=== PATIENT | male | born 1965 | race African-American/Black ===

== ENCOUNTER 2020-03-03 09:01 | Outpatient (REF) | payer OTHER, SELFPAY ==
[2020-03-03 10:47] LABS: Alanine Aminotransferase 25 U/L (0-40); Alkaline Phosphatase 97 U/L (39-117); Anion Gap 12 (12-20); Aspartate Amino Transferase 24 U/L (5-37); Bilirubin Total 0.5 mg/dL (0.0-1.0); Blood Urea Nitrogen 17 mg/dL (9-16); Calcium 8.8 mg/dL (8.4-10.2); Carbon Dioxide 31 mmol/L (22-29); Chloride 101 mmol/L (96-108); Cholesterol 167 mg/dL; Estimated Glomerular Filt Rate > 60; Glucose Fasting 95 mg/dL (60-99); HDL Cholesterol 30 mg/dL; LDL Cholesterol Calculated 117 mg/dl; Potassium 4.4 mmol/l (3.3-5.1); Sodium 140 mmol/L (135-145); Total Protein 7.4 g/dL (6.5-8.0); Triglycerides 100 mg/dL
[2020-03-03 11:00] LABS: Estimated Average Glucose 120 mg/dL; Hemoglobin A1c % 5.8 %
[2020-03-09 19:11] LABS: Stone Source KIDNEY
== END 2020-03-03 09:02 | disposition home or self-care (01) ==
LOC: HO.LAB 09:01
PROVIDERS: PCP Internal Medicine; Visit Provider Internal Medicine
DX: N20.0 Calculus of kidney (principal); E78.00 Pure hypercholesterolemia, unspecified
CPT/HCPCS: 80053; 80061; 82365; 83036; 88300

== ENCOUNTER 2020-05-15 13:00 | Outpatient (REF) | payer OTHER, SELFPAY | END 2020-05-15 13:01 | disposition home or self-care (01) | LOC: HO.LAB 13:00 | PROVIDERS: PCP Internal Medicine; Visit Provider Internal Medicine | DX: Z20.822 Contact with and (suspected) exposure to COVID-19 (principal) | CPT/HCPCS: 36415; C9803; U0003 ==

== ENCOUNTER 2020-06-12 08:55 | Outpatient (REF) | payer OTHER, SELFPAY ==
--- NOTE | ~2020-06-12 | XR_ITS ---
EXAMINATION: XR KNEE, RIGHT XR KNEE, LEFT CLINICAL INFORMATION: Pain. COMPARISON: None TECHNIQUE: AP and lateral views of the right and left knee. FINDINGS: Right knee: No acute fracture or dislocation. No joint space narrowing or marginal osteophytes. No osseous erosion. No abnormal soft tissue calcification. No significant joint effusion. Left knee: No acute fracture or dislocation. No joint space narrowing or marginal osteophytes. No osseous erosion. No abnormal soft tissue calcification. No significant joint effusion. XR/XR knee LT 2V IMPRESSION: Right knee: Unremarkable examination. Left knee: Unremarkable examination.
--- NOTE | ~2020-06-12 | XR_ITS ---
EXAMINATION: XR KNEE, RIGHT XR KNEE, LEFT CLINICAL INFORMATION: Pain. COMPARISON: None TECHNIQUE: AP and lateral views of the right and left knee. FINDINGS: Right knee: No acute fracture or dislocation. No joint space narrowing or marginal osteophytes. No osseous erosion. No abnormal soft tissue calcification. No significant joint effusion. Left knee: No acute fracture or dislocation. No joint space narrowing or marginal osteophytes. No osseous erosion. No abnormal soft tissue calcification. No significant joint effusion. XR/XR knee RT 2V IMPRESSION: Right knee: Unremarkable examination. Left knee: Unremarkable examination.
[2020-06-12 10:34] LABS: Alanine Aminotransferase 25 U/L (0-40); Albumin Level 3.9 g/dL (3.5-5.0); Alkaline Phosphatase 105 U/L (39-117); Anion Gap 12 (12-20); Aspartate Amino Transferase 20 U/L (5-37); Bilirubin Total 0.5 mg/dL (0.0-1.0); Blood Urea Nitrogen 21 mg/dL (9-16); Calcium 9.1 mg/dL (8.4-10.2); Carbon Dioxide 31 mmol/L (22-29); Chloride 101 mmol/L (96-108); Cholesterol 133 mg/dL; Estimated Glomerular Filt Rate > 60; Glucose Random 137 mg/dL (60-115); HDL Cholesterol 32 mg/dL; LDL Cholesterol Calculated 84 mg/dl; Potassium 4.8 mmol/L (3.3-5.1); Sodium 139 mmol/L (135-145); Total Protein 7.3 g/dL (6.5-8.0); Triglycerides 85 mg/dL
[2020-06-12 10:49] LABS: PSA,Total (Free>4and<10) 1.57 ng/mL (0.00-4.00)
== END 2020-06-12 08:56 | disposition home or self-care (01) ==
LOC: HO.LAB 08:55
PROVIDERS: Absent Provider Urology; PCP Internal Medicine; Visit Provider Internal Medicine
DX: E78.00 Pure hypercholesterolemia, unspecified (principal); M25.561 Pain in right knee; M25.562 Pain in left knee; R97.20 Elevated prostate specific antigen [PSA]; Z12.5 Encounter for screening for malignant neoplasm of prostate
CPT/HCPCS: 36415; 73560; 80053; 80061; 84153

== ENCOUNTER → 2020-06-18 09:17 | Outpatient (BNVA) | payer OTHER, SELFPAY | PROVIDERS: Visit Provider Urology ==

== ENCOUNTER → 2020-07-23 12:22 | Outpatient (BNVA) | payer OTHER, SELFPAY | PROVIDERS: PCP Internal Medicine; Visit Provider Surgery | DX: Z01.818 Encounter for other preprocedural examination (principal); E66.01 Morbid (severe) obesity due to excess calories; R06.02 Shortness of breath; Z68.42 Body mass index [BMI] 45.0-49.9, adult | CPT/HCPCS: 99202 ==

== ENCOUNTER → 2020-08-14 08:11 | Outpatient (BNVA) | payer OTHER, SELFPAY | PROVIDERS: PCP Internal Medicine; Visit Provider Surgery ==

== ENCOUNTER → 2020-11-02 12:48 | Outpatient (BNVA) | payer OTHER, SELFPAY | PROVIDERS: PCP Internal Medicine; Referring Provider Internal Medicine; Visit Provider Internal Medicine Cardiovascular Disease | DX: I49.3 Ventricular premature depolarization (principal); I25.10 Atherosclerotic heart disease of native coronary artery without angina pectoris; I10 Essential (primary) hypertension | CPT/HCPCS: 93005; 99212 ==

== ENCOUNTER 2020-11-02 13:41 | Emergency (ER) | payer OTHER, SELFPAY ==
--- NOTE | ~2020-11-02 | XR_ITS ---
EXAMINATION: XR FOOT, LEFT CLINICAL INFORMATION: Left fifth toe injury COMPARISON: None TECHNIQUE: AP, lateral, and oblique views of the left foot. FINDINGS: There is a nondisplaced fracture through the proximal phalanx of the fifth toe. No other fracture is seen. Joint spaces are normal. There is a small osteophyte at the Achilles tendon insertion to the calcaneus. Soft tissues are otherwise unremarkable. XR/XR foot LT min 3V IMPRESSION: Nondisplaced fracture of the proximal phalanx of the fifth toe.
[2020-11-02 13:46] VITALS: BP 156/86; PULSE 82; RESP 17; TEMP 36.7; O2SAT 96; BMI 50.2
--- NOTE | 2020-11-02 14:47 | ED_ITS ---
HPI - Extremity Injury (Lower) General Chief Complaint: Extremity Injury, Lower Stated Complaint: broken toe?? Time Seen by Provider: 11/02/20 14:01 Source: patient Mode of arrival: ambulatory Limitations: no limitations History of Present Illness HPI Narrative: 55-year-old male presenting to the emergency department with left pinky toe pain. Patient states last evening he was walking to the bathroom around 02:00 when he is tripped over a suitcase striking his left pinky toe since he has had pain is concerned it is broken. Denies any medications prior to arrival. Denies head injury or other areas of discomfort/ trauma. Related Data Home Medications Medication Instructions Recorded Confirmed aspirin 81 mg tablet,delayed 81 mg PO DAILY 03/18/20 11/02/20 release finasteride 5 mg tablet 5 mg PO DAILY 06/18/20 11/02/20 Previous Rx's Medication Instructions Recorded atorvastatin 80 mg tablet 80 mg PO BEDTIME #90 tab 03/18/20 valsartan 320 mg tablet 320 mg PO DAILY #90 tab 03/18/20 sildenafil 100 mg tablet 100 mg PO .PRN PRN 30 Days #30 tab 06/18/20 amlodipine 5 mg tablet 5 mg PO DAILY #90 tab 10/07/20 tamsulosin 0.4 mg capsule 0.4 mg PO DAILY 90 Days #90 cap 10/08/20 Allergies Allergy/AdvReac Type Severity Reaction Status Date / Time No Known Allergies Allergy Verified 11/02/20 13:46 [No Known Allergies*] Review of Systems Review of Systems: Constitutional : No Weight loss, No Fever, No Chills, No Night Sweats, No Fatigue, No Malaise ENT/Mouth : No Hearing loss, No Ear Pain, No Nasal Congestion, No Sinus Pain, No Hoarseness, No sore throat, No Rhinorrhea, No Swallowing Difficulty Eyes: No Eye Pain, No Swelling, No Redness, No Foreign Body, No Discharge, No Vision Changes Cardiovascular : No Chest Pain, No SOB, No Dyspnea on Exertion, No Orthopnea, No Edema, No Palpitations Respiratory : No Cough, No Sputum, No Wheezing, No Smoke Exposure, No Dyspnea Gastrointestinal : No Nausea, No Vomiting, No Diarrhea, No Constipation, No abdominal Pain, No Hematochezia, No Melena Genitourinary : no irregular bleeding, No Dysuria, No Urinary Frequency, No Hematuria, No Urinary Incontinence, No Urgency, No Flank Pain, No Urinary Flow Changes, No Hesitancy Musculoskeletal : + joint pain, No Myalgias, + Joint Swelling Skin : No Skin Lesions, No rash Neuro : No Weakness, No Numbness, No Paresthesias, No Loss of Consciousness, No Dizziness, No Headache Psych : No Anxiety/Panic, No Depression, No SI/HI/AH/VH, No Social Issues, Heme/Lymph: No Bruising, No Bleeding,No Lymphadenopathy Endocrine : No Polyuria, No Polydipsia, No Temperature Intolerance [facility] Past Medical History Attestation statement: The following information was validated with the patient. Source: old records reviewed and obtained from family Medical History (Updated 11/02/20 @ 14:48 by TIANA Casas) BPH (benign prostatic hyperplasia) Coronary artery disease Hypercholesterolemia Hypertension Insomnia Morbid obesity Nephrolithiasis Obstructive sleep apnea PVCs (premature ventricular contractions) Surgical History History of carpal tunnel surgery of left wrist History of colonoscopy History of prostate biopsy Family History Family History Father S/P CABG x 1 Prostate cancer Diabetes Hypertension Mother Diabetes Hypertension Sister Hypertension Social History Social History Alcohol intake: never Patient Tobacco Use Status: Never used Tobacco Advance Directives: No Advance Directives Information Provided: No Physical Exam Vital Signs: Vital Signs: Last Vital Signs Temp 98.1 F 11/02/20 13:46 Pulse 82 11/02/20 13:46 Resp 17 11/02/20 13:46 BP 156/86 H 11/02/20 13:46 Pulse Ox 96 11/02/20 13:46 Body Mass Index 50.2 vital signs have been reviewed as normal and appeared to be correct. Blood pressure normal. Heart rate normal. Respiration rate normal. Temperature normal. Oxygen saturation normal. Appearance: Alert. Oriented X3. No acute distress. Head: Normal external exam. Normocephalic. Atraumatic. No Noel signs noted. No raccoon eyes noted Eyes: Conjunctiva and sclera normal. ENT: EAC normal. Moist mucous membranes. No drooling noted. No muffled voice noted. Neck: Normal inspection. Neck supple. FROM. No meningeal signs. CVS: Pulses normal throughout. Respiratory: No respiratory distress. Painless inspiration. No accessory muscle usage noted Abdomen: No visible injury noted. Back: Full range of motion noted. Skin: Skin warm and dry. Normal skin color. Normal skin turgor. Extremities: No lower extremity edema. Extremities exhibit normal range of motion. Patient with mild edema to the left 5th metatarsal joint pain to palpation over the proximal expect. Good distal pulses good capillary refill full range of motion without isolated tenderness to other areas of the left foot. Neuro: Oriented X 3. No motor deficit. No sensory deficit. Course Course Course Narrative: X-ray is negative will discharge home at this time with close outpatient follow-up and strict return precautions. MDM - Extremity Injury (Lower) MDM Narrative Medical decision making narrative: Patient's vital signs are stable and he is afebrile patient presenting to the ED with left 5th metatarsal injury concerning for fracture will obtain plain films looking for evidence of fracture dislocation. Will continue to monitor reassess pending the above foot is otherwise neurovascularly intact. No other acute signs of injury or trauma and no wounds or lacerations noted. Discharge Plan Discharge Clinical Impression: Fracture of toe Qualifiers: Encounter type: initial encounter Toe: lesser toe Fracture type: closed Phalanx: proximal Fracture alignment: nondisplaced Laterality: left Qualified Code(s): S92.515A - Nondisplaced fracture of proximal phalanx of left lesser toe(s), initial encounter for closed fracture Patient Disposition: Home, Self-Care Instructions: Toe Fracture (ED) Additional Instructions: You were seen in the emergency department today for left toe injury and x-ray was performed with evidence of a nondisplaced proximal 5th digit fracture that will heal on its own with supportive care. Arnav tape was placed on the wound which will help with healing please use a closed toed shoe to also aid in healing. Change arnav-tape once daily. Follow-up with your doctor if pain persists. Prescriptions: No Action amlodipine 5 mg tablet 5 mg PO DAILY Qty: 90 RF: 2 tamsulosin 0.4 mg capsule 0.4 mg PO DAILY 90 Days Qty: 90 RF: 2 aspirin [Adult Aspirin Regimen] 81 mg tablet,delayed release (DR/EC) 81 mg PO DAILY RF: 0 atorvastatin 80 mg tablet 80 mg PO BEDTIME Qty: 90 RF: 1 valsartan 320 mg tablet 320 mg PO DAILY Qty: 90 RF: 2 finasteride 5 mg tablet 5 mg PO DAILY RF: 0 sildenafil 100 mg tablet 100 mg PO .PRN PRN (Reason: sexual activity) 30 Days Qty: 30 RF: 1 Interventions: ED Discharge Assessment Last Done: 11/02/20 15:10 Discharge Date/Time: 11/02/20 15:12 Print Language: Malay
== END 2020-11-02 15:12 | disposition home or self-care (01) ==
PROVIDERS: Emergency Provider Emergency Medicine; PCP Internal Medicine
DX: S92.515A Nondisplaced fracture of proximal phalanx of left lesser toe(s), initial encounter for closed fracture (principal); I10 Essential (primary) hypertension; Z79.899 Other long term (current) drug therapy; W18.41XA Slipping, tripping and stumbling without falling due to stepping on object, initial encounter; Y93.9 Activity, unspecified; Y92.9 Unspecified place or not applicable; Y99.9 Unspecified external cause status
CPT/HCPCS: 73630; 99283

== ENCOUNTER 2020-11-20 08:26 | Outpatient (REF) | payer OTHER, SELFPAY ==
[2020-11-20 09:19] LABS: MANUAL DIFF FLAG NO
[2020-11-20 09:25] LABS: Basophils Absolute Auto 0.1 X10*3/uL (0.0-0.2); Basophils Percent Auto 0.5 % (0-2); Eosinophils Absolute Auto 0.1 X10*3/uL (0.0-0.4); Hematocrit 48.6 % (42-52); Hemoglobin 15.5 g/dl (14.0-18.0); Imm Gran Abs Auto 0.03 X10*3/uL (0.00-0.03); Imm Gran Pct Auto 0.3 % (0.0-0.4); Lymphocytes Percent Auto 17.7 % (20-40); Mean Corpuscular HGB Conc 31.9 g/dl (31.0-36.0); Mean Corpuscular Hemoglobin 28.7 pg (27.0-33.0); Mean Corpuscular Volume 89.8 fL (80-98); Mean Platelet Volume 9.5 fL (9.4-12.4); Monocytes Percent Auto 8.4 % (2-11); Neutrophils Absolute Auto 8.3 X10*3/uL (2.0-8.3); Neutrophils Percent Auto 72.1 % (45-73); Platelet Count 277 X10*3/uL (160-400); Red Blood Count 5.41 X10*6/uL (4.60-5.80); Red Cell Distribution Width 14.6 % (11.0-16.0); White Blood Count 11.4 X10*3/uL (4.8-10.8)
[2020-11-20 09:30] LABS: Estimated Average Glucose 137 mg/dL; Hemoglobin A1c % 6.4 %
[2020-11-20 09:44] LABS: Carbon Dioxide 32 mmol/L (22-29); Chloride 102 mmol/L (96-108); Potassium 4.5 mmol/L (3.3-5.1); Sodium 140 mmol/L (135-145)
[2020-11-20 09:45] LABS: Alanine Aminotransferase 34 U/L (0-40); Alkaline Phosphatase 107 U/L (39-117); Anion Gap 11 (12-20); Aspartate Amino Transferase 30 U/L (5-37); Bilirubin Total 0.6 mg/dL (0.0-1.0); Blood Urea Nitrogen 18 mg/dL (9-16); C Reactive Protein 1.97 mg/dL (< or = 0.50); Calcium 9.6 mg/dL (8.4-10.2); Cholesterol 134 mg/dL; Estimated Glomerular Filt Rate > 60; Glucose Fasting 127 mg/dL (60-99); HDL Cholesterol 30 mg/dL; Iron 46 mcg/dL (45-160); LDL Cholesterol Calculated 90 mg/dl; Percent Iron Saturation 20 % (15-50); Total Iron Binding Capacity 233 mcg/dL (228-428); Total Protein 7.4 g/dL (6.5-8.0); Triglycerides 74 mg/dL; Unsaturated Iron Binding 187 ug/dL
[2020-11-20 10:05] LABS: Thyroid Stimulating Hormone 3.02 uIU/mL (0.32-4.0); Vitamin D 25-OH Total 9.6 ng/mL (>30)
[2020-11-20 10:25] LABS: Vitamin B12 292 pg/mL (200-900)
[2020-11-20 11:05] LABS: Prostate Specific Antigen 1.39 ng/mL (<0.05-4.0)
[2020-11-23 15:47] LABS: Calcium (PTHI) 9.4 mg/dL (8.6-10.3); PTHI 58 pg/mL (14-64)
[2020-11-24 17:26] LABS: Zinc 64 mcg/dL (60-130)
[2020-11-25 15:37] LABS: Vitamin A 29 mcg/dL (38-98)
[2020-11-26 15:01] LABS: Vitamin B1 9 nmol/L (8-30)
== END 2020-11-20 08:27 | disposition home or self-care (01) ==
LOC: HO.LAB 08:26
PROVIDERS: Surgery; PCP Internal Medicine; Visit Provider Urology
DX: Z01.818 Encounter for other preprocedural examination (principal); Z12.5 Encounter for screening for malignant neoplasm of prostate; K91.2 Postsurgical malabsorption, not elsewhere classified; Z90.3 Acquired absence of stomach [part of]; N13.8 Other obstructive and reflux uropathy; N40.1 Benign prostatic hyperplasia with lower urinary tract symptoms; R97.20 Elevated prostate specific antigen [PSA]
CPT/HCPCS: 36415; 80053; 80061; 82306; 82607; 83036; 83540; 83970; 84153; 84425; 84443; 84590; 84630; 85025; 86140

== ENCOUNTER → 2020-12-01 10:24 | Outpatient (BNVA) | payer OTHER, SELFPAY | PROVIDERS: PCP Internal Medicine; Visit Provider Urology | DX: N40.1 Benign prostatic hyperplasia with lower urinary tract symptoms (principal); N13.8 Other obstructive and reflux uropathy; N52.9 Male erectile dysfunction, unspecified; R97.20 Elevated prostate specific antigen [PSA] | CPT/HCPCS: 51798; 99212 ==

== ENCOUNTER 2021-05-25 07:43 | Outpatient (REF) | payer OTHER, SELFPAY ==
[2021-05-25 09:14] LABS: PSA,Total (Free>4and<10) 1.32 ng/mL (0.00-4.00)
== END 2021-05-25 07:44 | disposition home or self-care (01) ==
LOC: HO.LAB 07:43
PROVIDERS: PCP Internal Medicine; Visit Provider Urology
DX: Z12.5 Encounter for screening for malignant neoplasm of prostate (principal); N40.1 Benign prostatic hyperplasia with lower urinary tract symptoms; N13.8 Other obstructive and reflux uropathy
CPT/HCPCS: 36415; 84153

== ENCOUNTER → 2021-06-03 11:42 | Outpatient (BNVA) | payer OTHER, SELFPAY | PROVIDERS: PCP Internal Medicine; Visit Provider Urology ==

== ENCOUNTER 2021-07-20 08:53 | Outpatient (REF) | payer OTHER, SELFPAY ==
[2021-07-20 09:11] LABS: MANUAL DIFF FLAG NO
[2021-07-20 09:31] LABS: Basophils Absolute Auto 0.1 X10*3/uL (0.0-0.2); Basophils Percent Auto 0.6 % (0-2); Eosinophils Absolute Auto 0.1 X10*3/uL (0.0-0.4); Eosinophils Percent Auto 0.8 % (0-4); Hematocrit 48.9 % (42.0-52.0); Hemoglobin 15.5 g/dl (14.0-18.0); Imm Gran Abs Auto 0.04 X10*3/uL (0.00-0.03); Imm Gran Pct Auto 0.3 % (0.0-0.4); Lymphocytes Absolute Auto 2.2 X10*3/uL (1.2-4.9); Mean Corpuscular HGB Conc 31.7 g/dl (31.0-36.0); Mean Corpuscular Hemoglobin 28.3 pg (27.0-33.0); Mean Corpuscular Volume 89.2 fL (80.0-98.0); Mean Platelet Volume 9.5 fL (9.4-12.4); Monocytes Absolute Auto 0.8 X10*3/uL (0.1-1.2); Monocytes Percent Auto 7.1 % (2-11); Neutrophils Absolute Auto 8.5 x10*3/uL (2.0-8.3); Neutrophils Percent Auto 72.2 % (45-73); Platelet Count 293 X10*3/uL (160-400); Red Blood Count 5.48 X10*6/uL (4.60-5.80); White Blood Count 11.8 X10*3/uL (4.8-10.8)
[2021-07-20 09:49] LABS: Estimated Average Glucose 131 mg/dL; Hemoglobin A1c % 6.2 %
[2021-07-20 10:14] LABS: Free T4 (Free Thyroxine) 1.01 ng/dL (0.71-1.85); Prostate Specific Antigen Scr 0.98 ng/mL (<0.05-4.0)
[2021-07-20 10:29] LABS: Folate 5.4 ng/mL (> or = 4.0); Vitamin B12 245 pg/mL (200-900)
== END 2021-07-20 08:54 | disposition home or self-care (01) ==
LOC: HO.LAB 08:53
PROVIDERS: PCP Internal Medicine; Visit Provider Internal Medicine
DX: Z01.818 Encounter for other preprocedural examination (principal); I25.10 Atherosclerotic heart disease of native coronary artery without angina pectoris; E78.00 Pure hypercholesterolemia, unspecified; E55.9 Vitamin D deficiency, unspecified; Z12.5 Encounter for screening for malignant neoplasm of prostate
CPT/HCPCS: 36415; 82607; 82746; 83036; 84153; 84439; 85025

== ENCOUNTER 2021-08-23 10:01 | Outpatient (REF) | payer OTHER, SELFPAY ==
--- NOTE | ~2021-08-23 | XR_ITS ---
EXAMINATION: XR KNEE, LEFT CLINICAL INFORMATION: Knee pain. COMPARISON: X-ray 06/12/2020 TECHNIQUE: Four views of the left knee. FINDINGS: No fracture or dislocation. Normal alignment. Joint spaces are maintained. No significant effusion seen. No abnormal soft tissue calcification. XR/XR knee LT 4V IMPRESSION: No acute osseous abnormality.
== END 2021-08-23 10:02 | disposition home or self-care (01) ==
LOC: HO.XRAY 10:01
PROVIDERS: PCP Internal Medicine; Visit Provider Internal Medicine
DX: M25.562 Pain in left knee (principal)
CPT/HCPCS: 73564

== ENCOUNTER 2021-09-21 10:45 | Outpatient (REF) | payer OTHER, SELFPAY ==
--- NOTE | 2021-09-21 17:28 | PFT_ITS ---
Forced vital capacity 55%, FEV1 59%. FEV1/FVC ratio is 85. RFF12-80 is 72% and MVV 53%. Post bronchodilator therapy, there is no change. Total lung capacity 58%. Residual volume 65%. Diffusion capacity 84%. CONCLUSION: Restrictive lung disease, moderately severe. No obstructive airway disorder. MD ANTONETTE Lima/MATI / [id number]
== END 2021-09-21 10:46 | disposition home or self-care (01) ==
LOC: HO.RESP 10:45
PROVIDERS: PCP Internal Medicine; Visit Provider Internal Medicine
DX: R06.02 Shortness of breath (principal)
CPT/HCPCS: 94060; 94727; 94729

== ENCOUNTER 2021-09-23 13:51 | Outpatient (REF) | payer OTHER, SELFPAY ==
--- NOTE | ~2021-09-23 | US_ITS ---
EXAMINATION: US RETROPERITONEAL LIMITED (RENAL ONLY) CLINICAL INFORMATION: Calculus of kidney. COMPARISON: CT abdomen pelvis 11/07/2019. US abdomen 10/30/2018.US renal 09/10/2018. TECHNIQUE: Real-time imaging of the kidneys. FINDINGS: RIGHT KIDNEY: 12.3 x 6.1 x 4.6 cm (SAG x AP x TRV). The kidney is normal in size, contour, and echogenicity. Renal cortical thickness is normal. No calculi or focal parenchymal lesions. No hydronephrosis. LEFT KIDNEY: 13.5 x 6.2 x 5.8 cm (SAG x AP x TRV). The kidney is normal in size, contour, and echogenicity. Renal cortical thickness is normal. No calculi or focal parenchymal lesions. No hydronephrosis. There is a small hyperechoic observation in the lower pole, likely representing a nonobstructive calculus or small vascular calcification. US/US renal BI IMPRESSION: Small approximately 0.3 cm hyperechoic focus in the lower pole of the left kidney, representing either a nonobstructive calculus or vascular calcification. No hydronephrosis.
== END 2021-09-23 13:52 | disposition home or self-care (01) ==
LOC: HO.US 13:51
DX: N20.0 Calculus of kidney (principal)
CPT/HCPCS: 76775

== ENCOUNTER 2021-10-29 10:28 | Outpatient (REF) | payer OTHER, SELFPAY ==
[2021-10-29 10:38] LABS: MANUAL DIFF FLAG NO
[2021-10-29 11:18] LABS: Basophils Absolute Auto 0.1 X10*3/uL (0.0-0.2); Basophils Percent Auto 0.6 % (0-2); Eosinophils Absolute Auto 0.1 X10*3/uL (0.0-0.4); Eosinophils Percent Auto 1.1 % (0-4); Hematocrit 46.9 % (42.0-52.0); Hemoglobin 15.1 g/dl (14.0-18.0); Imm Gran Abs Auto 0.03 X10*3/uL (0.00-0.03); Imm Gran Pct Auto 0.3 % (0.0-0.4); Lymphocytes Absolute Auto 2.3 X10*3/uL (1.2-4.9); Lymphocytes Percent Auto 21.5 % (20-40); Mean Corpuscular HGB Conc 32.2 g/dl (31.0-36.0); Mean Corpuscular Hemoglobin 28.3 pg (27.0-33.0); Mean Corpuscular Volume 87.8 fL (80.0-98.0); Mean Platelet Volume 9.7 fL (9.4-12.4); Neutrophils Absolute Auto 7.3 x10*3/uL (2.0-8.3); Neutrophils Percent Auto 67.5 % (45-73); Platelet Count 295 X10*3/uL (160-400); Red Blood Count 5.34 X10*6/uL (4.60-5.80); Red Cell Distribution Width 15.2 % (11.0-16.0); White Blood Count 10.8 X10*3/uL (4.8-10.8)
[2021-10-29 11:58] LABS: Alanine Aminotransferase 23 U/L (0-40); Albumin Level 3.8 g/dL (3.5-5.0); Alkaline Phosphatase 114 U/L (39-117); Anion Gap 13 (12-20); Aspartate Amino Transferase 25 U/L (5-37); Bilirubin Total 0.2 mg/dL (0.0-1.0); Blood Urea Nitrogen 17 mg/dL (9-16); Calcium 8.8 mg/dL (8.4-10.2); Carbon Dioxide 26 mmol/L (22-29); Chloride 103 mmol/L (96-108); Cholesterol 127 mg/dL; Estimated Glomerular Filt Rate > 60; Glucose Random 140 mg/dL (60-115); HDL Cholesterol 28 mg/dL; LDL Cholesterol Calculated 82 mg/dl; Potassium 4.1 mmol/L (3.3-5.1); Sodium 138 mmol/L (135-145); Total Protein 7.3 g/dL (6.5-8.0); Triglycerides 87 mg/dL
[2021-10-29 12:11] LABS: Free T4 (Free Thyroxine) 1.03 ng/dL (0.71-1.85); Prostate Specific Antigen Scr 1.02 ng/mL (<0.05-4.0); Thyroid Stimulating Hormone 2.28 uIU/mL (0.32-4.0)
[2021-10-29 12:18] LABS: Creatinine Urine 342.62 mg/dL; Microalbum/Creatinine Ratio Ur 89.8 ug/mg cr
[2021-10-29 12:22] LABS: Folate 8.3 ng/mL (> or = 4.0); Vitamin B12 305 pg/mL (200-900)
== END 2021-10-29 10:29 | disposition home or self-care (01) ==
LOC: HO.LAB 10:28
PROVIDERS: PCP Internal Medicine; Visit Provider Internal Medicine
DX: Z12.5 Encounter for screening for malignant neoplasm of prostate (principal); E11.65 Type 2 diabetes mellitus with hyperglycemia; E78.00 Pure hypercholesterolemia, unspecified; I25.10 Atherosclerotic heart disease of native coronary artery without angina pectoris; N13.8 Other obstructive and reflux uropathy; N40.1 Benign prostatic hyperplasia with lower urinary tract symptoms
CPT/HCPCS: 36415; 80053; 80061; 82043; 82607; 82746; 84153; 84439; 84443; 85025

== ENCOUNTER 2021-12-24 11:05 | Outpatient (REF) | payer OTHER, SELFPAY ==
[2021-12-24 12:53] LABS: Prostate Specific Antigen 0.99 ng/mL (<0.05-4.0)
== END 2021-12-24 11:06 | disposition home or self-care (01) ==
LOC: HO.LAB 11:05
PROVIDERS: PCP Internal Medicine; Visit Provider Urology
DX: Z12.5 Encounter for screening for malignant neoplasm of prostate (principal); N40.1 Benign prostatic hyperplasia with lower urinary tract symptoms; N13.8 Other obstructive and reflux uropathy
CPT/HCPCS: 36415; 84153

== ENCOUNTER 2022-04-11 10:19 | Outpatient (REF) | payer OTHER, SELFPAY ==
[2022-04-11 11:12] LABS: Estimated Average Glucose 143 mg/dL; Hemoglobin A1c % 6.6 %
[2022-04-11 11:49] LABS: Alanine Aminotransferase 20 U/L (0-40); Albumin Level 3.9 g/dL (3.5-5.0); Alkaline Phosphatase 96 U/L (39-117); Anion Gap 12 (12-20); Aspartate Amino Transferase 18 U/L (5-37); Bilirubin Direct 0.2 mg/dL (0.0-0.5); Bilirubin Total 0.5 mg/dL (0.0-1.0); Blood Urea Nitrogen 16 mg/dL (9-16); Calcium 9.4 mg/dL (8.4-10.2); Carbon Dioxide 28 mmol/L (22-29); Chloride 102 mmol/L (96-108); Cholesterol 158 mg/dL; Estimated Glomerular Filt Rate > 60; Glucose Random 121 mg/dL (60-115); HDL Cholesterol 29 mg/dL; LDL Cholesterol Calculated 111 mg/dl; Potassium 4.2 mmol/L (3.3-5.1); Sodium 138 mmol/L (135-145); Thyroid Stimulating Hormone 3.03 uIU/mL (0.32-4.0); Total Protein 7.2 g/dL (6.5-8.0); Triglycerides 93 mg/dL
== END 2022-04-11 10:20 | disposition home or self-care (01) ==
LOC: HO.LAB 10:19
PROVIDERS: PCP Internal Medicine; Visit Provider Internal Medicine
DX: E78.00 Pure hypercholesterolemia, unspecified (principal); I25.10 Atherosclerotic heart disease of native coronary artery without angina pectoris; R79.89 Other specified abnormal findings of blood chemistry
CPT/HCPCS: 36415; 80053; 80061; 82248; 83036; 84443

== ENCOUNTER 2022-05-15 17:10 | Emergency (ER) | payer OTHER, SELFPAY ==
--- NOTE | 2022-05-15 17:38 | ED_ITS ---
HPI - URI/Sore Throat General Chief Complaint: General Medical Stated Complaint: sore throat, white dots Time Seen by Provider: 05/15/22 18:21 Source: patient Mode of arrival: ambulatory Limitations: no limitations History of Present Illness HPI Narrative: Patient is a 56 year old male presents to the emergency department for evaluation of sore throat. onset 2 days ago. associated cough, nasal congestion. Reports his sister has been ill with similar symptoms. Related Data Home Medications Medication Instructions Recorded Confirmed aspirin 81 mg tablet,delayed 81 mg PO DAILY 03/18/20 04/14/22 release (Adult Aspirin Regimen) Previous Rx's Medication Instructions Recorded sildenafil 100 mg tablet 100 mg PO .PRN PRN sexual activity 06/18/20 30 days #30 tabs CPAP #1 ea 01/15/21 valsartan 320 mg tablet 320 mg PO DAILY #90 tabs 10/18/21 finasteride 5 mg tablet 5 mg PO DAILY 90 days #90 tabs 01/03/22 amlodipine 5 mg tablet 5 mg PO DAILY #90 tabs 03/30/22 tamsulosin 0.4 mg capsule 0.4 mg PO DAILY 90 days #90 caps 03/30/22 meloxicam 7.5 mg tablet 7.5 mg PO DAILY #20 tabs 04/14/22 rosuvastatin 40 mg tablet 40 mg PO DAILY 90 days #90 tabs 04/14/22 nirmatrelvir 300 mg (150 mg See Rx Instructions PO .COMPLEX 05/03/22 x2)-ritonavir 100 mg tablet,dose #30 ea pack(EUA) (Paxlovid) Allergies Allergy/AdvReac Type Severity Reaction Status Date / Time metformin AdvReac Intermediate Diarrhea Verified 05/15/22 17:43 Review of Systems Review of Systems: Constitutional: No fever. No chills. No weakness. No fatigue. ENT/ Mouth: No Ear Pain, positive Nasal Congestion, positive sore throat, No Rhinorrhea, No Swallowing Difficulty Skin: No rash or itching. Cardiovascular: No chest pain. No palpitations. Respiratory: No shortness of breath. Positive cough. No sputum production. Gastrointestinal: No nausea. No vomiting. No diarrhea. No abdominal pain. Genitourinary: No burning micturition. No urinary frequency. Neurologic: No headache. No dizziness. No syncope. No numbness or tingling in the extremities. Musculoskeletal: No muscle pain. No back pain. No joint pain or stiffness. Yes all other systems are reviewed and are negative [facility] Past Medical History Attestation statement: The following information was validated with the patient. Source: old records reviewed Medical History BPH (benign prostatic hyperplasia) Coronary artery disease Erectile dysfunction Hypercholesterolemia Hypertension Impaired glucose tolerance Insomnia Morbid obesity Nephrolithiasis Obstructive sleep apnea PVCs (premature ventricular contractions) Surgical History History of carpal tunnel surgery of left wrist History of colonoscopy History of prostate biopsy Family History Family History Father S/P CABG x 1 Prostate cancer Diabetes Hypertension Mother Diabetes Hypertension Sister Hypertension Social History Social History Housing: House Alcohol intake: never Patient Tobacco Use Status: Never used Tobacco e-Cigarette/Vaping Use: Never Used Second Hand Smoke Exposure: No Advance Directives: No Advance Directives Information Provided: No service: No Current occupational status: employed Cognitive needs: No Hearing needs: No Vision needs: No Physical Exam Vital Signs: Vital Signs: Last Vital Signs Temp 97.0 F 05/15/22 17:39 Pulse 71 05/15/22 17:39 Resp 17 05/15/22 17:39 BP 155/99 H 05/15/22 17:39 Pulse Ox 96 05/15/22 17:39 O2 Del Method 05/15/22 17:39 BMI result Body Mass Index 49.5 Appearance: Alert.?Oriented to person, place and time. No acute distress.?Normal affect. Eyes: Pupils equal, round and reactive to light.? ENT: TM normal bilaterally. Pharynx mildly erythematous without exudates, no tonsillar hypertrophy, uvula midline, no trismus, no drooling.?? Neck: Normal inspection.? Neck supple.??No cervical adenopathy CVS: Heart sounds normal. Normal heart rate and rhythm.? Pulses normal.?? Respiratory: No respiratory distress.? Lung sounds clear to auscultation bilat erally?? Abdomen: Soft and non-tender. Normoactive bowel sounds. Skin: Skin warm and dry.? Normal skin color.? ? Extremities: No lower extremity edema.? Neuro: Moves all extremities spontaneously. Sensation intact bilaterally. No motor deficits. Ambulates with normal steady gait. Medical Decision Making Medical Decision Making [facility] Narrative: Patient is a 56-year-old male presents emergency department for evaluation of upper respiratory symptoms was sore throat and congestion. Overall patient well appearing, afebrile without tachycardia tachypnea or hypoxia, physical examination pertinent for pharyngitis, no evidence of peritonsillar abscess. He is able to tolerate oral solids and liquids without complication. COVID- 19/influenza/strep testing were all negative. Suspect viral etiology of pharyngitis at this time. Reviewed worrisome signs and symptoms of warrant re- evaluation in the emergency department. Advised outpatient follow-up with primary care provider as needed. All questions answered. Stable for discharge. Differential Diagnosis Differential Diagnoses: The differential diagnosis associated with the presentation includes (Viral upper respiratory infection, RO pharyngitis, bacterial pharyngitis, GERD, peritonsillar abscess) Lab Data MDM Lab Attestation statement: I reviewed the patient's lab results. Labs: Lab Results 05/15/22 05/15/22 05/15/22 Range/Units 17:50 17:50 17:50 COVID-19 (CRISTIAN) Negative (Negative) COVID-19 Clin Com See Note Influenza Type A (BASHIR) Negative (Negative) Influenza Type B (BASHIR) Negative (Negative) Influenza A & B Note See Note S. pyogenes GrpA BASHIR Negative (Negative) Prescription Management I considered prescription management with: Antibiotic (Suspect viral etiology at this time) Discharge Plan Discharge Clinical Impression: Pharyngitis Patient Disposition: Home, Self-Care Instructions: Pharyngitis (ED) Additional Instructions: As discussed, testing for COVID, flu, and strep were all negative today. At this time symptoms are most likely due to a viral infection. Be sure to stay well hydrated, use throat lozenges/Chloraseptic throat spray You can take ibuprofen 200 mg, 3 tablets (600mg) every 6-8 hours as needed for pain, in addition to Tylenol 500 mg, 2 tablets (1,000mg) every 4-6 hours as needed for pain, but not to exceed 3 doses daily (3,000mg).? Follow-up with your primary care provider as needed for persistent symptoms. Return back to emergency department any new or worsening symptoms or concerns. Prescriptions: No Action (DME) CPAP See Rx Instructions .Route .MEDSUPPLY Qty: 1 0RF Rx Instructions: As directed valsartan 320 mg tablet 320 mg PO DAILY Qty: 90 2RF finasteride 5 mg tablet 5 mg PO DAILY 90 Days Qty: 90 1RF amlodipine 5 mg tablet 5 mg PO DAILY Qty: 90 2RF tamsulosin 0.4 mg capsule 0.4 mg PO DAILY 90 Days Qty: 90 1RF Paxlovid (EUA) 300 mg (150 mg x 2)-100 mg tablets,dose pack See Rx Instructions PO .COMPLEX Qty: 30 0RF Rx Instructions: take TWO 150 mg tablets of nirmatrelvir with ONE 100 mg tablet of ritonavir twice daily for 5 days PO aspirin [Adult Aspirin Regimen] 81 mg tablet,delayed release (DR/EC) 81 mg PO DAILY rosuvastatin 40 mg tablet 40 mg PO DAILY 90 Days Qty: 90 1RF meloxicam 7.5 mg tablet 7.5 mg PO DAILY Qty: 20 1RF sildenafil 100 mg tablet 100 mg PO .PRN PRN (Reason: sexual activity) 30 Days Qty: 30 1RF Rx Instructions: administer 60 minutes before intended activity Referrals: Po,Mara Doyle MD [Primary Care Provider] -
[2022-05-15 17:39] VITALS: BP 155/99; PULSE 71; RESP 17; TEMP 36.1; O2SAT 96; BMI 49.5
[2022-05-15 18:04] LABS: IDNOW Serial# 6674DD1D; Strep A Nucleic Acid Negative (Negative)
[2022-05-15 18:17] LABS: COVID-19 Test Negative (Negative); IDNOW Serial# 16C4AD1C
[2022-05-15 18:18] LABS: IDNOW Serial# BCCEAD1C; Influenza A Negative (Negative); Influenza B2 Negative (Negative)
== END 2022-05-15 18:29 | disposition home or self-care (01) ==
PROVIDERS: Nurse Practitioner Family; Emergency Provider Internal Medicine; PCP Internal Medicine
DX: J02.9 Acute pharyngitis, unspecified (principal); R05.9 Cough, unspecified; Z20.822 Contact with and (suspected) exposure to COVID-19; Z20.828 Contact with and (suspected) exposure to other viral communicable diseases; Z79.899 Other long term (current) drug therapy
CPT/HCPCS: 87502; 87635; 87651; 99282

== ENCOUNTER 2022-07-11 09:52 | Outpatient (REF) | payer OTHER, SELFPAY ==
[2022-07-11 10:45] LABS: Estimated Average Glucose 151 mg/dL; Hemoglobin A1c % 6.9 %
[2022-07-11 11:42] LABS: Creatinine Urine 202.96 mg/dL
[2022-07-11 12:00] LABS: Alanine Aminotransferase 23 U/L (0-40); Albumin Level 3.6 g/dL (3.5-5.0); Alkaline Phosphatase 90 U/L (39-117); Anion Gap 14 (12-20); Aspartate Amino Transferase 24 U/L (5-37); Bilirubin Total 0.4 mg/dL (0.0-1.0); Blood Urea Nitrogen 17 mg/dL (9-16); Calcium 8.9 mg/dL (8.4-10.2); Carbon Dioxide 28 mmol/L (22-29); Chloride 102 mmol/L (96-108); Cholesterol 185 mg/dL; Estimated Glomerular Filt Rate > 60; Glucose Random 150 mg/dL (60-115); HDL Cholesterol 31 mg/dL; LDL Cholesterol Calculated 137 mg/dl; Potassium 4.3 mmol/L (3.3-5.1); Sodium 140 mmol/L (135-145); Total Protein 6.9 g/dL (6.5-8.0); Triglycerides 89 mg/dL
[2022-07-11 12:03] LABS: Vitamin D 25-OH Total 7.8 ng/mL (>30)
== END 2022-07-11 09:53 | disposition home or self-care (01) ==
LOC: HO.LAB 09:52
PROVIDERS: Surgery; PCP Internal Medicine; Visit Provider Internal Medicine
DX: Z01.818 Encounter for other preprocedural examination (principal); E11.65 Type 2 diabetes mellitus with hyperglycemia; E55.9 Vitamin D deficiency, unspecified; E78.00 Pure hypercholesterolemia, unspecified
CPT/HCPCS: 36415; 80053; 80061; 82306; 83036

== ENCOUNTER 2022-08-24 08:05 | Emergency (ER) | payer OTHER, SELFPAY ==
[2022-08-24 08:11] VITALS: BP 167/85; PULSE 67; RESP 18; TEMP 36.8; O2SAT 98; BMI 50.9
[2022-08-24 09:20] LABS: IDNOW Serial# 08D9AD1C; Strep A Nucleic Acid Negative (Negative)
[2022-08-24 09:25] LABS: COVID-19 Test Negative (Negative); IDNOW Serial# BCCEAD1C
--- NOTE | 2022-08-24 09:51 | ED.GENADULT ---
HPI - General Adult General Chief complaint: General Medical Stated complaint: stuffed nose, Time Seen by Provider: 08/24/22 08:56 Source: patient Mode of arrival: ambulatory History of Present Illness HPI narrative: 56-year-old male who presents with complaints of nasal congestion for the past few weeks and does wear a CPAP machine with the nasal cannula at night for baseline RAGHAV. He otherwise endorses cough, sore throat. But denies any fever or chills. Related Data Home Medications Medication Instructions Recorded Confirmed aspirin 81 mg tablet,delayed 81 mg PO DAILY 03/18/20 07/15/22 release (Adult Aspirin Regimen) Previous Rx's Medication Instructions Recorded CPAP #1 ea 01/15/21 amlodipine 5 mg tablet 5 mg PO DAILY #90 tabs 03/30/22 tamsulosin 0.4 mg capsule 0.4 mg PO DAILY 90 days #90 caps 03/30/22 rosuvastatin 40 mg tablet 40 mg PO DAILY 90 days #90 tabs 04/14/22 fluticasone propionate 50 1 spray intranasal Q12H #16 grams 05/26/22 mcg/actuation nasal spray,suspension (Flonase Allergy Relief) valsartan 320 mg tablet 320 mg PO DAILY #90 tabs 06/28/22 finasteride 5 mg tablet 5 mg PO DAILY 90 days #90 tabs 07/05/22 empagliflozin 10 mg tablet 10 mg PO DAILY #30 tabs 07/15/22 (Jardiance) ezetimibe 10 mg tablet (Zetia) 10 mg PO DAILY #30 tabs 07/15/22 Allergies Allergy/AdvReac Type Severity Reaction Status Date / Time metformin AdvReac Intermediate Diarrhea Verified 07/15/22 11:11 Review of Systems Review of Systems: Pertinent positives and negatives as stated in HPI [facility] Past Medical History Source: nursing notes reviewed Medical History BPH (benign prostatic hyperplasia) Coronary artery disease Erectile dysfunction Hypercholesterolemia Hypertension Impaired glucose tolerance Insomnia Morbid obesity Nephrolithiasis Obstructive sleep apnea PVCs (premature ventricular contractions) Surgical History History of carpal tunnel surgery of left wrist History of colonoscopy History of prostate biopsy Family History Family History Father S/P CABG x 1 Prostate cancer Diabetes Hypertension Mother Diabetes Hypertension Sister Hypertension Social History Social History Housing: House Alcohol intake: never Patient Tobacco Use Status: Never used Tobacco e-Cigarette/Vaping Use: Never Used Second Hand Smoke Exposure: No Advance Directives: No service: No Current occupational status: employed Cognitive needs: No Hearing needs: No Vision needs: No Physical Exam ED Vital Signs: Vital Signs - 24 hr 08/24/22 08:11 Temperature 98.2 F Pulse Rate 67 Respiratory Rate 18 Blood Pressure 167/85 H Pulse Oximetry 98 Oxygen Delivery Method Room Air BMI result Body Mass Index 50.9 VITAL SIGNS: Reviewed. GENERAL: Well developed, well nourished, in no acute distress. HEAD: Normocephalic/atraumatic EYES: PERRLA, EOMI EARS: Ext canals without abnormality, TMs non-bulging and non-erythematous NOSE: Nares patent bilateral, but obviously enlarged/erythematous/boggy turbinates OROPHARYNX: no oral lesions noted, posterior pharynx clear and non-erythematous without noted tonsillar enlargement/erythema/exudates NECK: Supple, no adenopathy LUNGS: Normal breath sounds. No adventitious sounds or accessory muscle use. SpO2<98> CARDIOVASCULAR: Regular rate and rhythm without noted murmurs, no JVD or lower extremity edema. ABDOMEN: Soft, non-tender, non-distended with bowel sounds. MUSCULOSKELETAL: No tenderness, deformities, or effusions noted on gross inspection. EXTREMITIES: No cyanosis, clubbing or edema. SKIN: Inspection of the skin reveals no rashes NEUROLOGIC: Alert and oriented x 4. Medical Decision Making Medical Decision Making MDM Narrative: 56-year-old male with history and clinical presentation suspicious or nasal congestion and irritation secondary to CPAP and will likely improve with the use of xgti-krm-jukmmop saline spray as well as some Flonase. Patient was recommended to follow-up with the primary care provider possibly had the humidification adjusted on his CPAP machine. All viral testing is negative. Differential Diagnosis Please see the discussion above Lab Data Please see the discussion above Labs: Lab Results 08/24/22 08/24/22 Range/Units 09:04 09:04 COVID-19 (CRISTIAN) Negative (Negative) COVID-19 Clin Com See Note S. pyogenes GrpA BASHIR Negative (Negative) External Record Review External record reviewed: Prior outpatient labs Discharge Plan Discharge Clinical Impression: Nasal congestion, RAGHAV on CPAP Patient Disposition: Home, Self-Care Instructions: Cold Symptoms (ED), How to Use Nasal [place] (ED) Additional Instructions: 1. Resume all home medications as prescribed. 2. Recommend xkwy-dge-jzrbitm saline spray to provide additional moisture to the nasal mucosa. Also recommend that you try pqmu-[id number] fluticasone (Flonase) for additional symptom relief. 3. Recommend discussing with your primary care provider. Return to the ER for any worsening symptoms. Prescriptions: No Action (DME) CPAP See Rx Instructions .Route .MEDSUPPLY Qty: 1 0RF Rx Instructions: As directed amlodipine 5 mg tablet 5 mg PO DAILY Qty: 90 2RF tamsulosin 0.4 mg capsule 0.4 mg PO DAILY 90 Days Qty: 90 1RF valsartan 320 mg tablet 320 mg PO DAILY Qty: 90 2RF finasteride 5 mg tablet 5 mg PO DAILY 90 Days Qty: 90 1RF aspirin [Adult Aspirin Regimen] 81 mg tablet,delayed release (DR/EC) 81 mg PO DAILY rosuvastatin 40 mg tablet 40 mg PO DAILY 90 Days Qty: 90 1RF ezetimibe [Zetia] 10 mg tablet 10 mg PO DAILY Qty: 30 5RF Jardiance 10 mg tablet 10 mg PO DAILY Qty: 30 3RF fluticasone propionate [Flonase Allergy Relief] 50 mcg/actuation spray,suspension 1 spray intranasal Q12H Qty: 16 0RF Rx Instructions: administer into each nostril Referrals: Mara Hurtado MD [Primary Care Provider] - Interventions: ED Discharge Assessment Last Done: 08/24/22 10:10 Discharge Date/Time: 08/24/22 10:10
== END 2022-08-24 10:10 | disposition home or self-care (01) ==
PROVIDERS: Emergency Provider Student in an Organized Health Care Education/Training Program; PCP Internal Medicine
DX: R09.81 Nasal congestion (principal); G47.33 Obstructive sleep apnea (adult) (pediatric); E78.00 Pure hypercholesterolemia, unspecified; I10 Essential (primary) hypertension; Z20.822 Contact with and (suspected) exposure to COVID-19; Z20.828 Contact with and (suspected) exposure to other viral communicable diseases; Z99.89 Dependence on other enabling machines and devices; Z79.02 Long term (current) use of antithrombotics/antiplatelets; Z79.82 Long term (current) use of aspirin; Z79.899 Other long term (current) drug therapy
CPT/HCPCS: 87635; 87651; 99282; 99283

== ENCOUNTER 2022-11-02 10:35 | Outpatient (REF) | payer OTHER, SELFPAY ==
--- NOTE | ~2022-11-02 | US_ITS ---
EXAMINATION: US RETROPERITONEAL LIMITED (RENAL ONLY) CLINICAL INFORMATION: Calculus of kidney. COMPARISON: Ultrasound retroperitoneal limited (renal only) 09/23/2021. TECHNIQUE: Real-time imaging of the kidneys. FINDINGS: RIGHT KIDNEY: 12.8 x 6.2 x 5.5 cm (SAG x AP x TRV). The kidney is normal in size, contour, and echogenicity. Renal cortical thickness is normal. No renal calculi or hydronephrosis. Benign-appearing renal cyst measuring 2.5 cm. No follow up imaging is recommended. LEFT KIDNEY: 13.0 x 5.9 x 5.4 cm (SAG x AP x TRV). The kidney is normal in size, contour, and echogenicity. Renal cortical thickness is normal. No hydronephrosis. Benign-appearing renal cyst measuring 1.3 cm. No follow up imaging is recommended. 8 mm nonobstructing mid to lower pole renal stone previously 5 mm. US/US renal BI IMPRESSION: 8 mm nonobstructing left mid to lower pole renal stone increased in size from prior
[2022-11-02 12:26] LABS: Estimated Average Glucose 123 mg/dL; Hemoglobin A1c % 5.9 %
[2022-11-02 13:03] LABS: Alanine Aminotransferase 48 U/L (0-40); Albumin Level 3.7 g/dL (3.5-5.0); Alkaline Phosphatase 85 U/L (39-117); Anion Gap 13 (12-20); Aspartate Amino Transferase 36 U/L (5-37); Bilirubin Total 0.6 mg/dL (0.0-1.0); Blood Urea Nitrogen 14 mg/dL (9-16); Calcium 9.2 mg/dL (8.4-10.2); Carbon Dioxide 27 mmol/L (22-29); Chloride 104 mmol/L (96-108); Cholesterol 110 mg/dL; Estimated Glomerular Filt Rate > 60; Glucose Random 109 mg/dL (60-115); HDL Cholesterol 33 mg/dL; LDL Cholesterol Calculated 61 mg/dl; Potassium 4.1 mmol/L (3.3-5.1); Sodium 140 mmol/L (135-145); Total Protein 7.4 g/dL (6.5-8.0); Triglycerides 80 mg/dL
== END 2022-11-02 10:36 | disposition home or self-care (01) ==
LOC: HO.US 10:35
PROVIDERS: Absent Provider Internal Medicine; PCP Internal Medicine; Visit Provider Urology
DX: N20.0 Calculus of kidney (principal); E11.65 Type 2 diabetes mellitus with hyperglycemia; E78.00 Pure hypercholesterolemia, unspecified
CPT/HCPCS: 36415; 76775; 80053; 80061; 83036

== ENCOUNTER 2022-11-03 11:16 | Outpatient (AMB) | payer OTHER, SELFPAY ==
[2022-11-03 11:25] VITALS: BP 112/70; PULSE 68; O2SAT 95; BMI 50.1
--- NOTE | 2022-11-03 11:25 | MHC.PC.OV ---
Vital Signs 11/03/22 11:25 Height 5 ft 11 in Weight 359 lb BMI 50.1 BP 112/70 Blood Pressure Location Lt brachial Position Sitting Pulse 68 Pulse Source Pulse Oximeter Temp Source Skin Pulse Oximetry (%) 95 Oxygen Delivery Method Room Air Intake Visit Reasons: DM, Cholesterol Allergies metformin Adverse Reaction (Intermediate, Verified 11/03/22 11:35) Diarrhea Medication List - Last Reconciled 11/03/22 by CHANDAN Costa amlodipine 5 mg PO DAILY aspirin (Adult Aspirin Regimen) 81 mg PO DAILY [CPAP As directed] empagliflozin (Jardiance) 10 mg PO DAILY ezetimibe (Zetia) 10 mg PO DAILY finasteride 5 mg PO DAILY 90 days fluticasone propionate 50 mcg/actuation (Flonase Allergy Relief) 1 spray intranasal Q12H rosuvastatin 40 mg PO DAILY 90 days tamsulosin 0.4 mg PO DAILY 90 days valsartan 320 mg PO DAILY Tobacco use date assessed: 11/03/22 HPI DM, Cholesterol HPI Details Patient is a 57-year-old male who presents today for a routine follow-up. Patient of Dr. Hurtado. Medical history significant for hypertension, hypercholesterolemia, RAGHAV-on CPAP, obesity, CAD, BPH, diabetes type 2 anxiety shortness of breath - PFTs 08/2021 which showed severe restrictive lung disease-patient reports that he was borrowing his family member albuterol inhaler which is helping him - reports intermittent shortness of breath with activity -denies smoking-denies COPD or asthma; LFT elevation-has order for abdominal ultrasound and blood work. Recent blood work results reviewed with the patient. He is also followed by Urology and Cardiology. No chest pain today. [facility] Medical History BPH (benign prostatic hyperplasia) Coronary artery disease Erectile dysfunction Hypercholesterolemia Hypertension Impaired glucose tolerance Insomnia Morbid obesity Nephrolithiasis Obstructive sleep apnea PVCs (premature ventricular contractions) Surgical History History of carpal tunnel surgery of left wrist History of colonoscopy History of prostate biopsy Family History Father S/P CABG x 1 Prostate cancer Diabetes Hypertension Mother Diabetes Hypertension Sister Hypertension Social History (Reviewed 11/03/22 @ 11:37 by EDWIN Costa Housing: House Alcohol intake: never Patient Tobacco Use Status: Never used Tobacco e-Cigarette/Vaping Use: Never Used Second Hand Smoke Exposure: No service: No Current occupational status: employed Cognitive needs: No Hearing needs: No Vision needs: No Questionnaire Thrive Questionnaire Date Thrive assessed: 07/15/22 AUDIT C Alcohol Use Questionnaire (AUDIT-C) 1. How often do you have a drink containing alcohol?: Never 2. How many drinks containing alcohol do you have on a typical day when you are drinking?: 1 or 2 (0) 3. How often do you have six or more drinks on one occasion?: Never Total Score: 0 Score Reviewed/Action Taken: No JM-7 AMB Questionnaire JM-7 Date JM - 7 assessed: 07/15/22 Source: Developed by Drs. Brian Lund, Lyssa Gill, Reji Nunez and colleagues, with an educational kathryn from [employer]. Review of Systems Const Denies body aches, Denies chills, Denies fever(s) and Denies headache(s) Eyes Denies change in vision ENT Denies dizziness, Denies otalgia, Denies headache(s), Denies nasal discharge, Denies sinus pain and Denies sore throat Card Denies chest pain, Denies edema, Denies lightheadedness, Denies dyspnea and Reports dyspnea on exertion Resp Denies cough, Denies dyspnea, Reports dyspnea on exertion and Denies wheezing GI Denies abdominal pain Denies dysuria Musc Denies myalgias Skin/Breast Denies rash Neuro Denies dizziness and Denies headache(s) Aller/Immun Denies wheezing Physical exam (Primary Care) Vital Signs: Last Vital Signs Pulse 68 11/03/22 11:25 BP 112/70 11/03/22 11:25 Pulse Ox 95 11/03/22 11:25 Oxygen Delivery Method Room Air 11/03/22 11:25 BMI result Body Mass Index 50.1 Tobacco/Smoking Status: Tobacco use Status Tobacco use date assessed 11/03/22 11/03/22 11:29 Patient Tobacco Use Status Never used Tobacco 11/03/22 11:29 e-Cigarette/Vaping Use Never Used 11/03/22 11:29 Thrive Assessment: Date of Thrive Assessment Date Thrive assessed 07/15/22 11/03/22 11:29 Const General: cooperative and no acute distress Orientation/consciousness: patient oriented x3 HENMT Head: Yes normocephalic and Yes atraumatic Mouth: oropharynx normal and moist mucous membranes Throat: Yes posterior oropharynx normal Eyes General: appearance normal, both eyes and all related structures Neck Neck: Yes normal visual inspection, Yes full ROM and Yes no lymphadenopathy Resp Effort & Inspection: normal respiratory effort and able to speak in complete sentences Auscultation: clear to auscultation bilaterally, no crackles, no rales, no rhonchi and no wheezes Cardio Rate: regular rate Rhythm: regular rhythm Heart sounds: S1 normal heart sound present, S2 normal heart sound present and no murmurs GI Auscultation: normal bowel sounds Skin General skin exam: no rashes or lesions noted Neuro General: patient oriented x3 Gait exam (Neuro): Normal gait present Extrem General: Yes full ROM and No edema Assessment and Plan Assessment & Plan (1) SOB (shortness of breath): Comment: PFT August 2021 no obstructivebut severe restrictive lung disease Code(s): R06.02 - Shortness of breath Plan: Will provide patient with albuterol inhaler p.r.n. Encouraged weight loss (2) Type 2 diabetes mellitus with hyperglycemia: Comment: Target Code(s): E11.65 - Type 2 diabetes mellitus with hyperglycemia Plan: A1c 5.9 10/2022 Continue Jardiance Low-carbohydrate diet and weight loss Patient will call his eye doctor for diabetic eye exam (3) Morbid obesity: Code(s): E66.01 - Morbid (severe) obesity due to excess calories Plan: Encouraged healthy food choices and exercise as tolerated Patient would like to hold off on weight management referral at this time (4) Hypercholesterolemia: Code(s): E78.00 - Pure hypercholesterolemia, unspecified Plan: LDL 61 10/2022 Continue Zetia and rosuvastatin Low-cholesterol diet and weight loss (5) Hypertension: Code(s): I10 - Essential (primary) hypertension Qualifiers: Hypertension type: essential hypertension Qualified Code(s): I10 - Essential (primary) hypertension Plan: Goal BP equal or less than 140/90 Continue amlodipine and valsartan Low-sodium diet and weight loss Plan Keep appointment with PCP as scheduled or follow-up sooner as needed Orders: Orders Microalbumin, Random (w Creat) Today E11.65 - Type 2 diabetes mellitus with hyperglycemia Medications: New albuterol sulfate 90 mcg/actuation (Ventolin HFA) 2 puffs inhalation Q4-6H PRN 8.5 grams 0RF shortness of breath or wheezing R06.02 - Shortness of breath Refilled empagliflozin (Jardiance) 10 mg PO DAILY 30 tabs 3RF E11.65 - Type 2 diabetes mellitus with hyperglycemia rosuvastatin 40 mg PO DAILY 90 days 90 tabs 1RF E78.00 - Pure hypercholesterolemia, unspecified Coding Level of Care Code Est Pt Level 4 (37380) Diagnoses SOB (shortness of breath) R06.02 Type 2 diabetes mellitus with hyperglycemia E11.65 Morbid obesity E66.01 Hypercholesterolemia E78.00 Hypertension I10 Hypertension type: essential hypertension
== END 2022-11-03 11:49 | disposition home or self-care (01) ==
PROVIDERS: PCP Internal Medicine; Visit Provider Nurse Practitioner Family
DX: E11.65 Type 2 diabetes mellitus with hyperglycemia (principal); E66.01 Morbid (severe) obesity due to excess calories; Z68.43 Body mass index [BMI] 50.0-59.9, adult; I10 Essential (primary) hypertension; R06.02 Shortness of breath; E78.00 Pure hypercholesterolemia, unspecified
CPT/HCPCS: 99214

== ENCOUNTER 2022-11-18 08:08 | Outpatient (REF) | payer OTHER, SELFPAY ==
--- NOTE | ~2022-11-18 | US_ITS ---
EXAMINATION: US ABDOMEN COMPLETE CLINICAL INFORMATION: Abnormal blood chemistry. COMPARISON: Renal ultrasound 11/02/2022. TECHNIQUE: Real-time imaging of the abdominal viscera. Limited visualization due to bowel gas and body habitus. FINDINGS: PANCREAS: Limited visualization of pancreatic tail and head. Imaged portion of pancreatic body is unremarkable. ABDOMINAL AORTA: Limited visualization. Imaged portion of abdominal aorta is nonaneurysmal. INFERIOR VENA CAVA: Visualized portions are normal. LIVER: Diffuse increase in echogenicity of the liver is characteristic of primary hepatocellular disease, possibly due to hepatic steatosis and further limits visualization. GALLBLADDER: No gallstones. Borderline gallbladder wall thickening of 0.33 cm. COMMON BILE DUCT: Normal in caliber measuring 0.4 cm in diameter. RIGHT KIDNEY: No hydronephrosis. Scattered tiny echogenic foci, possibly representing nonobstructive calculi versus artifact. 1.7 x 1.8 x 1.8 cm right mid to lower pole cyst redemonstrated with benign features. There is no indication for followup imaging. Limited visualization. The kidney measures 12.2 cm in maximum dimension. LEFT KIDNEY: No hydronephrosis. 0.8 cm midpole and 0.3 cm lower pole calculi. Limited visualization. 1.3 x 1.0 x 1.2 cm exophytic left upper pole cyst. The kidney measures 13.1 cm in maximum dimension. SPLEEN: 2.1 x 1.9 x 2.0 cm soft tissue mass adjacent to the spleen is characteristic of a splenule. CT scan of 11/07/2019 demonstrated splenule. The spleen measures 11.2 cm in maximum dimension. FREE FLUID: None. US/US abdomen complete IMPRESSION: 1. Diffuse increase in echogenicity of the liver is characteristic of primary hepatocellular disease, possibly due to hepatic steatosis and further limits visualization. 2. Possible tiny scattered right renal calculi versus artifact. No hydronephrosis. 3. Left renal 0.8 cm midpole and 0.3 cm lower pole calculi. No hydronephrosis.
[2022-11-18 09:01] LABS: Immature Retic Fraction 14.2 % (2.3-13.4); Retic HGB Equivalent 32.7 pg (30.0-35.0); Reticulocyte Percent 1.6 % (0.5-1.8); Reticulocytes Absolute 0.087 X10*6/uL (0.026-0.095)
[2022-11-18 09:44] LABS: Alanine Aminotransferase 30 U/L (0-40); Albumin Level 3.8 g/dL (3.5-5.0); Alkaline Phosphatase 76 U/L (39-117); Aspartate Amino Transferase 26 U/L (5-37); Bilirubin Direct 0.2 mg/dL (0.0-0.5); Bilirubin Total 0.4 mg/dL (0.0-1.0); Ferritin 86 ng/mL (20-250); Iron 43 mcg/dL (45-160); Percent Iron Saturation 20 % (15-50); Total Iron Binding Capacity 215 mcg/dL (228-428); Total Protein 7.4 g/dL (6.5-8.0); Unsaturated Iron Binding 172 ug/dL
[2022-11-18 09:52] LABS: HBS Num1 0.16 mIU/mL (0-7.99); HBc Num1 0.14 S/CO (0.00-0.79); HBsAGNum1 0.34 S/CO (0.00-0.99); Hepatitis B Core Antibody Nonreactive (Nonreactive); Hepatitis B Surface Antigen Negative (Negative); ~HepC Num1 0.13 S/CO (0.00-0.79); ~Hepatitis B Surface Antibody NONREACTIVE (Nonreactive); ~Hepatitis C Antibody Nonreactive (Nonreactive)
[2022-11-18 10:26] LABS: Microalbum/Creatinine Ratio Ur 85.8 ug/mg cr
[2022-11-20 17:19] LABS: Prot Elec - Albumin 3.1 g/dL (3.8-4.8); Prot Elec - Alpha1 0.4 g/dL (0.2-0.3); Prot Elec - Alpha2 1.1 g/dL (0.5-0.9); Prot Elec - Beta 1 0.4 g/dL (0.4-0.6); Prot Elec - Beta 2 0.5 g/dL (0.2-0.5); Prot Elec - Gamma 1.4 g/dL (0.8-1.7); Prot Elec - Total Protein 6.9 g/dL (6.1-8.1)
== END 2022-11-18 08:09 | disposition home or self-care (01) ==
LOC: HO.LAB 08:08
PROVIDERS: Nurse Practitioner Family; PCP Internal Medicine; Visit Provider Internal Medicine
DX: E11.65 Type 2 diabetes mellitus with hyperglycemia (principal); R79.89 Other specified abnormal findings of blood chemistry
CPT/HCPCS: 36415; 76700; 80076; 82043; 82728; 83540; 84165; 85045; 86704; 86706; 86803; 87340

== ENCOUNTER 2022-11-22 10:32 | Outpatient (AMB) | payer OTHER, SELFPAY ==
--- NOTE | 2022-11-22 10:37 | MHC.OFFVIS ---
Intake Vital Signs 11/22/22 10:39 Height 5 ft 11 in Weight 354 lb 15.108 oz BMI 49.5 BP 124/80 Blood Pressure Location Lt brachial Position Sitting Pulse 65 Intake Visit Reasons: 2 years followup w/ekg dx: pvc's Intake Note: 2 year follow-up with ekg dx pvc's has them sometimes but not much Athletic Agent Required: No Allergies metformin Adverse Reaction (Intermediate, Verified 11/03/22 11:35) Diarrhea Medication List - Last Reconciled 11/22/22 by Corby Torres MD albuterol sulfate 90 mcg/actuation (Ventolin HFA) 2 puffs inhalation Q4-6H PRN amlodipine 5 mg PO DAILY aspirin (Adult Aspirin Regimen) 81 mg PO DAILY [CPAP As directed] empagliflozin (Jardiance) 10 mg PO DAILY ezetimibe (Zetia) 10 mg PO DAILY finasteride 5 mg PO DAILY 90 days rosuvastatin 40 mg PO DAILY 90 days tamsulosin 0.4 mg PO DAILY 90 days valsartan 320 mg PO DAILY HPI HPI Comments History of Present Illness Details Michael comes for follow-up. Patient says over the last few years he has had worsening shortness of breath exertion climbing a flight of stairs and has to stop in between. No orthopnea, PND, leg edema. Denies any exertional chest pain. He says diabetes under better control with hemoglobin A1c around 6.7. Blood pressure is well controlled. Uses CPAP regularly. He wants to consider bariatric intervention again at this point in time. He also continues to intermittent episodes of palpitations similar to his PVCs but these are not bothersome to him. He says he is limited in exercise due to his bilateral knee arthritis. [facility] Medical History BPH (benign prostatic hyperplasia) Coronary artery disease Erectile dysfunction Hypercholesterolemia Hypertension Impaired glucose tolerance Insomnia Morbid obesity Nephrolithiasis Obstructive sleep apnea PVCs (premature ventricular contractions) Surgical History History of carpal tunnel surgery of left wrist History of colonoscopy History of prostate biopsy Family History Father S/P CABG x 1 Prostate cancer Diabetes Hypertension Mother Diabetes Hypertension Sister Hypertension Social History Housing: House Alcohol intake: never Patient Tobacco Use Status: Never used Tobacco e-Cigarette/Vaping Use: Never Used Second Hand Smoke Exposure: No service: No Current occupational status: employed Cognitive needs: No Hearing needs: No Vision needs: No Review of Systems Const Denies chills, Denies fatigue, Denies fever(s), Denies frequent falls, Denies weakness, Denies weight gain and Denies weight loss ENT Denies dizziness Card Denies chest pain, Denies leg edema, Denies lightheadedness, Denies palpitations, Denies dyspnea, Denies dyspnea on exertion, Denies orthopnea and Denies other (loss of consciousness) Resp Denies cough, Denies dyspnea and Denies dyspnea on exertion GI Denies hematochezia and Denies change in stool character Musc Denies abnormal gait, Denies muscle weakness, Denies numbness, Denies radiating pain into limb and Denies tingling Neuro Denies abnormal gait, Denies dizziness, Denies frequent falls, Denies numbness, Denies tingling and Denies weakness Endo Denies fatigue and Denies palpitations Physical Exam Vital Signs: Last Vital Signs Pulse 65 11/22/22 10:39 BP 124/80 11/22/22 10:39 BMI result Body Mass Index 49.5 Const General: cooperative, comfortable, no acute distress, alert and awake Nutritional Appearance: obese morbidly obese Orientation/consciousness: patient oriented x3 Limitations: no limitations Neck Neck: Yes trachea midline, Yes supple and Yes no JVD Resp Effort & Inspection: normal respiratory effort Auscultation: clear to auscultation bilaterally Cardio Jugular venous distension: no JVD Palpation: normal PMI Rate: regular rate Rhythm: regular rhythm Heart sounds: S1 normal heart sound present and S2 normal heart sound present GI Inspection: Yes obesity Auscultation: normal bowel sounds Skin General skin exam: no rashes or lesions noted Neuro General: patient oriented x3 and no focal motor deficits Extrem General: Yes no clubbing, cyanosis or edema Office Procedures EKG Details: EKG shows normal sinus rhythm with normal EKG [id number], Complete Assessment & Plan Assessment & Plan (1) PVCs (premature ventricular contractions): Code(s): I49.3 - Ventricular premature depolarization Plan: Patient with prior isolated PVCs without any increasing symptoms but still symptomatic. No pharmacotherapy is indicated. Workup for structural heart disease as below. Avoidance of stimulants was discussed. (2) SOB (shortness of breath): Comment: PFT August 2021 no obstructivebut severe restrictive lung disease Code(s): R06.02 - Shortness of breath Plan: Shortness of breath exertion which is worsening. In this patient with multiple risk factors, need to rule out structural heart disease. Will obtain a vasodilating myocardial perfusion imaging a patient cannot exercise on treadmill and echocardiogram to assess for LV systolic and diastolic function to evaluate for hypertensive heart disease. Currently his blood pressure is well optimized. Diabetes under your care. Goal blood pressure less than 130/84. Goal hemoglobin A1c less than 7%. Goal LDL less than 70 mg/dL. I think he will benefit from aggressive weight loss program. Have referred him to bariatric surgery for the same. Continue CPAP therapy. Will follow up in 2 years, sooner p.r.n.. Thank you for allowing me to partake in his care Orders: Orders CA lexiscan stress w katalina Today R06.02 - Shortness of breath CA echo transthorac w con Today R06.02 - Shortness of breath Referrals Bariatric Surgery Referral E66.01 - Morbid (severe) obesity due to excess calories Coding Level of Care Code Est Pt Level 4 (78495) Diagnoses PVCs (premature ventricular contractions) I49.3 SOB (shortness of breath) R06.02 CPT Codes EKG - CPT: 88813-[id number], Complete ([id number])
[2022-11-22 10:39] VITALS: BP 124/80; PULSE 65; BMI 49.5
== END 2022-11-22 10:55 | disposition home or self-care (01) ==
PROVIDERS: Visit Provider Internal Medicine Cardiovascular Disease
DX: I49.3 Ventricular premature depolarization (principal); R06.02 Shortness of breath
CPT/HCPCS: 93010; 99214

== ENCOUNTER → 2022-11-22 10:32 | Outpatient (BNVA) | payer OTHER, SELFPAY | PROVIDERS: Visit Provider Internal Medicine Cardiovascular Disease | DX: I49.3 Ventricular premature depolarization (principal); R06.02 Shortness of breath | CPT/HCPCS: 93005; 99212 ==

== ENCOUNTER → 2023-01-17 08:48 | Outpatient (REF) | payer OTHER, SELFPAY ==
--- NOTE | 2023-01-17 08:51 | CA_ITS ---
Transthoracic Echocardiogram Patient (Last, First, Middle): Michael Meadows R Gender: Male Date of : 1965 Age: 57 Procedure Date: 01/17/2023 Procedure Type: Transthoracic Echocardiogram Location: OP Height: 182.88 cm Weight: 163.3 kg BSA: 2.73 m2 Heart Rate: 67 bpm BP: 125 / 80 mmHg Delimer: MELVIN Referring MD: Corby Torres MD Insulation Applicator: Corby Torres MD Symptoms: R06.02 - Shortness of breath Study Quality: Fair w Contrast ECG Rhythm: Sinus Conclusions: - 1. Normal LV ejection fraction of 60 65% with possible wall motion abnormality in the basal inferior and inferoseptal wall, could be due to off axis views 2. Normal cardiac valvular Dopplers 3. Mildly dilated ascending aorta at 3.7 cm 4. No gross pericardial effusion Findings Procedure Information Contrast agent, definity, is being given per protocol without apparent complications. Left Ventricle Normal left ventricular size, thickness, and systolic function. The visually estimated ejection fraction is between 60-65%. Spectral Doppler is indicative of a normal filling pattern. Wall Motion Rest Echo Findings The basal inferior and basal inferoseptal segments are hypokinetic. All other scored wall segments showed normal motion. Right Ventricle Normal right ventricular cavity size and systolic function. Atria The left atrium is normal in size. Interatrial shunt cannot be excluded. The right atrium is normal in size. Aortic Valve The aortic valve structure and function is likely normal. There is no aortic valve stenosis. There is no aortic valve regurgitation. Mitral Valve Likely normal mitral valve structure and function. There is trace mitral valve regurgitation. There is no mitral valve stenosis. Pulmonic Valve The pulmonic valve was not well visualized. Tricuspid Valve The tricuspid valve was not well visualized. Tricuspid regurgitation envelope is inadequate for calculation of right ventricular systolic pressure. Normal right atrial pressure. Great Vessels The pulmonary artery was not well visualized. There is mild dilatation of the ascending aorta measuring 3.70 cm. Venous The inferior vena cava is normal in size and collapses greater than 50% with inspiration. Pericardium/Pleural There is no evidence of pericardial effusion. Measurements 2D Linear Measurements IVSd: 1.27 0.6-0.9/0.6-1.0 cm LVIDd: 5.41 3.9-5.3/4.2-5.9 cm LVIDd Index: 1.98 2.4-3.2/2.2-3.1 cm/m2 LVIDs: 3.73 2.0-3.6 cm LVPWd: 1.00 0.7-1.1 cm LA Diam: 4.20 2.7-3.8/3.0-4.0 cm LAIDs Index: 1.54 1.5-2.3 cm/m2 LV Mass: 305.51 67-162/88-224 g LV Mass Index: 111.91 43-95/49-115 g/m2 LVOT Diam: 2.10 3.0+(-)1.3 cm 2D Systolic Function EF 4C: 55.90 >55% EF 2C: 67.10 >55% EF BiP: 61.00 >55% Mitral Valve MV Pk E: 0.98 MV PK A: 0.65 MV Decel Time: 172.00 E/A: 1.50 E'Lateral: 15.40 E'Medial: 8.92 E/E' Med: 11.00 E/E' Lat: 6.40 PHT: 50.00 MVA PHT: 4.40 Decel [place]: 5.70 Aortic Valve AoV Pk Guillermo: 1.41 AoV Mn Guillermo: 1.09 AoV VTI: 0.31 AoV Pk Grad: 8.00 Aov Mn Grad: 5.00 MAIKEL Cont.VTI: 2.68 LVOT LVOT Pk Guillermo: 1.11 LVOT Mn Guillermo: 0.80 LVOT VTI: 0.24 LVOT Pk Grad: 5.00 LVOT Mn Grad: 3.00 LVOT Diam: 2.10 LVOT Area: 3.46 Diastolic Function MV Pk E: 0.98 MV Pk A: 0.65 E/A: 1.50 E'Medial: 8.92 E/E' Med: 11.00 E' Laterial: 15.40 E/E' Lat: 6.40 Right Ventricle TAPSE (mm): 19.30 TVS' Guillermo: 11.40 Tricuspid Valve RA Press: 3.00 Great Vessels Aorta Sinus of Valsalva: 3.80 2.0-3.5 cm Ao Asc: 3.70 2.1-3.4 cm Pulmonary Valve PV Pk Guillermo: 1.14 Peak PV Grad: 5.00 Updated in Other Vendor System with Status of Final Corby Torres MD electronically signed on 01/18/2023 2:36:08 PM with status of Final
== END ==
LOC: HO.CARD 08:48
PROVIDERS: PCP Internal Medicine; Visit Provider Internal Medicine Cardiovascular Disease
DX: R06.02 Shortness of breath (principal)
CPT/HCPCS: 93306; Q9957

== ENCOUNTER → 2023-01-17 08:51 | Outpatient (BNV) | payer OTHER, SELFPAY | PROVIDERS: PCP Internal Medicine; Visit Provider Internal Medicine Cardiovascular Disease | DX: R06.02 Shortness of breath (principal) | CPT/HCPCS: 93306 ==

== ENCOUNTER 2023-01-18 00:29 | Emergency (ER) | payer OTHER, SELFPAY ==
--- NOTE | ~2023-01-18 | CT_ITS ---
EXAMINATION: CT ABDOMEN AND PELVIS WITHOUT CONTRAST CLINICAL INFORMATION: Left flank pain, hematuria, rule out kidney stone COMPARISON: None available. TECHNIQUE: Multidetector volumetric imaging was performed from the superior aspect of the liver through the pubic symphysis. Sagittal and coronal reformatted images were obtained on the technologist's workstation. This CT examination was performed using dose optimization techniques as appropriate, variously including the following: *Automated exposure control *Adjustment of mA and/or kV according to patient size (this includes techniques or standardized protocols for targeted exams where dose is matched to indication/reason for exam; i.e. extremities or head) *Use of iterative reconstruction technique DLP: 1598 mGy-cm FINDINGS: LUNG BASES: Calcified granuloma in the right lower lobe. LIVER, GALLBLADDER, AND BILIARY TREE: The liver is normal in size, shape, and attenuation. No focal hepatic lesion or biliary ductal dilatation is identified on this noncontrast exam. The gallbladder is unremarkable with no evidence of radiopaque gallstones, gallbladder wall thickening, or obvious pericholecystic inflammatory changes. PANCREAS: Unremarkable. SPLEEN: Unremarkable. ADRENAL GLANDS: Unremarkable. KIDNEYS AND URETERS: There is a proximal left ureteral calculus measuring 5 mm without significant hydronephrosis. No right-sided hydronephrosis or calculus. Small bilateral renal cysts are noted; no follow-up recommended. BLADDER: Unremarkable. GASTROINTESTINAL TRACT: No evidence of bowel obstruction or significant wall thickening. The appendix is unremarkable. No free fluid or free air is seen. ABDOMINAL WALL: Fat-containing inguinal hernias, right greater than left. LYMPH NODES: Normal. VASCULAR: Trace atherosclerotic calcification. PELVIC VISCERA: Enlarged prostate gland measures 6.1 cm in transverse dimension. OSSEOUS STRUCTURES: Unremarkable. CT/CT abdomen pelvis wo IV con IMPRESSION: 1. Proximal left ureteral calculus measuring 5 mm without significant hydronephrosis. 2. Enlarged prostate gland.
[2023-01-18 00:40] VITALS: BP 143/74; PULSE 65; RESP 18; TEMP 36.3; O2SAT 95; BMI 50.5
[2023-01-18 01:30] LABS: Appearance Urine Cloudy; Color Urine Yellow; Glucose Urine UA >=1000 mg/dL (Negative); Leukocyte Esterase Urine Trace (Negative); Nitrite Urine Negative (Negative); PH 5.5 (5.0-9.0); Specific Gravity - Urine >= 1.030 (1.005-1.025); UMIC TRIGGER UACC YES; Urine Blood Large (3+) (Negative); Urine Ketones Negative (Negative); Urine Protein 100 (2+) mg/dL (Neg-Trace)
[2023-01-18 01:33] LABS: Bacteria Urine None Seen (None Seen); Hyaline Casts Urine 0-2 /LPF (0-2); RBC Urine >20 /HPF (0-2); Squamous Epithelial Cell Urine 0-2 /HPF (0-2); UACC Culture Trigger YES
[2023-01-18 01:45] LABS: Alanine Aminotransferase 33 U/L (0-40); Albumin Level 3.6 g/dL (3.5-5.0); Alkaline Phosphatase 87 U/L (39-117); Aspartate Amino Transferase 41 U/L (5-37); Bilirubin Direct < 0.2 mg/dL (0.0-0.5); Bilirubin Total 0.2 mg/dL (0.0-1.0); Blood Urea Nitrogen 17 mg/dL (9-16); Calcium 9.2 mg/dL (8.4-10.2); Carbon Dioxide 22 mmol/L (22-29); Chloride 108 mmol/L (96-108); Creatinine Clr Calc Pharmacy 108.2; Estimated Glomerular Filt Rate > 60; Glucose Random 124 mg/dL (60-115); Lipase 21 U/L (8-78); Potassium 4.9 mmol/L (3.3-5.1); Sodium 138 mmol/L (135-145); Total Protein 7.8 g/dL (6.5-8.0)
[2023-01-18 02:12] LABS: Anion Gap 11 (12-20)
--- NOTE | 2023-01-18 02:30 | PC.NURSE ---
Pt ambulated into room with a steady gait, pt ambulated to bathroom, urine/blood collected and sent to lab. IV placed in RAC, meds given per JUN. Pt resting quietly with no apparent distress.
[2023-01-18 02:36] LABS: Basophils Absolute Auto 0.1 X10*3/uL (0.0-0.2); Basophils Percent Auto 0.6 % (0-2); Eosinophils Absolute Auto 0.2 X10*3/uL (0.0-0.4); Eosinophils Percent Auto 1.6 % (0-4); Hematocrit 46.6 % (42.0-52.0); Hemoglobin 14.8 g/dl (14.0-18.0); Imm Gran Abs Auto 0.02 X10*3/uL (0.00-0.03); Imm Gran Pct Auto 0.2 % (0.0-0.4); Lymphocytes Absolute Auto 2.3 X10*3/uL (1.2-4.9); Lymphocytes Percent Auto 22.1 % (20-40); MANUAL DIFF FLAG NO; Mean Corpuscular HGB Conc 31.8 g/dl (31.0-36.0); Monocytes Percent Auto 9.3 % (2-11); Neutrophils Absolute Auto 6.9 x10*3/uL (2.0-8.3); Neutrophils Percent Auto 66.2 % (45-73); Platelet Count 239 X10*3/uL (160-400); Red Blood Count 5.48 X10*6/uL (4.60-5.80); Red Cell Distribution Width 15.7 % (11.0-16.0); White Blood Count 10.4 X10*3/uL (4.8-10.8)
--- NOTE | 2023-01-18 02:38 | ED_ITS ---
HPI - Abdominal Pain General Chief Complaint: Abdominal Pain Stated Complaint: Flank pain/Blood in Urine Time Seen by Provider: 01/18/23 02:29 Source: patient Mode of arrival: ambulatory Limitations: no limitations History of Present Illness HPI narrative: 57-year-old male who presents emergency department for evaluation of left flank pain x2 days and hematuria which occurred prior to coming to the emergency department. The patient states that he has had a gradual onset of left flank pain over the past 2 days. He states the pain is been constant, he has a difficult time describing the sensation he states the pain is 7/10 at its worst. He states he does feel bloated as well pain the patient states that prior to coming to emergency department he noticed bloody urine. Patient states he has had similar pain in the past when he has had a kidney stone. He denied fever, chills, nausea, vomiting, diarrhea, dysuria or frequency. Related Data Home Medications Medication Instructions Recorded Confirmed aspirin 81 mg tablet,delayed 81 mg PO DAILY 03/18/20 11/22/22 release (Adult Aspirin Regimen) Previous Rx's Medication Instructions Recorded CPAP #1 ea 01/15/21 valsartan 320 mg tablet 320 mg PO DAILY #90 tabs 06/28/22 finasteride 5 mg tablet 5 mg PO DAILY 90 days #90 tabs 07/05/22 ezetimibe 10 mg tablet (Zetia) 10 mg PO DAILY #30 tabs 07/15/22 tamsulosin 0.4 mg capsule 0.4 mg PO DAILY 90 days #90 caps 09/17/22 empagliflozin 10 mg tablet 10 mg PO DAILY #30 tabs 11/03/22 (Jardiance) rosuvastatin 40 mg tablet 40 mg PO DAILY 90 days #90 tabs 11/03/22 albuterol sulfate 90 mcg/actuation 2 puff inhalation Q4-6H PRN 12/27/22 aerosol inhaler (Ventolin HFA) shortness of breath or wheezing #8.5 grams amlodipine 5 mg tablet 5 mg PO DAILY #90 tabs 01/06/23 oxycodone 5 mg tablet 5 mg PO Q6H PRN pain #14 tabs 01/18/23 Allergies Allergy/AdvReac Type Severity Reaction Status Date / Time metformin AdvReac Intermediate Diarrhea Verified 11/03/22 11:35 Review of Systems Review of Systems Yes all other systems are reviewed and are negative PMFSH Past Medical History REPLACED BY [facility] Narrative: Social history: He denies tobacco, alcohol and drug use. Medical History PVCs (premature ventricular contractions) Morbid obesity Impaired glucose tolerance Erectile dysfunction Nephrolithiasis Insomnia Coronary artery disease Obstructive sleep apnea BPH (benign prostatic hyperplasia) Hypercholesterolemia Hypertension Surgical History History of prostate biopsy History of colonoscopy History of carpal tunnel surgery of left wrist Family History Family History Father S/P CABG x 1 Prostate cancer Diabetes Hypertension Mother Diabetes Hypertension Sister Hypertension Social History Social History Housing: House Alcohol intake: never Patient Tobacco Use Status: Never used Tobacco Smoked in Last 30 Days: No e-Cigarette/Vaping Use: Never Used Second Hand Smoke Exposure: No Use of substances other than those prescribed or required for medical reasons: No Advance Directives: No Advance Directives Information Provided: No service: No Current occupational status: employed Cognitive needs: No Hearing needs: No Vision needs: No Physical Exam ED Vital Signs: Vital Signs - 24 hr 01/18/23 00:40 01/18/23 02:47 Temperature 97.3 F Pulse Rate 65 60 Respiratory Rate 18 20 Blood Pressure 143/74 H 135/77 Pulse Oximetry 95 96 Oxygen Delivery Method Room Air Room Air BMI result Body Mass Index 50.5 Vital signs revealed an elevated blood pressure otherwise unremarkable Exam: General: Awake, alert in no distress, elevated BMI 50.5. Head: Normocephalic, atraumatic EENT: PERRL, Lids normal, sclera normal, conjunctiva normal, nose normal , ears normal, throat without erythema or exudates Neck: Supple, no adenopathy, trachea midline and nontender Lung: breath sounds symmetric, no wheezing, rales or rhonchi Chest: symmetric movement, nontender Heart: regular rate and rhythm, normal S1, S2 no murmurs or rubs Abdomen: soft, obese, non-tender, nondistended, normal bowel sounds Back: no vertebral tenderness, no CVAT Extremities: no deformities, moves all extremities symmetrically Skin: no rashes, no lesion, normal color and warmth Neuro: Awake, alert, oriented, normal speech, cranial nerves intact, moves all extremities symmetrically Psych: Pleasant, cooperative Medical Decision Making Medical Decision Making MDM Narrative: 57-year-old male with history of diabetes mellitus, hypertension hyperlipidemia, obstructive sleep apnea, kidney stone who presents emergency department for evaluation left flank pain x2 days and hematuria which started prior to coming to emergency department . Vital signs did reveal an elevated blood pressure otherwise unremarkable. Abdominal exam was unremarkable. Following evaluation was ordered: CBC, CMP, lipase urinalysis, CT scan abdomen pelvis IV contrast. 0243: Patient's laboratory evaluation revealed normal kidney function with a BUN of 17 creatinine 1.21. Patient's urinalysis was positive for blood microscopic revealed greater than 20 RBCs, 6-10 WBCs and no bacteria. 0450: CT scan of the abdomen pelvis without IV contrast revealed a 5 mm proximal ureteral stone with no hydronephrosis, this explains the patient's pain Patient is already taking tamsulosin and finasteride He was advised to take Tylenol and ibuprofen for pain not relieved by these medications she was prescribed oxycodone He was advised to strain his urine and to follow-up with his urologist, Dr. Aguirre. He was given printed and verbal instructions and discharged home. Differential Diagnosis Differential Diagnoses: The differential diagnosis associated with the presentation includes Differential diagnosis includes was not limited to renal colic, ureteral colic, ureteral stone, urinary tract infection, pyelonephritis Admission/Observation Consideration of admission/observation: Escalation of care including admission/observation considered Lab Data MDM Lab Attestation statement: I reviewed the patient's lab results. My interpretation patient's laboratory evaluation as follows: Glucose elevated 124. BUN creatinine were normal. Urinalysis revealed 3+ blood. Microscopic revealed greater than 20 RBCs, 6-10 WBCs and no bacteria-this is consistent with hematuria without infection. 01/18/23 02:30 01/18/23 01:54 Labs: Lab Results 01/18/23 01/18/23 01/18/23 Range/Units 01:12 01:54 02:30 WBC 10.4 (4.8-10.8) X10*3/uL RBC 5.48 (4.60-5.80) X10*6/uL Hgb 14.8 (14.0-18.0) g/dl Hct 46.6 (42.0-52.0) % MCV 85.0 (80.0-98.0) fL MCH 27.0 (27.0-33.0) pg MCHC 31.8 (31.0-36.0) g/dl RDW 15.7 (11.0-16.0) % Plt Count 239 (160-400) X10*3/uL MPV 9.0 L (9.4-12.4) fL Immature Gran % (Auto) 0.2 (0.0-0.4) % Neut % (Auto) 66.2 (45-73) % Lymph % (Auto) 22.1 (20-40) % [place] % (Auto) 9.3 (2-11) % Eos % (Auto) 1.6 (0-4) % Baso % (Auto) 0.6 (0-2) % Lymph # (Auto) 2.3 (1.2-4.9) X10*3/uL [place] # (Auto) 1.0 (0.1-1.2) X10*3/uL Eos # (Auto) 0.2 (0.0-0.4) X10*3/uL Baso # (Auto) 0.1 (0.0-0.2) X10*3/uL Abs Immat Gran (auto) 0.02 (0.00-0.03) X10*3/uL Absolute Neuts (auto) 6.9 (2.0-8.3) x10*3/uL Absolute Nucleated RBC 0.000 (0.0-0.012) X10*3/uL Nucleated RBC % (auto) 0.0 (0.0-0.2) /100WBC Sodium 138 (135-145) mmol/L Potassium 4.9 (3.3-5.1) mmol/L Chloride 108 (96-108) mmol/L Carbon Dioxide 22 (22-29) mmol/L Anion Gap 11 L (12-20) BUN 17 H (9-16) mg/dL Creatinine 1.21 (0.5-1.4) mg/dL Estim Creat Clear Calc 108.2 Estimated GFR > 60 Random Glucose 124 H (60-115) mg/dL Calcium 9.2 (8.4-10.2) mg/dL Total Bilirubin 0.2 (0.0-1.0) mg/dL Direct Bilirubin < 0.2 (0.0-0.5) mg/dL AST 41 H (5-37) U/L ALT 33 (0-40) U/L Alkaline Phosphatase 87 (39-117) U/L Total Protein 7.8 (6.5-8.0) g/dL Albumin 3.6 (3.5-5.0) g/dL Lipase 21 (8-78) U/L Hold Green Top See Note Urine Color Yellow Urine Appearance Cloudy Urine pH 5.5 (5.0-9.0) Ur Specific [place] >= 1.030 H (1.005-1.025) Urine Protein 100 (2+) H (Neg-Trace) mg/dL Urine Glucose (UA) >=1000 H (Negative) mg/dL Urine Ketones Negative (Negative) mg/dL Urine Blood Large (3+) H (Negative) Urine Nitrite Negative (Negative) Ur Leukocyte Esterase Trace H (Negative) Urine RBC >20 H (0-2) /HPF Urine WBC 6-10 H (0-5) /HPF Ur Squamous Epith Cells 0-2 (0-2) /HPF Urine Bacteria None Seen (None Seen) Hyaline Casts 0-2 (0-2) /LPF Radiology Impression Discussion of test interpretation with radiology: I have reviewed the radiologist's reading. Radiologist Impression: CT abdomen pelvis wo IV con IMPRESSION: 1. Proximal left ureteral calculus measuring 5 mm without significant hydronephrosis. 2. Enlarged prostate gland. Dictated By: Nguyễn Cast MD Prescription Management I considered prescription management with: Pain Medication Chronic Conditions Patient?s care impacted by: Diabetes and Hypertension Medications Administered Discontinued Medications Generic Name Dose Route Start Last Admin Trade Name Freq PRN Reason Stop Dose Admin Lactated Ringer's 1,000 mls @ 999 mls/hr 01/18/23 02:45 01/18/23 02:56 Lr IV 01/18/23 03:45 999 mls/hr .Q1H1M DORI Administration Ketorolac Tromethamine 15 mg 01/18/23 02:38 01/18/23 02:55 Ketorolac Tromethamine 15 Mg/Ml Vial IVPUSH 01/18/23 02:39 15 mg ONCE STA Administration Discharge Plan Discharge Clinical Impression: Left ureteral calculus, Ureter colic Patient Disposition: Home, Self-Care Instructions: How to Strain Your Urine (ED), Ureteral Stones (ED) Additional Instructions: Your blood work was unremarkable. Your urine was consistent with blood but there was no bacteria or evidence for an infection of your urine at this time. The CT scan of your abdomen pelvis with IV contrast revealed a 5 mm proximal ureteral stone( proximal means that the stone is closer to the kidney then to the bladder) Make sure you strain your urine, if you catch the stone bring it to Dr. Aguirre. Take ibuprofen 200 mg pills, 2 pills every 6 hours as needed for pain. Take Tylenol (acetaminophen) 500 mg pills, 2 pills every 6 hours as needed for pain. For pain not relieved by ibuprofen or Tylenol take oxycodone 5 mg pills, 1 pill every 4 hours as needed for pain. Do not drive or work while taking this medication since they can cause sleepiness. Oxycodone is a narcotic medication that can be addicting. If you are concerned about addiction you can ask the pharmacist for less pills or do not get this prescription filled. Follow-up with your urologist Dr. Aguirre today to make a follow-up appointment for re-evaluation of your 5 mm proximal ureteral stone. Please return to the emergency department if your symptoms get worse or if you develop any symptoms that are concerning to you. Prescriptions: New oxycodone 5 mg tablet 5 mg PO Q6H PRN (Reason: pain) Qty: 14 0RF Rx Instructions: Patient may request partial refill; Partial Fill upon patient request. No Action (DME) CPAP See Rx Instructions .Route .MEDSUPPLY Qty: 1 0RF Rx Instructions: As directed valsartan 320 mg tablet 320 mg PO DAILY Qty: 90 2RF finasteride 5 mg tablet 5 mg PO DAILY 90 Days Qty: 90 1RF tamsulosin 0.4 mg capsule 0.4 mg PO DAILY 90 Days Qty: 90 1RF albuterol sulfate [Ventolin HFA] 90 mcg/actuation HFA aerosol inhaler 2 puff inhalation Q4-6H PRN (Reason: shortness of breath or wheezing) Qty: 8.5 0RF amlodipine 5 mg tablet 5 mg PO DAILY Qty: 90 2RF aspirin [Adult Aspirin Regimen] 81 mg tablet,delayed release (DR/EC) 81 mg PO DAILY Jardiance 10 mg tablet 10 mg PO DAILY Qty: 30 3RF rosuvastatin 40 mg tablet 40 mg PO DAILY 90 Days Qty: 90 1RF ezetimibe [Zetia] 10 mg tablet 10 mg PO DAILY Qty: 30 5RF Referrals: Melchor Aguirre MD [Physician] - 1 week (Left 5 mm proximal ureteral stone, without significant hydronephrosis)
[2023-01-18 02:47] VITALS: BP 135/77; PULSE 60; RESP 20; O2SAT 96
[2023-01-18] MEDS: Ketorolac Tromethamine 15 MG/ML VIAL IVPUSH (02:55)
[2023-01-18] MEDS: Lactated Ringers 1,000 ML 999 ML IV (02:56)
[2023-01-18 05:15] VITALS: BP 133/71; PULSE 64; RESP 18; O2SAT 98
== END 2023-01-18 05:18 | disposition home or self-care (01) ==
PROVIDERS: Emergency Provider Emergency Medicine Emergency Medical Services; PCP Internal Medicine
DX: N20.1 Calculus of ureter (principal); R10.2 Pelvic and perineal pain; R31.9 Hematuria, unspecified; Z79.899 Other long term (current) drug therapy
CPT/HCPCS: 36415; 74176; 80048; 80076; 81001; 83690; 85025; 87086; 96365; 96375; 99284; 99285; J1885

== ENCOUNTER 2023-01-23 08:29 | Outpatient (AMB) | payer OTHER, SELFPAY ==
--- NOTE | 2023-01-23 08:35 | MHC.PC.OV ---
Vital Signs 01/23/23 08:37 Height 5 ft 11 in Weight 352 lb BMI 49.1 BP 130/84 Blood Pressure Location Lt brachial Position Sitting Pulse Source Pulse Oximeter Temp Source Skin Oxygen Delivery Method Room Air Intake Visit Reasons: Annual Exam Intake Note: Patient is here today for a physical. Sequins Spooler Required: No Allergies metformin Adverse Reaction (Intermediate, Verified 01/23/23 08:38) Diarrhea Medication List - Last Reconciled 01/23/23 by Mara Hurtado MD albuterol sulfate 90 mcg/actuation (Ventolin HFA) 2 puffs inhalation Q4-6H PRN amlodipine 5 mg PO DAILY aspirin (Adult Aspirin Regimen) 81 mg PO DAILY [CPAP As directed] empagliflozin (Jardiance) 10 mg PO DAILY ezetimibe (Zetia) 10 mg PO DAILY finasteride 5 mg PO DAILY 90 days oxycodone 5 mg PO Q6H PRN rosuvastatin 40 mg PO DAILY 90 days tamsulosin 0.4 mg PO DAILY 90 days valsartan 320 mg PO DAILY Tobacco use date assessed: 01/23/23 Dental Screening Dental Screen Date: 01/23/23 Did you have a dental visit in the last 12 months?: No Did you have a dental problem in the last 6 months where you did not have access to dental care?: No HPI Annual Exam HPI Details 57-year-old obese male with diabetes mellitus obstructive sleep apnea hypertension hypercholesterolemia coronary artery disease and BPH last seen in June 2022. Patient's colonoscopy is up-to-date. Review of the notes recently in the hospital for left ureteral calculus. Patient also had a recent echocardiogramNormal LV ejection fraction of 60 65% with possible wall motion abnormality in the basal inferior and inferoseptal wall, could be due to off axis views 2. Normal cardiac valvular Dopplers 3. Mildly dilated ascending aorta at 3.7 cm 4. No gross pericardial effusion Patient has also followed up with Nephrology continue on Norvasc and valsartan as well as Jardiance. Patient has followed up with Cardiology [facility] Medical History PVCs (premature ventricular contractions) Morbid obesity Impaired glucose tolerance Erectile dysfunction Nephrolithiasis Insomnia Coronary artery disease Obstructive sleep apnea BPH (benign prostatic hyperplasia) Hypercholesterolemia Hypertension Surgical History History of prostate biopsy History of colonoscopy History of carpal tunnel surgery of left wrist Family History (Updated 01/23/23 @ 09:07 by Mara Hurtado MD) Father S/P CABG x 1 Prostate cancer Diabetes Hypertension Mother Diabetes Hypertension Sister Hypertension FH: ovarian cancer Social History Housing: House Alcohol intake: never Patient Tobacco Use Status: Never used Tobacco e-Cigarette/Vaping Use: Never Used Second Hand Smoke Exposure: No service: No Current occupational status: employed Cognitive needs: No Hearing needs: No Vision needs: No Questionnaire PHQ-9 Over the last 2 weeks, how often have you been bothered by any of the following problems? 1. Little interest or pleasure in doing things: not at all 2. Feeling down, depressed, or hopeless: not at all 3. Trouble falling or staying asleep, or sleeping too much: not at all 4. Feeling tired or having little energy: not at all 5. Poor appetite or overeating: not at all 6. Feeling bad about yourself - or that you are a failure or have let yourself or your family down: not at all 7. Trouble concentrating on things, such as reading the newspaper or watching television: not at all 8. Moving or speaking so slowly that other people could have noticed. Or the opposite - being so fidgety or restless that you have been moving around a lot more than usual: not at all 9. Thoughts that you would be better off or of hurting yourself in some way: not at all Total score: 0 Depression Screening Interpretation: Negative Source: Developed by Drs. Brian Lund, Lyssa Gill, Reji Nunez and colleagues, with an educational kathryn from [employer]. Thrive Questionnaire Date Thrive assessed: 07/15/22 AUDIT C Alcohol Use Questionnaire (AUDIT-C) 1. How often do you have a drink containing alcohol?: Never 2. How many drinks containing alcohol do you have on a typical day when you are drinking?: 1 or 2 (0) 3. How often do you have six or more drinks on one occasion?: Never Total Score: 0 Score Reviewed/Action Taken: No JM-7 AMB Questionnaire JM-7 Date JM - 7 assessed: 01/23/23 Feeling nervous, anxious, or on edge: 0 = Not at all Not being able to stop or control worryin = Not at all Worrying too much about different things: 0 = Not at all Trouble relaxin = Not at all Being so restless that it is hard to sit still: 0 = Not at all Becoming easily annoyed or irritable: 0 = Not at all Feeling afraid as if something awful might happen: 0 = Not at all Total JM-7 score (0-4 normal; 5-9 mild; 10-14 moderate; 15-21 severe): 0 Source: Developed by Drs. Brian Lund, Lyssa Gill, Reji Nunez and colleagues, with an educational kathryn from [employer]. Review of Systems Const Denies poor appetite and Denies weakness Eyes Denies no additional complaints ENT Reports Normal hearing present, Denies dizziness, Denies nasal congestion, Denies tinnitus and Denies sore throat Card Denies chest pain, Denies syncope, Denies rapid heart rate and Denies dyspnea Resp Denies cough and Denies dyspnea GI Denies change in stool character, Reports constipation, Denies diarrhea, Denies nausea and Denies vomiting Denies dysuria and Denies urinary frequency Neuro Reports Normal hearing present, Denies confusion, Denies dizziness, Denies syncope and Denies weakness Psych Denies confusion Physical exam (Primary Care) Vital Signs: Last Vital Signs BP 130/84 01/23/23 08:37 Oxygen Delivery Method Room Air 01/23/23 08:37 BMI result Body Mass Index 49.1 Tobacco/Smoking Status: Tobacco use Status Tobacco use date assessed 01/23/23 01/23/23 08:38 Patient Tobacco Use Status Never used Tobacco 01/23/23 08:35 e-Cigarette/Vaping Use Never Used 01/23/23 08:35 PHQ-9: PHQ-9 Score PHQ-9: Total score 0 01/23/23 08:45 Depression Screening Interpretation: Negative Thrive Assessment: Date of Thrive Assessment Date Thrive assessed 07/15/22 01/23/23 08:35 Const General: No confusion Orientation/consciousness: No confusion HENMT Head: Yes normocephalic Ears: external ears normal and TM's normal bilaterally Face and sinus: Yes normal facial exam Mouth: moist mucous membranes Throat: Yes tonsils normal Eyes Conjunctivae: conjunctivae normal Pupils: Equal, round and reactive pupils present and Pupil accommodation reflex normal Direct Ophthalmoscopy: normal light reflex Neck Neck: No lymphadenopathy Thyroid: Thyroid normal Chest Chest palpation & inspection: normal inspection of the chest Resp Effort & Inspection: normal respiratory effort and no audible wheezes Auscultation: clear to auscultation bilaterally, no crackles, no wheezes and lung sounds not diminished Cardio Rate: regular rate Rhythm: regular rhythm Peripheral pulses: radial pulses present and dorsalis pedis present GI Other: guaiac negative, prostate mild enlarged Palpation (GI): no masses Auscultation: normal bowel sounds and normoactive bowel sounds Male General Exam: Yes normal external exam Skin Other: tinea pedis, pin prick and pedal pulse good General skin exam: no rashes or lesions noted Rashes: no rashes Neuro General: No confusion Cranial nerves: Yes Equal, round and reactive pupils present and Yes Normal hearing present Cognition (Neuro): normal cognition Gait exam (Neuro): Normal gait present Motor exam (neuro): 5/5 motor strength present throughout Deep tendon reflexes (DTR's): Right brachioradialis reflex intensity grade: 2+, Left brachioradialis reflex intensity grade: 2+, Right patellar reflex intensity grade: 2+ and Left patellar reflex intensity grade: 2+ Extrem General: No edema Office Procedures Flu Questionnaire Does the patient have a severe egg allergy?: No Does the patient have severe life threatening allergies?: No Does the patient have a fever or illness today?: No Has the patient ever had Guillain-[place] Syndrome?: No Has the patient ever had any past reaction to a flu shot?: No Immunizations flu vacc [id number] 6mos up(PF) 60 mcg(15 mcgx4)/0.5 mL IM syringe Performing Provider: Mara Hurtado MD [facility] Documented (not given) by: NATHALY Martinez on 01/23/23 08:45 Reason Not Given: Patient Refused Assessment and Plan Assessment & Plan (1) Annual physical exam: Code(s): Z00.00 - Encounter for general adult medical examination without abnormal findings (2) Type 2 diabetes mellitus with hyperglycemia: Comment: Target Code(s): E11.65 - Type 2 diabetes mellitus with hyperglycemia Plan: Decrease the amount of carbohydrate intake, pasta, bread, rice and potatoes are all sugar and that is aside from all the sweet stuff, remember that fruits are good but they are Sweet also. Hemoglobin A1c goal of less than 6.26 October 2022 hemoglobin A1c of 5 point continuing with Jardiance 10 mg once a day (3) Coronary artery disease: Comment: Echo June 2018 EF 55-60% nuclear stress negative June 2018, Holter February 23 1019- Code(s): I25.10 - Atherosclerotic heart disease of [place] coronary artery without angina pectoris Qualifiers: Coronary Disease-Associated Artery/Lesion type: [place] artery [place] vs. transplanted heart: [place] heart Associated angina: without angina Qualified Code(s): I25.10 - Atherosclerotic heart disease of [place] coronary artery without angina pectoris Plan: Control the cholesterol, weight, blood pressure, diabetes (4) Obesity: Code(s): E66.9 - Obesity, unspecified Qualifiers: Obesity type: due to excess calories Obesity classification: adult class 3 (BMI >= 40) Serious obesity comorbidity presence: with serious comorbidity Body mass index: BMI 45.0-49.9 Qualified Code(s): E66.01 - Morbid (severe) obesity due to excess calories; Z68.42 - Body mass index [BMI] 45.0-49.9, adult Plan: Diet and exercise (5) Obstructive sleep apnea: Comment: CPAP use Q night > 4 hours Code(s): G47.33 - Obstructive sleep apnea (adult) (pediatric) Plan: Continue with CPAP more than 4 hours a night and benefits from this (6) Hypertension: Code(s): I10 - Essential (primary) hypertension Qualifiers: Hypertension type: essential hypertension Qualified Code(s): I10 - Essential (primary) hypertension Plan: Continue with blood pressure medication. Decrease salt intake and exercise patient takes amlodipine 5 mg once a day and valsartan 320 mg once a day (7) Hypercholesterolemia: Code(s): E78.00 - Pure hypercholesterolemia, unspecified Plan: Avoid fried foods, chicken skin, eggs, butter margarine, pastries and meat. Be it pork or beef they have a lot of cholesterol LDL goal of less than 70. Patient on rosuvastatin 40 mg once a day and Zetia 10 mg once a day (8) BPH w urinary obs/LUTS: Code(s): N40.1 - Benign prostatic hyperplasia with lower urinary tract symptoms; N13.8 - Other obstructive and reflux uropathy Plan: Continue with finasteride 5 mg once a day and tamsulosin 0.4 mg once a day (9) Nephrolithiasis: Comment: October 2019 left hydronephrosis with renal calculi October3Diffuse increase in echogenicity of the liver is characteristic of primary hepatocellular disease, possibly due to hepatic steatosis and further limits visualization. 2. Possible tiny scattered right renal calculi versus artifact. No hydronephrosis. 3. Left renal 0.8 cm midpole and 0.3 cm lower pole calculi. No hydronephrosis. Code(s): N20.0 - Calculus of kidney Plan: Keep well hydrated. (10) Diabetic nephropathy: Code(s): E11.21 - Type 2 diabetes mellitus with diabetic nephropathy Plan: Continue with valsartan continue with blood pressure control continue with Jardiance (11) Tinea pedis: Code(s): B35.3 - Tinea pedis Orders: Orders Influenza [id number] Immunization Today Z23 - Encounter for immunization Referrals Ophthalmology Referral E11.65 - Type 2 diabetes mellitus with hyperglycemia Podiatry Referral E11.65 - Type 2 diabetes mellitus with hyperglycemia Medications: New clotrimazole 1% 1 appl topical BID 4 weeks 45 grams 0RF B35.3 - Tinea pedis guaifenesin ER (Mucinex) 600 mg PO Q12H PRN 20 tabs 1RF congestion R05.9 - Cough, unspecified miconazole nitrate 2% (Zeasorb AF) 1 appl topical DAILY 85 grams 4RF B35.3 - Tinea pedis Changed From empagliflozin (Jardiance) 10 mg PO DAILY 30 tabs 3RF E11.65 - Type 2 diabetes mellitus with hyperglycemia To empagliflozin 25 mg PO DAILY 90 days 90 tabs 3RF E11.65 - Type 2 diabetes mellitus with hyperglycemia Coding Level of Care Code Est Pt Prev Care 40-64y([id number]) Diagnoses Annual physical exam Z00.00 Type 2 diabetes mellitus with hyperglycemia E11.65 Coronary artery disease involving [place] coronary artery of [place] heart without angina pectoris I25.10 Coronary Disease-Associated Artery/Lesion type: [place] artery [place] vs. transplanted heart: [place] heart Associated angina: without angina Class 3 severe obesity due to excess calories with serious comorbidity and body mass index (BMI) of 45.0 to 49.9 in adult E66.01; Z68.42 Obesity type: due to excess calories Obesity classification: adult class 3 (BMI >= 40) Serious obesity comorbidity presence: with serious comorbidity Body mass index: BMI 45.0-49.9 Obstructive sleep apnea G47.33 Essential hypertension I10 Hypertension type: essential hypertension Hypercholesterolemia E78.00 BPH w urinary obs/LUTS N40.1; N13.8 Nephrolithiasis N20.0 Diabetic nephropathy E11.21 Tinea pedis B35.3
[2023-01-23 08:37] VITALS: BP 130/84; BMI 49.1
== END 2023-01-23 09:27 | disposition home or self-care (01) ==
PROVIDERS: Visit Provider Internal Medicine
DX: Z00.00 Encounter for general adult medical examination without abnormal findings (principal); E11.65 Type 2 diabetes mellitus with hyperglycemia; E66.01 Morbid (severe) obesity due to excess calories; Z68.42 Body mass index [BMI] 45.0-49.9, adult; E11.21 Type 2 diabetes mellitus with diabetic nephropathy; I25.10 Atherosclerotic heart disease of native coronary artery without angina pectoris; G47.33 Obstructive sleep apnea (adult) (pediatric); I10 Essential (primary) hypertension; E78.00 Pure hypercholesterolemia, unspecified; N40.1 Benign prostatic hyperplasia with lower urinary tract symptoms; N13.8 Other obstructive and reflux uropathy; N20.0 Calculus of kidney
CPT/HCPCS: 99396

== ENCOUNTER → 2023-01-23 09:42 | Outpatient (REF) | payer OTHER, SELFPAY ==
--- NOTE | ~2023-01-23 | NM_ITS ---
Myocardial perfusion study Indication: Shortness of breath evaluate for myocardial ischemia Technique: The patient was brought in for a Lexiscan perfusion study on 01/23/2023. Patient performed low-level exercise and was injected 0.4 mg of Lexiscan intravenously. Within a minute of injection, 45 mCi of sestamibi was given intravenously. Images were obtained using the SPECT gamma camera interlaced with the gating device. Images were obtained in supine position. Resting perfusion study was performed on 01/24/2023. Patient was administered 45 mCi of sestamibi intravenously at rest. Images were then obtained in supine position. Images obtained with and without CT attenuation. Total DLP 190 mGy-cm. Images were processed with the software and compared side to side in short axis, horizontal long axis and vertical long axis views. Findings: The stress perfusion study showed non attenuated images show mildly reduced uptake in the basal anterior and moderately reduced uptake in the basal inferior wall of the LV myocardium with mildly reduced uptake in the basal and mid inferolateral wall of the LV myocardium. Attenuation corrected images show some thinning of the distal anterior and apical wall with thinning of the inferolateral wall of the LV myocardium is well. The gated study shows normal LV systolic function with calculated LVEF of 56%. LV cavity is normal size. The gated study shows normal systolic wall thickening and contraction of segments. Resting study shows non attenuated images show improved uptake in the basal and mid inferolateral wall of the LV myocardium. Attenuation corrected images also shows normal uptake in an perfused inferolateral wall.. Gating at rest reveals normal systolic wall motion with ejection fraction at 51%. The findings are consistent with possible reversible defect of the basal and mid inferolateral wall suggestive of ischemia.. NM/NM katalina perf SPECT rest & str Impression: 1. Myocardial perfusion imaging study shows equivocal for mild basal and mid inferolateral wall ischemia, suggestive branch vessel disease 2. Gated LVEF is 56% 3. Transient ischemic dilatation not present EKG is nondiagnostic for ischemia
--- NOTE | 2023-01-23 09:45 | CA_ITS ---
Acquisition Time: 2023-01-23 10:10:19 Total Exercise Time: 00:02:00 Test Indications: Dyspnea Medications: ALBUTEROL ATORVASTATIN AMLODIPINE ASA JARDIANCE ZETIA FINASTERIDE TAMSULOSIN VALSARTAN Protocol: LEXISCAN Max HR: 091 BPM 55% of Pred: 165 BPM Max BP: 126/072 mmHG Max Work Load: 1.0 METS Pharmacolgoical stress test with Lexiscan injection while sitting and kicking his legs, without anginal symptoms, without arrhythmias, with normotensive response to injection, with nondiagnoistic EKGs. Nuclear images pending. Test reviewed with Dr. Mari. Referred By: Corby Torres Overread By: Bharati Thompson
== END ==
LOC: HO.CARD 09:42
PROVIDERS: Visit Provider Internal Medicine Cardiovascular Disease
DX: R06.02 Shortness of breath (principal)
CPT/HCPCS: 78452; 93017; A9500; J0280; J2785

== ENCOUNTER → 2023-01-23 09:45 | Outpatient (BNV) | payer OTHER, SELFPAY | PROVIDERS: Visit Provider Nurse Practitioner | DX: R06.02 Shortness of breath (principal) | CPT/HCPCS: 78452; 93016; 93018 ==

== ENCOUNTER 2023-01-26 03:24 | Emergency (ER) | payer OTHER, SELFPAY ==
--- NOTE | 2023-01-26 | ECG_ITS ---
Test Reason : CHEST PAIN Blood Pressure : / mmHG Vent. Rate : 071 BPM Atrial Rate : 071 BPM P-R Int : 200 ms QRS Dur : 094 ms QT Int : 384 ms P-R-T Axes : 068 050 067 degrees QTc Int : 417 ms Normal sinus rhythm Normal ECG When compared with ECG of 30-OCT-2018 08:11, No significant change was found Referred By: Generic ED Physician Electronically Signed By:RIMMA RUVALCABA
--- NOTE | ~2023-01-26 | XR_ITS ---
EXAMINATION: XR CHEST CLINICAL INFORMATION: Shortness of breath. COMPARISON: 07/02/2018. TECHNIQUE: 2 views of the chest were obtained. FINDINGS: The cardiomediastinal silhouette is normal. There is no focal lung consolidation or pleural effusion. The bony structures and soft tissues are unremarkable. XR/XR chest 2V IMPRESSION: No active cardiopulmonary disease.
[2023-01-26 03:42] VITALS: BP 158/66; PULSE 94; RESP 20; TEMP 36.7; O2SAT 94; BMI 49.8
[2023-01-26 03:45] LABS: Hematocrit 45.2 % (42.0-52.0); Hemoglobin 14.4 g/dl (14.0-18.0); Mean Corpuscular HGB Conc 31.9 g/dl (31.0-36.0); Mean Corpuscular Hemoglobin 26.9 pg (27.0-33.0); Mean Corpuscular Volume 84.3 fL (80.0-98.0); Mean Platelet Volume 8.7 fL (9.4-12.4); Platelet Count 259 X10*3/uL (160-400); Red Blood Count 5.36 X10*6/uL (4.60-5.80); Red Cell Distribution Width 16.1 % (11.0-16.0); White Blood Count 11.4 X10*3/uL (4.8-10.8)
[2023-01-26 04:00] LABS: Alanine Aminotransferase 40 U/L (0-40); Albumin Level 3.7 g/dL (3.5-5.0); Alkaline Phosphatase 75 U/L (39-117); Anion Gap 16 (12-20); Aspartate Amino Transferase 36 U/L (5-37); Bilirubin Total 0.3 mg/dL (0.0-1.0); Blood Urea Nitrogen 25 mg/dL (9-16); Calcium 9.3 mg/dL (8.4-10.2); Carbon Dioxide 23 mmol/L (22-29); Chloride 106 mmol/L (96-108); Estimated Glomerular Filt Rate 57; Glucose Random 113 mg/dL (60-115); Potassium 3.7 mmol/L (3.3-5.1); Sodium 141 mmol/L (135-145); Total Protein 7.3 g/dL (6.5-8.0)
[2023-01-26 04:06] LABS: Troponin-I High Sensitivity 59.2 ng/L (<3.5-35.0)
[2023-01-26 04:22] LABS: Influenza A PCR NEGATIVE (Negative); Influenza B PCR NEGATIVE (Negative); Resp Syncy Virus RNA Qual PCR NEGATIVE (Negative); SARS COV2 PCR INHOUSE NEGATIVE (Negative)
--- NOTE | 2023-01-26 04:37 | ED_ITS ---
HPI - General Adult General Chief complaint: General Medical Stated complaint: Chest tightness from coughing, trouble breathing Time Seen by Provider: 01/26/23 04:37 Source: patient Mode of arrival: ambulatory Limitations: no limitations History of Present Illness HPI narrative: Patient type 2 diabetes with history of RAGHAV on CPAP, hypertension comes in for 1 week of cough with mucopurulent expectoration no fever no chills with increased shortness of breath with wheezing no other family member sick labs done prior to my evaluation showed negative COVID or RSV or flu chest x-ray negative for infiltrate Related Data Home Medications Medication Instructions Recorded Confirmed aspirin 81 mg tablet,delayed 81 mg PO DAILY 03/18/20 01/23/23 release (Adult Aspirin Regimen) Previous Rx's Medication Instructions Recorded CPAP #1 ea 01/15/21 valsartan 320 mg tablet 320 mg PO DAILY #90 tabs 06/28/22 finasteride 5 mg tablet 5 mg PO DAILY 90 days #90 tabs 07/05/22 ezetimibe 10 mg tablet (Zetia) 10 mg PO DAILY #30 tabs 07/15/22 tamsulosin 0.4 mg capsule 0.4 mg PO DAILY 90 days #90 caps 09/17/22 rosuvastatin 40 mg tablet 40 mg PO DAILY 90 days #90 tabs 11/03/22 amlodipine 5 mg tablet 5 mg PO DAILY #90 tabs 01/06/23 albuterol sulfate 90 mcg/actuation 2 puff inhalation Q4-6H PRN 01/18/23 aerosol inhaler (Ventolin HFA) shortness of breath or wheezing #8.5 grams oxycodone 5 mg tablet 5 mg PO Q6H PRN pain #14 tabs 01/18/23 clotrimazole 1 % topical cream 1 appl topical BID 4 weeks #45 01/23/23 grams empagliflozin 25 mg tablet 25 mg PO DAILY 90 days #90 tabs 01/23/23 guaifenesin 600 mg tablet, 600 mg PO Q12H PRN congestion #20 01/23/23 extended release 12 hr (Mucinex) tabs miconazole nitrate 2 % topical 1 appl topical DAILY #85 grams 01/23/23 powder (Zeasorb AF) cefuroxime axetil 500 mg tablet 500 mg PO BID 10 days #20 tabs 01/26/23 codeine 10 mg-guaifenesin 100 mg/5 10 ml PO Q6H PRN cough #237 mL 01/26/23 mL oral liquid prednisone 20 mg tablet 40 mg (2 x 20 mg) PO DAILY #10 tabs 01/26/23 Allergies Allergy/AdvReac Type Severity Reaction Status Date / Time metformin AdvReac Intermediate Diarrhea Verified 01/23/23 08:38 Review of Systems 2 Review of Systems: Yes all other systems are reviewed and are negative [facility] Past Medical History Medical History PVCs (premature ventricular contractions) Morbid obesity Impaired glucose tolerance Erectile dysfunction Nephrolithiasis Insomnia Coronary artery disease Obstructive sleep apnea BPH (benign prostatic hyperplasia) Hypercholesterolemia Hypertension Surgical History History of prostate biopsy History of colonoscopy History of carpal tunnel surgery of left wrist Family History Family History Father S/P CABG x 1 Prostate cancer Diabetes Hypertension Mother Diabetes Hypertension Sister Hypertension FH: ovarian cancer Social History Social History Housing: House Alcohol intake: never Patient Tobacco Use Status: Never used Tobacco Smoked in Last 30 Days: No e-Cigarette/Vaping Use: Never Used Second Hand Smoke Exposure: No Use of substances other than those prescribed or required for medical reasons: No Advance Directives: No Advance Directives Information Provided: Yes service: No Current occupational status: employed Cognitive needs: No Hearing needs: No Vision needs: No Physical Exam ED Vital Signs: Vital Signs - 24 hr 01/26/23 03:42 01/26/23 05:29 01/26/23 06:00 Temperature 98.0 F 98.2 F Pulse Rate 94 67 68 Respiratory Rate 20 18 17 Blood Pressure 158/66 H 138/71 Pulse Oximetry 94 93 Oxygen Delivery Method Room Air Room Air BMI result Body Mass Index 49.8 Appearance: Alert. Oriented X3. No acute distress. Obese Eyes: PERRLA, No Nystagmus ENT: Pharynx normal. Oral Mucosa moist Neck: Normal inspection. Neck supple. CVS: Normal heart rate and rhythm. Pulses normal. Respiratory: No respiratory distress. Equal air entry bilateral, bilateral wheezing Abdomen: Soft and nontender. Bowel sounds are present, no mass palpable, no CVA tenderness Skin: Skin warm and dry. Normal skin color. Normal skin turgor. Extremities: No lower extremity edema. No calf tenderness Neuro: Oriented X 3. No motor deficit. Medications Administered Discontinued Medications Generic Name Dose Route Start Last Admin Trade Name Freq PRN Reason Stop Dose Admin Albuterol Sulfate 2.5 mg 01/26/23 05:25 01/26/23 05:28 Albuterol Sulfate (0.083%) 2.5 Mg/3 Ml Vial.Neb INHALE 01/26/23 05:26 2.5 mg ONCE ONE Administration Albuterol Sulfate 5 mg 01/26/23 06:43 01/26/23 07:18 Albuterol Sulfate (0.083%) 2.5 Mg/3 Ml Vial.Neb INHALE 01/26/23 06:44 5 mg ONCE ONE Administration Albuterol/Ipratropium 3 ml 01/26/23 06:43 01/26/23 07:17 Albuterol/Iprat 2.5/0.5mg 3 Ml Ampul.Neb INHALE 01/26/23 06:44 3 ml ONCE ONE Administration Dexamethasone Sodium Phosphate 10 mg 01/26/23 04:45 01/26/23 05:00 Dexamethasone Sod Phosphate 10 Mg/Ml Vial IVPUSH 01/26/23 04:46 10 mg ONCE ONE Administration Guaifenesin/Codeine Phosphate 10 ml 01/26/23 04:46 01/26/23 05:00 Guaifen/Codeine Sf 200/20/10ml 10 Ml Liquid PO 01/26/23 04:47 10 ml ONCE ONE Administration Medical Decision Making Medical Decision Making [facility] Narrative: Patient clinically with acute bronchitis with cough cold symptoms for last 1 week chest x-ray negative COVID RSV flu negative patient been wheezing in the ER received nebulizing treatment and Decadron feeling better now will discharge patient home on short course of antibiotic Ceftin and prednisone along with advised to continue nebulizing treatment No acute ischemic changes in the EKG no change in delta troponin CPK normal no typical chest pain Differential Diagnosis Differential Diagnoses: The differential diagnosis associated with the presentation includes Pneumonia/bronchitis/CHF//ACS Admission/Observation Consideration of admission/observation: Escalation of care including admission/observation considered Lab Data [facility] Lab Attestation statement: I reviewed the patient's lab results. 01/26/23 03:39 01/26/23 03:39 Labs: Lab Results 01/26/23 01/26/23 01/26/23 Range/Units 03:39 04:54 04:55 WBC 11.4 H (4.8-10.8) X10*3/uL RBC 5.36 (4.60-5.80) X10*6/uL Hgb 14.4 (14.0-18.0) g/dl Hct 45.2 (42.0-52.0) % MCV 84.3 (80.0-98.0) fL MCH 26.9 L (27.0-33.0) pg MCHC 31.9 (31.0-36.0) g/dl RDW 16.1 H (11.0-16.0) % Plt Count 259 (160-400) X10*3/uL MPV 8.7 L (9.4-12.4) fL Absolute Nucleated RBC 0.000 (0.0-0.012) X10*3/uL Nucleated RBC % (auto) 0.0 (0.0-0.2) /100WBC PT 12.4 (11.1-13.3) SEC INR 1.0 (0.9-1.1) Sodium 141 (135-145) mmol/L Potassium 3.7 D (3.3-5.1) mmol/L Chloride 106 (96-108) mmol/L Carbon Dioxide 23 (22-29) mmol/L Anion Gap 16 (12-20) BUN 25 H (9-16) mg/dL Creatinine 1.31 (0.5-1.4) mg/dL Estim Creat Clear Calc 99.0 Estimated GFR 57 Random Glucose 113 (60-115) mg/dL Calcium 9.3 (8.4-10.2) mg/dL Total Bilirubin 0.3 (0.0-1.0) mg/dL AST 36 (5-37) U/L ALT 40 (0-40) U/L Alkaline Phosphatase 75 (39-117) U/L Total Creatine Kinase 144 (38-174) U/L Troponin I High Sens 59.2 H 62.4 H (<3.5-35.0) ng/L B-Natriuretic Peptide 25 (<100) pg/mL Total Protein 7.3 (6.5-8.0) g/dL Albumin 3.7 (3.5-5.0) g/dL Influenza Type A (PCR) NEGATIVE (Negative) Influenza Type B (PCR) NEGATIVE (Negative) RSV RNA Qual (PCR) NEGATIVE (Negative) SARS-CoV-2 RNA (RT-PCR) NEGATIVE (Negative) Independent Interpretation I performed an independent interpretation of an: EKG Interpretation: Normal sinus rhythm heart rate 71 beats per minute normal intervals normal axis no acute ST-T changes no acute ischemia Radiology Impression Discussion of test interpretation with radiology: I have reviewed the radiologist's reading. Discharge Plan Discharge Clinical Impression: Acute bronchitis Patient Disposition: Home, Self-Care Instructions: Acute Bronchitis (ED) Additional Instructions: Take antibiotic and prednisone as prescribed Continue taking her nebulizing treatment every 4 hour as needed Uses a CPAP machine Follow with PCP if not better Prescriptions: New prednisone 20 mg tablet 40 mg PO DAILY Qty: 10 0RF cefuroxime axetil 500 mg tablet 500 mg PO BID 10 Days Qty: 20 0RF codeine-guaifenesin 10-100 mg/5 mL liquid 10 ml PO Q6H PRN (Reason: cough) Qty: 237 0RF No Action (DME) CPAP See Rx Instructions .Route .MEDSUPPLY Qty: 1 0RF Rx Instructions: As directed valsartan 320 mg tablet 320 mg PO DAILY Qty: 90 2RF finasteride 5 mg tablet 5 mg PO DAILY 90 Days Qty: 90 1RF tamsulosin 0.4 mg capsule 0.4 mg PO DAILY 90 Days Qty: 90 1RF amlodipine 5 mg tablet 5 mg PO DAILY Qty: 90 2RF albuterol sulfate [Ventolin HFA] 90 mcg/actuation HFA aerosol inhaler 2 puff inhalation Q4-6H PRN (Reason: shortness of breath or wheezing) Qty: 8.5 0RF oxycodone 5 mg tablet 5 mg PO Q6H PRN (Reason: pain) Qty: 14 0RF Rx Instructions: Patient may request partial refill; Partial Fill upon patient request. aspirin [Adult Aspirin Regimen] 81 mg tablet,delayed release (DR/EC) 81 mg PO DAILY clotrimazole 1 % cream 1 appl topical BID 28 Days Qty: 45 0RF miconazole nitrate [Zeasorb AF] 2 % powder 1 appl topical DAILY Qty: 85 4RF Jardiance 25 mg tablet 25 mg PO DAILY 90 Days Qty: 90 3RF guaifenesin [Mucinex] 600 mg tablet extended release 12hr 600 mg PO Q12H PRN (Reason: congestion) Qty: 20 1RF rosuvastatin 40 mg tablet 40 mg PO DAILY 90 Days Qty: 90 1RF ezetimibe [Zetia] 10 mg tablet 10 mg PO DAILY Qty: 30 5RF
[2023-01-26] MEDS: dexAMETHasone sod phosphate 10 MG/ML VIAL IVPUSH (05:00)
[2023-01-26] MEDS: guaiFEN/Codeine SF 200/20/10ML 10 ML LIQUID PO (05:00)
[2023-01-26 05:06] LABS: Prothrombin Time 12.4 SEC (11.1-13.3)
[2023-01-26 05:12] LABS: B Type Natriuretic Peptide 25 pg/mL (<100)
[2023-01-26 05:20] LABS: Troponin-I High Sensitivity 62.4 ng/L (<3.5-35.0)
--- NOTE | 2023-01-26 05:26 | PC.NURSE ---
PT AOx4, ambulated to room with a steady gait, pt reporting 8/10 chest tightness with SOB, worse when lying down/going up stairs, pt reports a productive cough. Pt denies fever/chills, wheezing heard bilaterally throughout, pt reports no hx of asthma/COPD. IV placed, labs drawn, and sent to lab.
[2023-01-26] MEDS: Albuterol Sulfate (0.083%) 2.5 MG/3 ML VIAL.NEB INHALE (05:28)
[2023-01-26 05:29] VITALS: PULSE 67; RESP 18; O2SAT 96
[2023-01-26 06:00] VITALS: BP 138/71; PULSE 68; RESP 17; TEMP 36.8; O2SAT 93
[2023-01-26 07:18] VITALS: PULSE 67; RESP 17; O2SAT 95
== END 2023-01-26 08:23 | disposition home or self-care (01) ==
PROVIDERS: Emergency Provider Internal Medicine
DX: J20.9 Acute bronchitis, unspecified (principal); R06.02 Shortness of breath; Z20.822 Contact with and (suspected) exposure to COVID-19; Z20.828 Contact with and (suspected) exposure to other viral communicable diseases; E66.9 Obesity, unspecified; Z68.42 Body mass index [BMI] 45.0-49.9, adult
CPT/HCPCS: 0241U; 36415; 71046; 80053; 82550; 83880; 84484; 85027; 85610; 93005; 94640; 96374; 99285; J1100

== ENCOUNTER 2023-02-15 07:56 | Outpatient (REF) | payer OTHER, SELFPAY ==
[2023-02-15 10:02] LABS: Anion Gap 14 (12-20); Blood Urea Nitrogen 18 mg/dL (9-16); Calcium 9.4 mg/dL (8.4-10.2); Carbon Dioxide 25 mmol/L (22-29); Chloride 106 mmol/L (96-108); Estimated Glomerular Filt Rate > 60; Glucose Random 110 mg/dL (60-115); Potassium 3.7 mmol/L (3.3-5.1); Sodium 141 mmol/L (135-145)
[2023-02-15 10:35] LABS: Prostate Specific Antigen 9.28 ng/mL (<0.05-4.0)
== END 2023-02-15 07:57 | disposition home or self-care (01) ==
LOC: HO.LAB 07:56
PROVIDERS: Internal Medicine Cardiovascular Disease; Visit Provider Urology
DX: I25.10 Atherosclerotic heart disease of native coronary artery without angina pectoris (principal); R94.39 Abnormal result of other cardiovascular function study; N40.1 Benign prostatic hyperplasia with lower urinary tract symptoms; N13.8 Other obstructive and reflux uropathy; R97.20 Elevated prostate specific antigen [PSA]
CPT/HCPCS: 36415; 80048; 84153

== ENCOUNTER 2023-02-21 11:20 | Outpatient (AMB) | payer OTHER, SELFPAY ==
--- NOTE | 2023-02-21 11:30 | A.OFFVIS_ITS ---
Intake Intake Visit Reasons: 1Y PVR/PSA(set) Intake Note: Patient is Present for Follow Up Urology Medication: Finasteride, Tamsulosin, Antibiotic Allergies: None Blood Thinners: Aspirin Pharmacy: [facility] PVR: 25 Allergies metformin Adverse Reaction (Intermediate, Verified 02/21/23 11:31) Diarrhea HPI HPI Comments History of Present Illness Details Michael JO is a very pleasant male. They are a patient of Dr Hurtado. They are seen in the office today for the following urologic conditions. - elevated PSA - lower urinary tract symptoms - erectile dysfunction Sudden jump on finasteride Status prostate biopsy Will be organized Good response to sildenafil 100 mg Review in 12 months Elevated PSA/Abnormal KESHAV: check in 6 months He presents for further evaluation of elevated - s/p TRUS - negative. Current management is observation. Laboratory investigations include 02/07 4.0 10/09 2.7 11/09 2.9 12/11 6.6, 06/14 1.6 on finasteride, 11/11 1.4, 06/15 1.3, 11/12 1.0, 01/14 9.3 Imaging investigations include a transrectal ultrasound Yes Date 02/2017 Prostate Volume 60 Individualized Prostate Cancer Risk Calculator 5-10% high risk,. A TRUS biopsy has been performed and is negative 03/10 Symptoms include nocturia, x 3, and are stable. Therapeutic plan will be continued surveillance Lower Urinary Tract Symptoms: Current visit is for further evaluation of, predominate obstructive symptoms. Current treatment includes medication, alpha teresa - good response. Prostate Symptom Score Mild (0-8), Bother 3. Symptoms include /18 , weak stream, and are progressing 11/08 improved voiding. Prior Prostate Score unknown. Prostate volume 30-50gm. Testing at next visit will include bladder scan. Treatment plan continue with current medications . Erectile dysfunction: Good response to 100 mg sildenafil He presents today for for continued evaluation and management of erectile dysfunction. Symptoms have been present for/since ongoing. Current treatment includes medications. At this time he experiences erections are partial and adequate for vaginal penetration, that undergo rapid detumesence after penetration, YOLA 8-11 Moderate ED. Currently they are in a stable relationship. Therapeutic plan includes increasing dose of oral medication [facility] Medical History PVCs (premature ventricular contractions) Morbid obesity Impaired glucose tolerance Erectile dysfunction Nephrolithiasis Insomnia Coronary artery disease Obstructive sleep apnea BPH (benign prostatic hyperplasia) Hypercholesterolemia Hypertension Surgical History History of prostate biopsy History of colonoscopy History of carpal tunnel surgery of left wrist Family History Father S/P CABG x 1 Prostate cancer Diabetes Hypertension Mother Diabetes Hypertension Sister Hypertension FH: ovarian cancer Social History Housing: House Alcohol intake: never Patient Tobacco Use Status: Never used Tobacco e-Cigarette/Vaping Use: Never Used Second Hand Smoke Exposure: No service: No Current occupational status: employed Cognitive needs: No Hearing needs: No Vision needs: No Review of Systems Const Denies chills and Denies fever(s) Card Reports no additional complaints and Denies syncope Resp Denies cough GI Denies abdominal pain and Denies heartburn Reports as per HPI and Denies change in libido Neuro Denies syncope Psych Denies change in libido Endo Denies change in libido Physical Exam Const General: cooperative, healthy appearing, comfortable and no acute distress Orientation/consciousness: patient oriented x3 HEENT Face and sinus: Yes normal facial exam Mouth: moist mucous membranes Neck Neck: Yes normal visual inspection, Yes full ROM and Yes trachea midline Chest Chest palpation & inspection: normal inspection of the chest Resp Effort & Inspection: normal respiratory effort, able to speak in complete sentences and no respiratory distress GI Inspection: Yes normal to inspection Back/Spine/Pelvis Cervical Spine: normal cervical lordosis Thoracic/Lumbar Spine: thoracic and lumbar spine normal to inspection Skin General skin exam: no rashes or lesions noted Neuro General: patient oriented x3, gait normal, tone normal and moves all extremities Extrem General: Yes normal to inspection and Yes capillary refill normal Office Procedures Post Void Residual Post Residual Void Post Void Residual (PVR): 25 13860-Fhlm Void Residual by ultrasound Results AMB Urinalysis, Automated UA Leukoctes 0 Randal/uL Last Edit by NATHALY Chan on 02/21/23 11:41 UA Nitrite Negative Last Edit by NATHALY Chan on 02/21/23 11:41 UA Urobilinogen 0.2 mg/dL Last Edit by Puja Matos, RMA on 02/21/23 11:4 1 UA Protein 15 mg/dL Last Edit by Puja Matos, RMA on 02/21/23 11:41 UA pH 5.0 Last Edit by Puja Matos, RMA on 02/21/23 11:41 UA Blood 10 Jian/uL Last Edit by Puja Matos, RMA on 02/21/23 11:41 UA Specific [place] 1.020 Last Edit by Puja Matos, RMA on 02/21/23 11: 41 UA Ketone Negative Last Edit by Puja Matos, RMA on 02/21/23 11:41 UA Bilirubin 0 mg/dL Last Edit by Puja Matos, RMA on 02/21/23 11:41 UA Glucose 1000 mg/dL Last Edit by Puja Matos, RMA on 02/21/23 11:41 Results Reviewed Results Reviewed: Laboratory Last Values Urine pH (Auto) 5.0 02/21/23 11:40 Specific [place] (Auto) 1.020 02/21/23 11:40 Urine Protein (Auto) 15 mg/dL 02/21/23 11:40 Glucose (UA)(Auto) 1000 mg/dL 02/21/23 11:40 Urine Ketones (Auto) Negative 02/21/23 11:40 Urine Blood (Auto) 10 Jian/uL 02/21/23 11:40 Urine Nitrite (Auto) Negative 02/21/23 11:40 Urine Bilirubin (Auto) 0 mg/dL 02/21/23 11:40 Urine Urobilinogen (Auto) 0.2 mg/dL 02/21/23 11:40 Leukocyte Esterase (Auto) 0 Randal/uL 02/21/23 11:40 Assessment & Plan Assessment & Plan (1) BPH w urinary obs/LUTS: Comment: Benign prostate biopsy March [address]23 [address]. Aguirre Code(s): N40.1 - Benign prostatic hyperplasia with lower urinary tract symptoms; N13.8 - Other obstructive and reflux uropathy (2) Elevated PSA: Code(s): R97.20 - Elevated prostate specific antigen [PSA] Plan Risks and benefits regarding trans rectal ultrasound with prostate biopsy were discussed. Options of continued surveillance, no treatment and biopsy were offered. The risks include but are not limited to, urinary tract infection, sepsis, difficulty urinating, bleeding into the rectum or bladder that requires intervention and transfusion,and failure to diagnose prostate cancer. The patient understands the options and the risks involved. They wish to proceed. Printed information was provided to ensure he remains off anticoagulation for the appropriate length of time. He may require cardiology or PCP clearance. An antibiotic will be administered prior to, and following the procedure Orders: Orders AMB Post Void Residual by ultrasound 02/21/23 N40.1 - Benign prostatic hyperplasia with lower urinary tract symptoms, N13.8 - Other obstructive and reflux uropathy AMB Urinalysis Automated 02/21/23 Z13.9 - Encounter for screening, unspecified Medications: New levofloxacin Take day before, day of and day after procedure 500 mg PO ONCE 3 tabs 0RF 3 days R97.20 - Elevated prostate specific antigen [PSA] Patient Instructions: Imaging studies, laboratory and physical exam results were discussed and reviewed in detail. No major barriers to patient understanding were identified. An opportunity to ask questions regarding the treatment plan was provided. All questions were answered. The patient expressed understanding and agreement with the above treatment plan. The patient is aware they should contact our office by phone for worsening of their current condition or the appearance of new urologic symptoms. Compliance is encouraged with any medications and followup testing that is ordered. It is a privilege to participate in the urologic care of your patient. If you have any questions or concerns regarding treatment for the above conditions, or other urologic issues, please do not hesitate to contact me. The office tele phone contact is [phone]. This note is constructed using voice recognition software. While every effort has been made to ensure accuracy jordan man errors may have been included. Yours sincerely, Dr Melchor Aguirre MD, [facility] - Urology Providers of Expert, Compassionate Care for the Genitourinary System Coding Level of Care Code Est Pt Level 4 (11251) Diagnoses BPH w urinary obs/LUTS N40.1; N13.8 Elevated PSA R97.20 CPT Codes Post Residual Void - PVR CPT Code: 96445-[id number] Void Residual by ultrasound ([id number])
== END 2023-02-21 12:03 | disposition home or self-care (01) ==
PROVIDERS: Visit Provider Urology
DX: N40.1 Benign prostatic hyperplasia with lower urinary tract symptoms (principal); N13.8 Other obstructive and reflux uropathy; R97.20 Elevated prostate specific antigen [PSA]
CPT/HCPCS: 99214

== ENCOUNTER → 2023-02-21 11:20 | Outpatient (BNVA) | payer OTHER, SELFPAY | PROVIDERS: Visit Provider Urology | DX: N40.1 Benign prostatic hyperplasia with lower urinary tract symptoms (principal); N13.8 Other obstructive and reflux uropathy; R97.20 Elevated prostate specific antigen [PSA] | CPT/HCPCS: 51798; 81003; 99212 ==

== ENCOUNTER 2023-04-06 07:27 | Outpatient (REF) | payer OTHER, SELFPAY ==
[2023-04-06 07:51] VITALS: BMI 48.4
[2023-04-06 07:53] VITALS: BP 129/62; PULSE 70; RESP 16; TEMP 36.3; O2SAT 97
--- NOTE | 2023-04-06 08:30 | P.OP_ITS ---
Operative Note Operative Note Date of Service: 04/06/23 Narrative: Preoperative diagnosis: Elevated PSA Postoperative diagnosis: Elevated PSA Procedure: 1. transrectal ultrasound measurement of prostate 2. transrectal ultrasound-guided pudendal nerve block 3. transrectal ultrasound-guided prostate biopsy 12 core Surgeon: Dr. Melchor Aguirre Anesthetic: Local Indications for procedure: Elevated PSA 9.3 Procedure: After informed consent was verified, the patient was brought into the procedure area and lay left-hand side down on the table. Patient identity confirmed. Perioperative antibiotics confirmed. Safety pause time out performed. KESHAV performed to dilate rectal sphincter Iodine 10cc with Gel was placed per rectum Ultrasound probe was placed per rectum The prostate was measured in 3 dimensions Total volume equals 90 gm No cystic structures were noted No calcifications were noted at the surgical margin The prostate was otherwise homogeneous in nature An ultrasound-guided pudendal nerve block was performed using 10 cc of 1% lidocaine. 8 cc was placed at the base and 2 cc of the apex. A 12 core biopsy was performed with 6 cores each side. Two cores were taken at the apex, mid and base. Cores were spaced between lateral and medial. He tolerated the procedure well. Was able to ambulate to bathroom after 5 minutes. Printed instructions regarding antibiotic use and common side effects such as low-grade temperature, potential infection and bleeding were given Pathology: 12 core prostate biopsy. Breast [place] Node Biopsy Substrate(s) used for sentinel node biopsy in the neoadjuvant setting: Radiotracer General Surg. - Synoptic Notes Breast [place] Node Biopsy Substrate(s) used for sentinel node biopsy in the neoadjuvant setting: Radiotracer
[2023-04-06 08:36] VITALS: BP 130/65; PULSE 75; RESP 16; O2SAT 97
== END 2023-04-06 07:28 | disposition home or self-care (01) ==
LOC: HO.MS 07:27
PROVIDERS: PCP Internal Medicine; Visit Provider Urology
PROC: (CPT 55700; principal; 2023-04-06 08:00)
DX: R97.20 Elevated prostate specific antigen [PSA] (principal)
CPT/HCPCS: 55700; 76942; 88305

== ENCOUNTER → 2023-04-06 07:27 | Outpatient (BNV) | payer OTHER, SELFPAY | PROVIDERS: PCP Internal Medicine; Visit Provider Urology | DX: R97.20 Elevated prostate specific antigen [PSA] (principal) | CPT/HCPCS: 55700; 76942 ==

== ENCOUNTER 2023-05-03 09:20 | Outpatient (AMB) | payer OTHER, SELFPAY ==
--- NOTE | 2023-05-03 09:33 | MHC.OFFVIS ---
Intake Intake Visit Reasons: Bx results Intake Note: Patient is Present for Follow Up Biopsy Results Urology Medication: Finasteride, Tamsulosin Antibiotic Allergies: None Blood Thinners: Aspirin Allergies metformin Adverse Reaction (Intermediate, Verified 02/21/23 11:31) Diarrhea HPI HPI Comments History of Present Illness Details Michael JO is a very pleasant male. They are a patient of Dr Hurtado. They are seen in the office today for the following urologic conditions. - elevated PSA - lower urinary tract symptoms - erectile dysfunction Prostate biopsy inflammation Follow-up 6 months PSA Good response to sildenafil 100 mg Elevated PSA/Abnormal KESHAV: check in 6 months He presents for further evaluation of elevated - s/p TRUS - negative. Current management is observation. Laboratory investigations include 02/07 4.0 10/09 2.7 11/09 2.9 12/11 6.6, 06/14 1.6 on finasteride, 11/11 1.4, 06/15 1.3, 11/12 1.0, 01/14 9.3 Imaging investigations include a transrectal ultrasound Yes Date 02/2017 Prostate Volume 60 Individualized Prostate Cancer Risk Calculator 5-10% high risk,. A TRUS biopsy has been performed and is negative 03/10 Symptoms include nocturia, x 3, and are stable. Therapeutic plan will be continued surveillance Lower Urinary Tract Symptoms: Current visit is for further evaluation of, predominate obstructive symptoms. Current treatment includes medication, alpha teresa - good response. Prostate Symptom Score Mild (0-8), Bother 3. Symptoms include 5/18 , weak stream, and are progressing / improved voiding. Prior Prostate Score unknown. Prostate volume 30-50gm. Testing at next visit will include bladder scan. Treatment plan continue with current medications . Erectile dysfunction: Good response to 100 mg sildenafil He presents today for for continued evaluation and management of erectile dysfunction. Symptoms have been present for/since ongoing. Current treatment includes medications. At this time he experiences erections are partial and adequate for vaginal penetration, that undergo rapid detumesence after penetration, YOLA 8-11 Moderate ED. Currently they are in a stable relationship. Therapeutic plan includes increasing dose of oral medication [facility] Medical History PVCs (premature ventricular contractions) Morbid obesity Impaired glucose tolerance Erectile dysfunction Nephrolithiasis Insomnia Coronary artery disease Obstructive sleep apnea BPH (benign prostatic hyperplasia) Hypercholesterolemia Hypertension Surgical History History of prostate biopsy History of colonoscopy History of carpal tunnel surgery of left wrist Family History Father S/P CABG x 1 Prostate cancer Diabetes Hypertension Mother Diabetes Hypertension Sister Hypertension FH: ovarian cancer Social History Housing: House Alcohol intake: never Patient Tobacco Use Status: Never used Tobacco e-Cigarette/Vaping Use: Never Used Second Hand Smoke Exposure: No service: No Current occupational status: employed Cognitive needs: No Hearing needs: No Vision needs: No Review of Systems Const Denies chills and Denies fever(s) Card Reports no additional complaints and Denies syncope Resp Denies cough GI Denies abdominal pain and Denies heartburn Reports as per HPI and Denies change in libido Neuro Denies syncope Psych Denies change in libido Endo Denies change in libido Physical Exam Const General: cooperative, healthy appearing, comfortable and no acute distress Orientation/consciousness: patient oriented x3 HEENT Face and sinus: Yes normal facial exam Mouth: moist mucous membranes Neck Neck: Yes normal visual inspection, Yes full ROM and Yes trachea midline Chest Chest palpation & inspection: normal inspection of the chest Resp Effort & Inspection: normal respiratory effort, able to speak in complete sentences and no respiratory distress GI Inspection: Yes normal to inspection Back/Spine/Pelvis Cervical Spine: normal cervical lordosis Thoracic/Lumbar Spine: thoracic and lumbar spine normal to inspection Skin General skin exam: no rashes or lesions noted Neuro General: patient oriented x3, gait normal, tone normal and moves all extremities Extrem General: Yes normal to inspection and Yes capillary refill normal Assessment & Plan Assessment & Plan (1) Nephrolithiasis: Comment: October 2019 left hydronephrosis with renal calculi October3Diffuse increase in echogenicity of the liver is characteristic of primary hepatocellular disease, possibly due to hepatic steatosis and further limits visualization. 2. Possible tiny scattered right renal calculi versus artifact. No hydronephrosis. 3. Left renal 0.8 cm midpole and 0.3 cm lower pole calculi. No hydronephrosis. Code(s): N20.0 - Calculus of kidney (2) Erectile dysfunction associated with type 2 diabetes mellitus: Code(s): E11.69 - Type 2 diabetes mellitus with other specified complication; N52.1 - Erectile dysfunction due to diseases classified elsewhere (3) Elevated PSA: Code(s): R97.20 - Elevated prostate specific antigen [PSA] Plan 6 month follow-up PSA tele Orders: Orders PSA,Total (Free>4and<10) 6 Months R97.20 - Elevated prostate specific antigen [PSA] Patient Instructions: Imaging studies, laboratory and physical exam results were discussed and reviewed in detail. No major barriers to patient understanding were identified. An opportunity to ask questions regarding the treatment plan was provided. All questions were answered. The patient expressed understanding and agreement with the above treatment plan. The patient is aware they should contact our office by phone for worsening of their current condition or the appearance of new urologic symptoms. Compliance is encouraged with any medications and followup testing that is ordered. It is a privilege to participate in the urologic care of your patient. If you have any questions or concerns regarding treatment for the above conditions, or other urologic issues, please do not hesitate to contact me. The office telephone contact is [phone]. This note is constructed using voice recognition software. While every effort has been made to ensure accuracy machine learning intern errors may have been included. Yours sincerely, Dr Melchor Aguirre MD, [facility] - Urology Providers of Expert, Compassionate Care for the Genitourinary System Coding Level of Care Code Est Pt Level 3 (58172) Diagnoses Nephrolithiasis N20.0 Erectile dysfunction associated with type 2 diabetes mellitus E11.69; N52.1 Elevated PSA R97.20
== END 2023-05-03 09:49 | disposition home or self-care (01) ==
PROVIDERS: PCP Internal Medicine; Visit Provider Urology
DX: N20.0 Calculus of kidney (principal); E11.69 Type 2 diabetes mellitus with other specified complication; N52.1 Erectile dysfunction due to diseases classified elsewhere; R97.20 Elevated prostate specific antigen [PSA]
CPT/HCPCS: 99213

== ENCOUNTER → 2023-05-03 09:20 | Outpatient (BNVA) | payer OTHER, SELFPAY | PROVIDERS: PCP Internal Medicine; Visit Provider Urology | DX: N20.0 Calculus of kidney (principal); R97.20 Elevated prostate specific antigen [PSA]; E11.69 Type 2 diabetes mellitus with other specified complication; N52.1 Erectile dysfunction due to diseases classified elsewhere | CPT/HCPCS: 99212 ==

== ENCOUNTER 2023-06-13 13:22 | Outpatient (AMB) | payer OTHER, SELFPAY ==
[2023-06-13 13:24] VITALS: BP 130/82; PULSE 67; O2SAT 97; BMI 49.4
--- NOTE | 2023-06-13 13:24 | A.OFFPC_ITS ---
Vital Signs 06/13/23 13:24 Height 6 ft Weight 364 lb BMI 49.4 BP 130/82 Blood Pressure Location Lt brachial Position Sitting Pulse 67 Pulse Source Pulse Oximeter Pulse Oximetry (%) 97 Oxygen Delivery Method Room Air Intake Visit Reasons: DM follow up Tool Polisher Required: No Allergies metformin Adverse Reaction (Intermediate, Verified 06/13/23 13:25) Diarrhea Medication List - Last Reconciled 06/13/23 by Mara Hurtado, albuterol sulfate 90 mcg/actuation (Ventolin HFA) 2 puffs inhalation Q4-6H PRN amlodipine 5 mg PO DAILY aspirin (Adult Aspirin Regimen) 81 mg PO DAILY clotrimazole 1% 1 appl topical BID 4 weeks codeine-guaifenesin 10-100 mg/5 mL 10 mL PO Q6H PRN [CPAP As directed] empagliflozin 25 mg PO DAILY 90 days ezetimibe (Zetia) 10 mg PO DAILY finasteride 5 mg PO DAILY 90 days guaifenesin ER (Mucinex) 600 mg PO Q12H PRN miconazole nitrate 2% (Zeasorb AF) 1 appl topical DAILY oxycodone 5 mg PO Q6H PRN rosuvastatin 40 mg PO DAILY 90 days semaglutide (Ozempic) 0.25 mg (0.368 mL) subcut QWEEK tamsulosin 0.4 mg PO DAILY 90 days valsartan 320 mg PO DAILY Tobacco use date assessed: 06/13/23 Dental Screening Dental Screen Date: 06/13/23 HPI DM follow up HPI Details 57 year old morbidly obese male with mary ann betes mellitus coronary artery disease obstructive sleep apnea hypertension hypercholesterolemia BPH history of nephrolithiasis coming in for follow-up. Last seen for physical in January 2023. Review of the notes follows up with urology for the elevated PSA had biopsy negative placed on finasteride and tamsulosin. . PSA surveillance. Patient also had a coronary artery CT results Left main N, left anterior descending minimal atherosclerotic calcification lost significant stenosis left circumflex no significant stenosis, right coronary artery minimal scattered eccentric calcification suggestive less than 50% stenosis January 2023 ER visit for shortness of breath diagnosis of bronchitis treated with steroids and antibiotic. concern non weight states sob on exertion, [facility] Medical History PVCs (premature ventricular contractions) Morbid obesity Impaired glucose tolerance Erectile dysfunction Nephrolithiasis Insomnia Coronary artery disease Obstructive sleep apnea BPH (benign prostatic hyperplasia) Hypercholesterolemia Hypertension Surgical History History of prostate biopsy History of colonoscopy History of carpal tunnel surgery of left wrist Family History Father S/P CABG x 1 Prostate cancer Diabetes Hypertension Mother Diabetes Hypertension Sister Hypertension FH: ovarian cancer Social History Housing: House Alcohol intake: never Patient Tobacco Use Status: Never used Tobacco e-Cigarette/Vaping Use: Never Used Second Hand Smoke Exposure: No service: No Current occupational status: employed Cognitive needs: No Hearing needs: No Vision needs: No Questionnaire Thrive Questionnaire Date Thrive assessed: 07/15/22 AUDIT C Alcohol Use Questionnaire (AUDIT-C) 1. How often do you have a drink containing alcohol?: Never 2. How many drinks containing alcohol do you have on a typical day when you are drinking?: 1 or 2 (0) 3. How often do you have six or more drinks on one occasion?: Never Total Score: 0 Score Reviewed/Action Taken: No JM-7 AMB Questionnaire JM-7 Date JM - 7 assessed: 06/13/23 Source: Developed by Drs. Brian Lund, Lyssa Gill, Reji Nunez and colleagues, with an educational kathryn from [employer]. Review of Systems Const Reports as per HPI Physical exam (Primary Care) Vital Signs: Last Vital Signs Pulse 67 06/13/23 13:24 BP 130/82 06/13/23 13:24 Pulse Ox 97 06/13/23 13:24 Oxygen Delivery Method Room Air 06/13/23 13:24 BMI result Body Mass Index 49.4 Tobacco/Smoking Status: Tobacco use Status Tobacco use date assessed 06/13/23 06/13/23 13:28 Patient Tobacco Use Status Never used Tobacco 06/13/23 13:28 e-Cigarette/Vaping Use Never Used 06/13/23 13:28 Thrive Assessment: Date of Thrive Assessment Date Thrive assessed 07/15/22 06/13/23 13:28 Results AMB Hemoglobin A1c AMB Hemoglobin A1c 6.4 % Last Edit by NATHALY Martinez on 06/13/23 13:35 Results Reviewed Results Reviewed: Laboratory Last Values Hgb A1c (Clinic) 6.4 % (4.0-6.0) H 06/13/23 11:27 Assessment and Plan Assessment & Plan (1) Type 2 diabetes mellitus with hyperglycemia: Comment: Target Code(s): E11.65 - Type 2 diabetes mellitus with hyperglycemia Plan: Decrease the amount of carbohydrate intake, pasta, bread, rice and potatoes are all sugar and that is aside from all the sweet stuff, remember that fruits are good but they are Sweet also. Hemoglobin A1c goal of less than 6.5. Patient on Jardiance 25 mg once a day (2) Hypertension: Code(s): I10 - Essential (primary) hypertension Qualifiers: Hypertension type: essential hypertension Qualified Code(s): I10 - Essential (primary) hypertension Plan: Continue with blood pressure medication. Decrease salt intake and exercise presently on valsartan 320 mg once a day amlodipine 5 mg once a day (3) Hypercholesterolemia: Code(s): E78.00 - Pure hypercholesterolemia, unspecified Plan: Avoid fried foods, chicken skin, eggs, butter margarine, pastries and meat. Be it pork or beef they have a lot of cholesterol LDL goal of less than 70 and triglyceride of less than 150 takes rosuvastatin 40 mg once a day Zetia 10 mg once a day (4) Obstructive sleep apnea: Comment: CPAP use Q night > 4 hours Code(s): G47.33 - Obstructive sleep apnea (adult) (pediatric) Plan: Continue to use the CPAP more than 4 hours a night benefits from this (5) Obesity: Code(s): E66.9 - Obesity, unspecified Qualifiers: Obesity type: due to excess calories Obesity classification: adult class 3 (BMI >= 40) Serious obesity comorbidity presence: with serious comorbidity Body mass index: BMI 45.0-49.9 Qualified Code(s): E66.01 - Morbid (severe) obesity due to excess calories; Z68.42 - Body mass index [BMI] 45.0- 49.9, adult Plan: Diet and exercise (6) Coronary artery disease: Comment: Echo June 2018 EF 55-60% nuclear stress negative June 2018, Holter February 23 1019- Code(s): I25.10 - Atherosclerotic heart disease of [place] coronary artery without angina pectoris Qualifiers: Coronary Disease-Associated Artery/Lesion type: [place] artery [place] vs. transplanted heart: [place] heart Associated angina: without angina Qualified Code(s): I25.10 - Atherosclerotic heart disease of [place] coronary artery without angina pectoris Plan: Control the cholesterol, weight, blood pressure, diabetes on aspirin 81 mg once a day (7) BPH w urinary obs/LUTS: Comment: Benign prostate biopsy March [address] Aguirre Code(s): N40.1 - Benign prostatic hyperplasia with lower urinary tract symptoms; N13.8 - Other obstructive and reflux uropathy Plan: Patient is being followed up by Urology on finasteride 5 mg once a day and tamsulosin (8) Nephrolithiasis: Comment: October 2019 left hydronephrosis with renal calculi Octoberiffuse increase in echogenicity of the liver is characteristic of primary hepatocellular disease, possibly due to hepatic steatosis and further limits visualization. 2. Possible tiny scattered right renal calculi versus artifact. No hydronephrosis. 3. Left renal 0.8 cm midpole and 0.3 cm lower pole calculi. No hydronephrosis. Code(s): N20.0 - Calculus of kidney Plan: Keep well hydrated (9) Generalized anxiety disorder: Code(s): F41.1 - Generalized anxiety disorder Orders: Orders AMB Hemoglobin A1c Today E11.65 - Type 2 diabetes mellitus with hyperglycemia Medications: New semaglutide (Ozempic) for 4 weeks 0.25 mg (0.368 mL) subcut QWEEK 3 mL 0RF E11.65 - Type 2 diabetes mellitus with hyperglycemia Discontinued levofloxacin Take day before, day of and day after procedure Discontinued Reason: Patient Completed Course 500 mg PO ONCE 3 tabs 0RF 3 days R97.20 - Elevated prostate specific antigen [PSA] Coding Level of Care Code Est Pt Level 4 (54672) Diagnoses Type 2 diabetes mellitus with hyperglycemia E11.65 Essential hypertension I10 Hypertension type: essential hypertension Hypercholesterolemia E78.00 Obstructive sleep apnea G47.33 Class 3 severe obesity due to excess calories with serious comorbidity and body mass index (BMI) of 45.0 to 49.9 in adult E66.01; Z68.42 Obesity type: due to excess calories Obesity classification: adult class 3 (BMI >= 40) Serious obesity comorbidity presence: with serious comorbidity Body mass index: BMI 45.0-49.9 Coronary artery disease involving [place] coronary artery of [place] heart without angina pectoris I25.10 Coronary Disease-Associated Artery/Lesion type: [place] artery [place] vs. transplanted heart: [place] heart Associated angina: without angina BPH w urinary obs/LUTS N40.1; N13.8 Nephrolithiasis N20.0 Generalized anxiety disorder F41.1
== END 2023-06-13 13:51 | disposition home or self-care (01) ==
PROVIDERS: PCP Internal Medicine; Visit Provider Internal Medicine
DX: E11.65 Type 2 diabetes mellitus with hyperglycemia (principal); E66.01 Morbid (severe) obesity due to excess calories; Z68.42 Body mass index [BMI] 45.0-49.9, adult; I10 Essential (primary) hypertension; E78.00 Pure hypercholesterolemia, unspecified; G47.33 Obstructive sleep apnea (adult) (pediatric); I25.10 Atherosclerotic heart disease of native coronary artery without angina pectoris; N40.1 Benign prostatic hyperplasia with lower urinary tract symptoms; N13.8 Other obstructive and reflux uropathy; N20.0 Calculus of kidney; F41.1 Generalized anxiety disorder
CPT/HCPCS: 83036; 99214

== ENCOUNTER 2023-09-21 11:42 | Outpatient (AMB) | payer OTHER, SELFPAY ==
[2023-09-21 11:42] VITALS: BP 144/76; PULSE 75; O2SAT 94; BMI 50.0
--- NOTE | 2023-09-21 11:42 | A.OFFPC_ITS ---
Vital Signs 09/21/23 11:42 09/21/23 12:20 Height 6 ft Weight 369 lb BMI 50.0 BP 144/76 H 138/80 Blood Pressure Location Lt brachial Lt brachial Position Sitting Sitting Pulse 75 Pulse Source Pulse Oximeter Pulse Oximetry (%) 94 Oxygen Delivery Method Room Air Intake Visit Reasons: Obesity, DM Residence Hall Director Required: No Allergies metformin Adverse Reaction (Intermediate, Verified 09/21/23 11:42) Diarrhea Medication List - Last Reconciled 09/21/23 by Mara Hurtado MD albuterol sulfate 90 mcg/actuation (Ventolin HFA) 2 puffs inhalation Q4-6H PRN amlodipine 5 mg PO DAILY aspirin (Adult Aspirin Regimen) 81 mg PO DAILY clotrimazole 1% 1 appl topical BID 4 weeks codeine-guaifenesin 10-100 mg/5 mL 10 mL PO Q6H PRN [CPAP As directed] dulaglutide (Trulicity) 0.75 mg (0.5 mL) subcut QWEEK empagliflozin 25 mg PO DAILY 90 days ezetimibe 10 mg PO DAILY finasteride 5 mg PO DAILY 90 days guaifenesin ER (Mucinex) 600 mg PO Q12H PRN miconazole nitrate 2% (Zeasorb AF) 1 appl topical DAILY oxycodone 5 mg PO Q6H PRN rosuvastatin 40 mg PO DAILY 90 days tamsulosin 0.4 mg PO DAILY 90 days valsartan 320 mg PO DAILY Tobacco use date assessed: 09/21/23 Dental Screening Dental Screen Date: 06/13/23 HPI Obesity, DM HPI Details 58-year-old morbidly obese male with mary ann betes mellitus hypertension hypercholesterolemia obstructive sleep apnea coronary artery disease BPH and generalized anxiety disorder coming in for follow-up last seen 06/13/2023. Review of the notes has seen Nephrology diagnosis of proteinuria in the setting of diabetic nephropathy and glomerular filtration creatinine good Jardiance as well as valsartan continue and importance of weight loss PFSH Medical History PVCs (premature ventricular contractions) Morbid obesity Impaired glucose tolerance Erectile dysfunction Nephrolithiasis Insomnia Coronary artery disease Obstructive sleep apnea BPH (benign prostatic hyperplasia) Hypercholesterolemia Hypertension Surgical History History of prostate biopsy History of colonoscopy History of carpal tunnel surgery of left wrist Family History Father S/P CABG x 1 Prostate cancer Diabetes Hypertension Mother Diabetes Hypertension Sister Hypertension FH: ovarian cancer Social History Housing: House Alcohol intake: never Patient Tobacco Use Status: Never used Tobacco e-Cigarette/Vaping Use: Never Used Second Hand Smoke Exposure: No service: No Current occupational status: employed Cognitive needs: No Hearing needs: No Vision needs: No Questionnaire Thrive Questionnaire Date Thrive assessed: 09/21/23 AUDIT C Alcohol Use Questionnaire (AUDIT-C) 1. How often do you have a drink containing alcohol?: Never 2. How many drinks containing alcohol do you have on a typical day when you are drinking?: 1 or 2 (0) 3. How often do you have six or more drinks on one occasion?: Never Total Score: 0 Score Reviewed/Action Taken: No JM-7 AMB Questionnaire JM-7 Date JM - 7 assessed: 06/13/23 Source: Developed by Drs. Brian Lund, Lyssa Gill, Reji Nunez and colleagues, with an educational kathryn from [employer]. Physical exam (Primary Care) Vital Signs: Last Vital Signs Pulse 75 09/21/23 11:42 BP 138/80 09/21/23 12:20 Pulse Ox 94 09/21/23 11:42 Oxygen Delivery Method Room Air 09/21/23 11:42 BMI result Body Mass Index 50.0 Tobacco/Smoking Status: Tobacco use Status Tobacco use date assessed 09/21/23 09/21/23 11:43 Patient Tobacco Use Status Never used Tobacco 09/21/23 11:43 e-Cigarette/Vaping Use Never Used 09/21/23 11:43 Thrive Assessment: Date of Thrive Assessment Date Thrive assessed 09/21/23 09/21/23 11:43 Const General: alert; No acute distress Eyes Conjunctivae: conjunctivae normal Resp Auscultation: clear to auscultation bilaterally Cardio Rate: regular rate Rhythm: regular rhythm GI Inspection: Yes normal to inspection Extrem General: Yes normal to inspection and No edema Results AMB Hemoglobin A1c AMB Hemoglobin A1c 6.9 % Last Edit by NATHALY Martinez on 09/21/23 11:59 Results Reviewed Results Reviewed: Laboratory Last Values Hgb A1c (Clinic) 6.9 % (4.0-6.0) H 09/21/23 11:12 Assessment and Plan Assessment & Plan (1) Type 2 diabetes mellitus with hyperglycemia: Comment: Target, Eye and lasik Code(s): E11.65 - Type 2 diabetes mellitus with hyperglycemia Plan: Decrease the amount of carbohydrate intake, pasta, bread, rice and potatoes are all sugar and that is aside from all the sweet stuff, remember that fruits are good but they are Sweet also. Hemoglobin A1c goal of less than 6.5. Patient on Jardiance 25 mg once a day not approved ozempic. Will try Trulicity (2) Morbid obesity: Code(s): E66.01 - Morbid (severe) obesity due to excess calories Plan: Patient has been started on Ozempic butwas not approved. Had a long discussion with the patient with regards to keeping active to lose the weight encouraged patient to move every day. (3) Coronary artery disease: Comment: Echo June 2018 EF 55-60% nuclear stress negative June 2018, Holter February 23 1019- Code(s): I25.10 - Atherosclerotic heart disease of [place] coronary artery without angina pectoris Qualifiers: Associated angina: without angina Coronary Disease-Associated Artery/Lesion type: [place] artery [place] vs. transplanted heart: [place] heart Qualified Code(s): I25.10 - Atherosclerotic heart disease of [place] coronary artery without angina pectoris Plan: Control the cholesterol, weight, blood pressure, diabetes and on aspirin 81 mg once a day (4) Obstructive sleep apnea: Comment: CPAP use Q night > 4 hours Code(s): G47.33 - Obstructive sleep apnea (adult) (pediatric) Plan: Continue to use the CPAP more than 4 hours a night and benefits from this (5) Hypertension: Code(s): I10 - Essential (primary) hypertension Qualifiers: Hypertension type: essential hypertension Qualified Code(s): I10 - Essential (primary) hypertension Plan: Continue with blood pressure medication. Decrease salt intake and exercise on amlodipine 5 mg once a day valsartan 320 mg once a day (6) Hypercholesterolemia: Code(s): E78.00 - Pure hypercholesterolemia, unspecified Plan: Avoid fried foods, chicken skin, eggs, butter margarine, pastries and meat. Be it pork or beef they have a lot of cholesterol will need repeat testing on Zetia 10 mg once a day and rosuvastatin 40 mg once a day. 11/10/2022 last blood work. Orders: Orders Free T4 (Free Thyroxine) 1 Month E11.65 - Type 2 diabetes mellitus with hyperglycemia Thyroid Stimulating Hormone 1 Month E11.65 - Type 2 diabetes mellitus with hyperglycemia Microalbumin, Random (w Creat) 1 Month E11.65 - Type 2 diabetes mellitus with hyperglycemia Creatinine Urine 1 Month E11.65 - Type 2 diabetes mellitus with hyperglycemia AMB Hemoglobin A1c Today E11.65 - Type 2 diabetes mellitus with hyperglycemia Complete Blood Count Auto Diff 1 Month E11.65 - Type 2 diabetes mellitus with hyperglycemia Comprehensive Met. Panel 1 Month E11. - Type 2 diabetes mellitus with hyperglycemia Lipid Panel 1 Month E11.65 - Type 2 diabetes mellitus with hyperglycemia, E78.00 - Pure hypercholesterolemia, unspecified Vitamin B12 and Folate 1 Month E11.65 - Type 2 diabetes mellitus with hyperglycemia Prostate Specific Antigen Scr 1 Month E11.65 - Type 2 diabetes mellitus with hyperglycemia Medications: New dulaglutide (Trulicity) 0.75 mg (0.5 mL) subcut QWEEK 2 mL 4RF E11.65 - Type 2 diabetes mellitus with hyperglycemia Refilled ezetimibe 10 mg PO DAILY 90 tabs 1RF E78.00 - Pure hypercholesterolemia, unspecified Discontinued semaglutide (Ozempic) for 4 weeks Discontinued Reason: Insurance Denied 0.25 mg (0.368 mL) subcut QWEEK 3 mL 0RF E11.65 - Type 2 diabetes mellitus with hyperglycemia Coding Level of Care Code Est Pt Level 4 (62679) Complex EM visit Add On G2211 Diagnoses Type 2 diabetes mellitus with hyperglycemia E11.65 Morbid obesity E66.01 Coronary artery disease involving [place] coronary artery of [place] heart without angina pectoris I25.10 Associated angina: without angina Coronary Disease-Associated Artery/Lesion type: [place] artery [place] vs. transplanted heart: [place] heart Obstructive sleep apnea G47.33 Essential hypertension I10 Hypertension type: essential hypertension Hypercholesterolemia E78.00
[2023-09-21 12:20] VITALS: BP 138/80
== END 2023-09-21 12:26 | disposition home or self-care (01) ==
PROVIDERS: PCP Internal Medicine; Visit Provider Internal Medicine
DX: E11.65 Type 2 diabetes mellitus with hyperglycemia (principal); E66.01 Morbid (severe) obesity due to excess calories; Z68.43 Body mass index [BMI] 50.0-59.9, adult; I25.10 Atherosclerotic heart disease of native coronary artery without angina pectoris; G47.33 Obstructive sleep apnea (adult) (pediatric); I10 Essential (primary) hypertension; E78.00 Pure hypercholesterolemia, unspecified
CPT/HCPCS: 83036; 99214; G2211

== ENCOUNTER 2023-10-18 11:01 | Outpatient (REF) | payer OTHER, SELFPAY | END 2023-10-18 11:02 | disposition home or self-care (01) | LOC: HO.LAB 11:01 | PROVIDERS: PCP Internal Medicine; Visit Provider Urology | DX: E11.65 Type 2 diabetes mellitus with hyperglycemia (principal); Z12.5 Encounter for screening for malignant neoplasm of prostate | CPT/HCPCS: 36415; 84153 ==

== ENCOUNTER 2023-10-25 08:34 | Outpatient (AMB) | payer OTHER, SELFPAY ==
--- NOTE | 2023-10-25 08:34 | MHC.OFFVIS ---
Intake Visit Reasons: 6M PSA/Free/Total(set) Intake Note: Patient is Present for Telephone Follow Up PSA Urology Med: Finasteride, Tamsulosin Antibiotic Allergy:None Blood Thinner: Aspirin Linux Developer Required: No Allergies metformin Adverse Reaction (Intermediate, Verified 10/25/23 08:35) Diarrhea Medication List - Last Reconciled 10/25/23 by Melchor Aguirre MD albuterol sulfate 90 mcg/actuation (Ventolin HFA) 2 puffs inhalation Q4-6H PRN amlodipine 5 mg PO DAILY aspirin (Adult Aspirin Regimen) 81 mg PO DAILY clotrimazole 1% 1 appl topical BID 4 weeks codeine-guaifenesin 10-100 mg/5 mL 10 mL PO Q6H PRN [CPAP As directed] dulaglutide (Trulicity) 0.75 mg (0.5 mL) subcut QWEEK empagliflozin 25 mg PO DAILY 90 days ezetimibe 10 mg PO DAILY finasteride 5 mg PO DAILY 90 days guaifenesin ER (Mucinex) 600 mg PO Q12H PRN miconazole nitrate 2% (Zeasorb AF) 1 appl topical DAILY oxycodone 5 mg PO Q6H PRN rosuvastatin 40 mg PO DAILY 90 days tamsulosin 0.4 mg PO DAILY 90 days valsartan 320 mg PO DAILY HPI Comments Details: Michael JO is a very pleasant male. They are a patient of Dr Hurtado. They are seen in the office today for the following urologic conditions. - elevated PSA - lower urinary tract symptoms - erectile dysfunction Telemedicine Evaluation 15 min Consultation [employer] Significant drop PSA from 9.3-1.0 this is now back in its typical range. Good response to sildenafil 100 mg Elevated PSA/Abnormal KESHAV: check in 6 months He presents for further evaluation of elevated - s/p TRUS - negative. Current management is observation. Laboratory investigations include 02/07 4.0 10/09 2.7 11/09 2.9 12/11 6.6, 06/14 1.6 on finasteride, 11/11 1.4, 06/15 1.3, 11/12 1.0, 01/14 9.3, 10/15 1.0 Imaging investigations include a transrectal ultrasound Yes Date 02/2017 Prostate Volume 60 Individualized Prostate Cancer Risk Calculator 5-10% high risk,. A TRUS biopsy has been performed and is negative 11/17 Symptoms include nocturia, x 3, and are stable. Therapeutic plan will be continued surveillance Lower Urinary Tract Symptoms: Current visit is for further evaluation of, predominate obstructive symptoms. Current treatment includes medication, alpha teresa - good response. Prostate Symptom Score Mild (0-8), Bother 3. Symptoms include / , weak stream, and are progressing 11/08 improved voiding. Prior Prostate Score unknown. Prostate volume 30-50gm. Testing at next visit will include bladder scan. Treatment plan continue with current medications . Erectile dysfunction: Good response to 100 mg sildenafil He presents today for for continued evaluation and management of erectile dysfunction. Symptoms have been present for/since ongoing. Current treatment includes medications. At this time he experiences erections are partial and adequate for vaginal penetration, that undergo rapid detumesence after penetration, YOLA 8-11 Moderate ED. Currently they are in a stable relationship. Therapeutic plan includes increasing dose of oral medication PFSH Medical History PVCs (premature ventricular contractions) Morbid obesity Impaired glucose tolerance Erectile dysfunction Nephrolithiasis Insomnia Coronary artery disease Obstructive sleep apnea BPH (benign prostatic hyperplasia) Hypercholesterolemia Hypertension Surgical History History of prostate biopsy History of colonoscopy History of carpal tunnel surgery of left wrist Family History Father S/P CABG x 1 Prostate cancer Diabetes Hypertension Mother Diabetes Hypertension Sister Hypertension FH: ovarian cancer Social History Housing: House Alcohol intake: never Patient Tobacco Use Status: Never used Tobacco e-Cigarette/Vaping Use: Never Used Second Hand Smoke Exposure: No service: No Current occupational status: employed Cognitive needs: No Hearing needs: No Vision needs: No Review of Systems Const All systems reviewed & are unremarkable except as noted in HPI and below Reports no additional complaints Resp Reports no additional complaints GI Reports no additional complaints Reports as per HPI Musc Reports no additional complaints Physical Exam Telemedicine evaluation Appropriate responses Regular breathing rate and rhythm HEENT Head: Yes normal to inspection Ears: hearing grossly normal bilaterally Eyes General: appearance normal, both eyes and all related structures Neck Neck: Yes normal visual inspection Chest Chest palpation & inspection: normal inspection of the chest Resp Effort & Inspection: normal respiratory effort and able to speak in complete sentences Telehealth Telehealth Telehealth Platform: [employer] Location of provider rendering services: practice address Location of patient: address on file Patient Identification confirmed using: Name, : Yes Telehealth method: video Patient verbally consented to treatment: Yes Patient verbally consented to billing insurance company: Yes Patient informed of any privacy concerns related to visit: Yes Minutes spent on Phone/Video with Pt.: 15 Assessment & Plan Assessment & Plan (1) Nephrolithiasis: Comment: October 2019 left hydronephrosis with renal calculi Octoberiffuse increase in echogenicity of the liver is characteristic of primary hepatocellular disease, possibly due to hepatic steatosis and further limits visualization. 2. Possible tiny scattered right renal calculi versus artifact. No hydronephrosis. 3. Left renal 0.8 cm midpole and 0.3 cm lower pole calculi. No hydronephrosis. Code(s): N20.0 - Calculus of kidney Category: Medical (2) BPH w urinary obs/LUTS: Comment: Benign prostate biopsy March [address]23 Dr. Aguirre Code(s): N40.1 - Benign prostatic hyperplasia with lower urinary tract symptoms; N13.8 - Other obstructive and reflux uropathy Category: Medical Plan Twelve month follow-up renal ultrasound and PSA Orders: Orders Prostate Specific Antigen 364 Days N13.8 - Other obstructive and reflux uropathy, N40.1 - Benign prostatic hyperplasia with lower urinary tract symptoms US renal BI 12 Months N20.0 - Calculus of kidney Patient Instructions: Imaging studies, laboratory and physical exam results were discussed and reviewed in detail. No major barriers to patient understanding were identified. An opportunity to ask questions regarding the treatment plan was provided. All questions were answered. The patient expressed understanding and agreement with the above treatment plan. The patient is aware they should contact our office by phone for worsening of their current condition or the appearance of new urologic symptoms. Compliance is encouraged with any medications and followup testing that is ordered. It is a privilege to participate in the urologic care of your patient. If you have any questions or concerns regarding treatment for the above conditions, or other urologic issues, please do not hesitate to contact me. The office telephone contact is [phone]. This note is constructed using voice recognition software. While every effort has been made to ensure accuracy grain spouter errors may have been included. Yours sincerely, Dr Melchor Aguirre MD, [facility] - Urology Providers of Expert, Compassionate Care for the Genitourinary System Coding Level of Care Code Tele Est Pt Level 3 (87659) Diagnoses Nephrolithiasis N20.0 BPH w urinary obs/LUTS N40.1; N13.8
== END 2023-10-25 09:21 | disposition home or self-care (01) ==
LOC: HO.HUSH 08:34
PROVIDERS: PCP Internal Medicine; Visit Provider Urology
DX: N20.0 Calculus of kidney (principal); N40.1 Benign prostatic hyperplasia with lower urinary tract symptoms; N13.8 Other obstructive and reflux uropathy
CPT/HCPCS: 99213

== ENCOUNTER → 2023-10-25 08:34 | Outpatient (BNVA) | payer OTHER, SELFPAY | PROVIDERS: PCP Internal Medicine; Visit Provider Urology ==

== ENCOUNTER 2024-11-04 08:42 | Outpatient (REF) | payer OTHER, SELFPAY ==
--- NOTE | ~2024-11-04 | US_ITS ---
EXAMINATION: US KIDNEY BILATERAL HISTORY: N20.0 - Calculus of kidney TECHNIQUE: Real-time grayscale ultrasound imaging of the kidneys was performed and images were reviewed. COMPARISON: Correlation is made with an abdominal ultrasound dated 11/18/2022. FINDINGS: Right kidney: The right kidney measures 12.2 x 5.8 x 6.8 cm. Renal parenchymal echotexture and thickness are normal. There is a 1.5 x 0.8 x 1.3 cm cyst at the upper pole. There is a 3 mm echogenic focus at the upper pole which may represent a calculus. There is no hydronephrosis. Left Kidney: The left kidney measures 11.9 x 5.3 x 5.5 cm. Renal parenchymal echotexture and thickness are normal. There is a 1.3 x 1.0 x 1.2 cm cyst at the upper pole and a 1.4 x 1.3 x 0.9 cm cyst in the interpolar region. There is a 3 mm nonobstructing calculus at the lower pole and a 9 x 6 x 6 mm nonobstructing calculus in the interpolar region. There is no hydronephrosis. US/US renal BI IMPRESSION: Bilateral nephrolithiasis as described. Electronically signed by: Brian Jo MD 11/04/2024 09:18 AM EDT
--- OUTSIDE RECORDS SUMMARY | 2024-11-04 08:47 | XMS_ITS | Clinical Summary ---
Author Organization [facility] Address [address] [address] Phone Care Team Providers Care Fortune Teller Name Role Phone Mara Hurtado MD Primary Care Provider [phone] Allergies No known active allergies Medications albuterol HFA (PROVENTIL HFA;VENTOLIN HFA) 108 (90 Base) MCG/ACT inhaler Inhale 2 puffs every 6 (six) hours if needed for wheezing Active valsartan (DIOVAN) 320 MG tablet Take 320 mg by mouth 1 (one) time each day Active finasteride (PROSCAR) 5 MG tablet Take 5 mg by mouth 1 (one) time each day Do not crush, chew, or split. Active ezetimibe (ZETIA) 10 MG tablet Take 10 mg by mouth 1 (one) time each day Active rosuvastatin (CRESTOR) 40 MG tablet Take 40 mg by mouth 1 (one) time each day Active aspirin (ST ARANZA) 81 MG EC tablet Take 81 mg by mouth 1 (one) time each day Active amLODIPine (NORVASC) 5 MG tablet Take 5 mg by mouth 1 (one) time each day Active tamsulosin (FLOMAX) 0.4 MG 24 hr capsule Take 0.4 mg by mouth 1 (one) time each day Active Empagliflozin (Jardiance) 10 MG tablet Take 10 mg by mouth 1 (one) time each day in the morning Active Active Problems Problem Noted Date Diagnosed Date Proteinuria 12/19/2022 Essential hypertension 12/19/2022 Family History Medical History Relation Comments Diabetes Father Hypertension Father Cancer Mother Diabetes Mother Heart disease Mother Hypertension Mother Hypertension Sister Relation Status Comments Father Mother Sister Social History Tobacco Use Types Packs/Day Years Used Date Smoking Tobacco: Never Smokeless Tobacco: Never Tobacco Cessation:Counseling Given: Not Answered Alcohol Use Standard Drinks/Week Comments Never 0 (1 standard drink = 0.6 oz pur e alcohol) Sex and Gender Information Value Date Recorded Sex Assigned at Not on file Legal Sex Male 11:28 AM EDT Gender Identity Not on file Sexual Orientation Not on file Last Filed Vital Signs Vital Sign Reading Time Taken Comments Blood Pressure 130/80 06/22/2023 12:43 PM EST Pulse 71 06/22/2023 12:43 PM EST Temperature - - Respiratory Rate - - Oxygen Saturation 97% 06/22/2023 12:43 PM EST Inhaled Oxygen Concentration - - Weight 166 kg (367 lb) 06/22/2023 12:43 PM EST Height - - Body Mass Index - - Plan of Treatment Health Maintenance Due Date Last Done Comments Hepatitis B Vaccine (1 of 3 - 19+ 3-dose series) 09/05 Pneumococcal Vaccine: 50+ Years (1 of 2 - PCV) 987 Colorectal Cancer Screening: Annual FOBT 09/05/2016 Colorectal Cancer Screening: Colonoscopy 09/05/2016 Colorectal Cancer Screening: Sigmoidoscopy 09/05/2016 Influenza Vaccine (#1) 2024 Insurance [facility] Medicaid [facility] Medicaid Care Teams Fortune Teller Relationship Specialty Start Date End Date Mara Hurtado MD [facility] [address] [place], [place] PCP - General Internal Medicine 11/25/22
== END 2024-11-04 08:43 | disposition home or self-care (01) ==
LOC: HO.US 08:42
PROVIDERS: PCP Internal Medicine; Visit Provider Urology
DX: N20.0 Calculus of kidney (principal)
CPT/HCPCS: 76775

== ENCOUNTER → 2024-11-04 08:44 | Outpatient (BNV) | payer OTHER, SELFPAY | PROVIDERS: PCP Internal Medicine; Visit Provider Radiology Diagnostic Radiology | DX: N20.0 Calculus of kidney (principal) | CPT/HCPCS: 76775 ==

== ENCOUNTER 2024-12-04 09:24 | Outpatient (REF) | payer OTHER, SELFPAY ==
[2024-12-04 09:40] LABS: MANUAL DIFF FLAG NO
--- OUTSIDE RECORDS SUMMARY | 2024-12-04 09:50 | XMS_ITS | Clinical Summary ---
Author Organization [facility] Address [address] [address] Phone Care Team Providers Care Fingerprint Technician Name Role Phone Mara Hurtado MD Primary Care Provider [phone] Allergies No known active allergies Medications albuterol [...] Sigmoidoscopy 09/05/2016 Influenza Vaccine (#1) 2024 Insurance [facility] Medicaid [facility] Medicaid Care Teams Fingerprint Technician Relationship Specialty Start Date End Date Mara Hurtado MD [facility] [address] [place], [place] PCP - General Internal Medicine 11/25/22
[2024-12-04 10:43] LABS: Hematocrit 47.1 % (42.0-52.0); Hemoglobin 15.3 g/dl (14.0-18.0); Imm Gran Abs Auto 0.02 X10*3/uL (0.00-0.03); Imm Gran Pct Auto 0.2 % (0.0-0.4); Lymphocytes Absolute Auto 2.1 X10*3/uL (1.2-4.9); Mean Corpuscular HGB Conc 32.5 g/dl (31.0-36.0); Mean Corpuscular Hemoglobin 28.2 pg (27.0-33.0); Mean Corpuscular Volume 86.9 fL (80.0-98.0); NRBC Abs Auto 0.000 X10*3/uL (0.0-0.012); NRBC Pct Auto 0.0 /100WBC (0.0-0.2); Platelet Count 277 X10*3/uL (160-400); Red Blood Count 5.42 X10*6/uL (4.60-5.80); White Blood Count 9.0 X10*3/uL (4.8-10.8)
[2024-12-04 11:25] LABS: Hemoglobin A1C 372.5957 umol/L; Total Hemoglobin (HGBA1C) 5765.4090 umol/L
[2024-12-04 11:31] LABS: Alanine Aminotransferase 46 U/L (0-40); Albumin Level 3.8 g/dL (3.5-5.0); Alkaline Phosphatase 95 U/L (39-117); Anion Gap 13 (12-20); Aspartate Amino Transferase 44 U/L (5-37); Blood Urea Nitrogen 17 mg/dL (9-16); Calcium 9.1 mg/dL (8.4-10.2); Carbon Dioxide 30 mmol/L (22-29); Chloride 101 mmol/L (96-108); Cholesterol 174 mg/dL (<200); Estimated Glomerular Filt Rate > 60; HDL Cholesterol 34 mg/dL (>40); Potassium 4.0 mmol/L (3.3-5.1); Sodium 140 mmol/L (135-145); Total Protein 7.5 g/dL (6.5-8.0); Triglycerides 141 mg/dL (<150)
[2024-12-04 11:53] LABS: Folate 8.1 ng/mL (> or = 4.0); Free T4 (Free Thyroxine) 1.05 ng/dL (0.71-1.85); Thyroid Stimulating Hormone 2.11 uIU/mL (0.32-4.0); Vitamin B12 352 pg/mL (200-900)
[2024-12-04 12:24] LABS: Microalbum/Creatinine Ratio Ur 612.7 ug/mg cr (<30)
== END 2024-12-04 09:25 | disposition home or self-care (01) ==
LOC: HO.LAB 09:24
PROVIDERS: Absent Provider Urology; PCP Internal Medicine; Visit Provider Internal Medicine
DX: Z12.5 Encounter for screening for malignant neoplasm of prostate (principal); E11.65 Type 2 diabetes mellitus with hyperglycemia; E78.00 Pure hypercholesterolemia, unspecified; E66.01 Morbid (severe) obesity due to excess calories; K76.0 Fatty (change of) liver, not elsewhere classified; N20.0 Calculus of kidney; N40.1 Benign prostatic hyperplasia with lower urinary tract symptoms; N13.8 Other obstructive and reflux uropathy; I25.10 Atherosclerotic heart disease of native coronary artery without angina pectoris; F41.1 Generalized anxiety disorder; M25.521 Pain in right elbow; I10 Essential (primary) hypertension
CPT/HCPCS: 36415; 80053; 80061; 82043; 82570; 82607; 82746; 83036; 84153; 84439; 84443; 85025

== ENCOUNTER 2024-12-04 09:47 | Outpatient (AMB) | payer OTHER, SELFPAY ==
--- NOTE | 2024-12-04 09:56 | A.OFFPC_ITS ---
Vital Signs 12/04/24 09:58 Height 6 ft Weight 362 lb BMI 49.1 BP 120/70 Blood Pressure Location Lt brachial Position Sitting Pulse 74 Pulse Source Pulse Oximeter Temp 97.1 F Temp Source Temporal Artery Scan Pulse Oximetry (%) 95 Oxygen Delivery Method Room Air Intake Visit Reasons: follow up , MED review Intake Note: Patient is here to follow up on Med review. Cfd Engineer Required: No Call Specialist: Not Required per policy Accompanied by: Self / Same As Patient Allergies metformin Adverse Reaction (Intermediate, Verified 12/04/24 09:57) Diarrhea Medication List - Last Reconciled 12/04/24 by Mara Hurtado MD albuterol sulfate 90 mcg/actuation (Ventolin HFA) 2 puffs inhalation Q4-6H PRN amlodipine 5 mg PO DAILY aspirin (Adult Aspirin Regimen) 81 mg PO DAILY 90 days clotrimazole 1% 1 appl topical BID 4 weeks [CPAP As directed] empagliflozin 25 mg PO DAILY 90 days ezetimibe 10 mg PO DAILY finasteride 5 mg PO DAILY 90 days miconazole nitrate 2% (Zeasorb AF) 1 appl topical DAILY rosuvastatin 40 mg PO DAILY 90 days tamsulosin 0.4 mg PO DAILY 90 days tirzepatide (Mounjaro) 2.5 mg (0.5 mL) subcut QWEEK valsartan 320 mg PO DAILY Tobacco use date assessed: 12/04/24 Dental Screening Dental Screen Date: 12/04/24 Did you have a dental visit in the last 12 months?: Yes Did you have a dental problem in the last 6 months where you did not have access to dental care?: No Was dental information given to patient?: Patient has dentist [facility] Medical History PVCs (premature ventricular contractions) Morbid obesity Impaired glucose tolerance Erectile dysfunction Nephrolithiasis Insomnia Coronary artery disease Obstructive sleep apnea BPH (benign prostatic hyperplasia) Hypercholesterolemia Hypertension Surgical History History of prostate biopsy History of colonoscopy History of carpal tunnel surgery of left wrist Family History (Updated 12/04/24 @ 09:56 by NATHALY Clayton) Father S/P CABG x 1 Prostate cancer Diabetes Hypertension Mother Diabetes Hypertension Sister Hypertension FH: ovarian cancer Social History Housing: House Alcohol intake: never Patient Tobacco Use Status: Never used Tobacco e-Cigarette/Vaping Use: Never Used Second Hand Smoke Exposure: No service: No Current occupational status: employed Cognitive needs: No Hearing needs: No Vision needs: Yes (Glasses) Questionnaire PHQ-9 Over the last 2 weeks, how often have you been bothered by any of the following problems? 1. Little interest or pleasure in doing things: not at all 2. Feeling down, depressed, or hopeless: not at all 3. Trouble falling or staying asleep, or sleeping too much: several days 4. Feeling tired or having little energy: more than half the days 5. Poor appetite or overeating: not at all 6. Feeling bad about yourself - or that you are a failure or have let yourself or your family down: not at all 7. Trouble concentrating on things, such as reading the newspaper or watching television: not at all 8. Moving or speaking so slowly that other people could have noticed. Or the opposite - being so fidgety or restless that you have been moving around a lot more than usual: not at all 9. Thoughts that you would be better off or of hurting yourself in some way: not at all Total score: 3 Depression Screening Interpretation: Positive Depression Screening Done: Yes Source: Developed by Drs. Brian Lund, Lyssa Gill, Reji Nunez and colleagues, with an educational kathryn from [employer]. Thrive Questionnaire Date Thrive assessed: 12/04/24 I am a: Patient What is your living situation today?: I have a steady place to live Within the past 12 months, did the food you bought not last and you didn't have the money to get more?: I choose not to answer this question Within the past 12 months, did you worry whether your food would run out before you got money to buy more?: I choose not to answer this question Do you have trouble paying for medicines?: Yes Do you have trouble getting transportation to medical appointments?: No Do you have trouble paying your heating and electricity bill?: I choose not to answer this question Do you have trouble taking care of your child, family member or friend?: I choose not to answer this question Do you have trouble with day-to-day activities such as bathing, preparing meals, shopping, managing finances, etc.?: I choose not to answer this question Are you currently unemployed and looking for a job?: No Are you interested in more education?: No Please select the resources that you would like help with: Paying for medicine Currently or been in a relationship where the following occur: No concerns reported THRIVE Score: 0 AUDIT C Alcohol Use Questionnaire (AUDIT-C) 1. How often do you have a drink containing alcohol?: Never Total Score: 0 JM-7 AMB Questionnaire JM-7 Date JM - 7 assessed: 12/04/24 Feeling nervous, anxious, or on edge: 0 = Not at all Not being able to stop or control worryin = Not at all Worrying too much about different things: 0 = Not at all Trouble relaxin = Not at all Being so restless that it is hard to sit still: 0 = Not at all Becoming easily annoyed or irritable: 0 = Not at all Feeling afraid as if something awful might happen: 0 = Not at all Total JM-7 score (0-4 normal; 5-9 mild; 10-14 moderate; 15-21 severe): 0 Source: Developed by Drs. Brian Lund, Lyssa Gill, Reji Nunez and colleagues, with an educational kathryn from [employer]. Physical exam (Primary Care) Vital Signs: Last Vital Signs Temp 97.1 F 12/04/24 09:58 Pulse 74 12/04/24 09:58 BP 120/70 12/04/24 09:58 Pulse Ox 95 12/04/24 09:58 Oxygen Delivery Method Room Air 12/04/24 09:58 BMI result Body Mass Index 49.1 Tobacco/Smoking Status: Tobacco use Status Tobacco use date assessed 12/04/24 12/04/24 10:04 Patient Tobacco Use Status Never used Tobacco 12/04/24 10:04 e-Cigarette/Vaping Use Never Used 12/04/24 10:04 PHQ-9: PHQ-9 Score PHQ-9: Total score 3 12/04/24 10:36 Depression Screening Interpretation: Positive Thrive Assessment: Date of Thrive Assessment Date Thrive assessed 12/04/24 12/04/24 10:04 Currently or been in a relationship where the following occur: No concerns reported Const General: alert; No acute distress Eyes Conjunctivae: conjunctivae normal Resp Auscultation: clear to auscultation bilaterally Cardio Rate: regular rate Rhythm: regular rhythm GI Inspection: Yes normal to inspection Extrem General: Yes normal to inspection and No edema Coding Level of Care Code Est Pt Level 4 (78186) Complex EM visit Add On G2211 Diagnoses Type 2 diabetes mellitus with hyperglycemia E11.65 Morbid obesity E66.01 Fatty liver K76.0 Nephrolithiasis N20.0 BPH w urinary obs/LUTS N40.1; N13.8 Essential hypertension I10 Hypertension type: essential hypertension Coronary artery disease involving [place] coronary artery of [place] heart without angina pectoris I25.10 Associated angina: without angina Coronary Disease-Associated Artery/Lesion type: [place] artery [place] vs. transplanted heart: [place] heart Hypercholesterolemia E78.00 Generalized anxiety disorder F41.1 Right elbow pain M25.521 Assessment & Plan Assessment & Plan (1) Type 2 diabetes mellitus with hyperglycemia: Comment: Target, Eye and lasik Code(s): E11.65 - Type 2 diabetes mellitus with hyperglycemia Category: Medical Plan: Decrease the amount of carbohydrate intake, pasta, bread, rice and potatoes are all sugar and that is aside from all the sweet stuff, remember that fruits are good but they are Sweet also. Hemoglobin A1c goal of less than 6.5. Patient on Trulicity 0.75 once a week Jardiance 25 mg once a day (2) Morbid obesity: Code(s): E66.01 - Morbid (severe) obesity due to excess calories Category: Medical Plan: Diet and exercise (3) Fatty liver: Comment: Octoberiffuse increase in echogenicity of the liver is characteristic of primary hepatocellular disease, possibly due to hepatic steatosis and further limits visualization. 2. Possible tiny scattered right renal calculi versus artifact. No hydronephrosis. 3. Left renal 0.8 cm midpole and 0.3 cm lower pole calculi. No hydronephrosis. Code(s): K76.0 - Fatty (change of) liver, not elsewhere classified Category: Medical Plan: Low-fat diet and exercise (4) Nephrolithiasis: Comment: October 2019 left hydronephrosis with renal calculi Susan 2023Diffuse increase in echogenicity of the liver is characteristic of primary hepatocellular disease, possibly due to hepatic steatosis and further limits visualization. 2. Possible tiny scattered right renal calculi versus artifact. No hydronephrosis. 3. Left renal 0.8 cm midpole and 0.3 cm lower pole calculi. No hydronephrosis. Code(s): N20.0 - Calculus of kidney Category: Medical Plan: Recent ultrasound September 2024 reveals bilateral renal cyst and bilateral renal calculi 3 mm size (5) BPH w urinary obs/LUTS: Comment: Benign prostate biopsy March [address]23 [address] Aguirre Code(s): N40.1 - Benign prostatic hyperplasia with lower urinary tract symptoms; N13.8 - Other obstructive and reflux uropathy Category: Medical Plan: Continue to follow-up with urology on tamsulosin and finasteride (6) Hypertension: Code(s): I10 - Essential (primary) hypertension Category: Medical Qualifiers: Hypertension type: essential hypertension Qualified Code(s): I10 - Essential (primary) hypertension Plan: Continue with blood pressure medication. Decrease salt intake and exercise patient takes amlodipine 5 mg once a day and valsartan 320 mg once a day (7) Coronary artery disease: Comment: Echo June 2018 EF 55-60% nuclear stress negative June 2018, Holter February 23 1019- Code(s): I25.10 - Atherosclerotic heart disease of [place] coronary artery without angina pectoris Category: Medical Qualifiers: Associated angina: without angina Coronary Disease-Associated Artery/Lesion type: [place] artery [place] vs. transplanted heart: [place] heart Qualified Code(s): I25.10 - Atherosclerotic heart disease of [place] coronary artery without angina pectoris Plan: Control the cholesterol, weight, blood pressure, diabetes continue with aspirin 81 mg once a day (8) Hypercholesterolemia: Code(s): E78.00 - Pure hypercholesterolemia, unspecified Category: Medical Plan: Avoid fried foods, chicken skin, eggs, butter margarine, pastries and meat. Be it pork or beef they have a lot of cholesterol LDL goal of less than 70 and triglyceride of less than 150. Patient is on Zetia and rosuvastatin. Blood work is pending (9) Generalized anxiety disorder: Code(s): F41.1 - Generalized anxiety disorder Category: Medical Plan: Continue with present medication (10) Right elbow pain: Code(s): M25.521 - Pain in right elbow Category: Medical Plan History of Present Illness The patient is a 59-year-old male presenting with a follow-up for chronic conditions and preventative care. He has a history of hypertension, hypercholesterolemia, obstructive sleep apnea managed with CPAP, coronary artery disease, anxiety disorder, and benign prostatic hyperplasia. The patient also has diabetes mellitus, which is currently being managed with medication and lifestyle modifications. The patient was last seen in August 2023 and had a colonoscopy in 2018. An ultrasound performed on November 04 revealed bilateral nephrolithiasis with 3 mm stones in both kidneys and a left renal cyst. He has been following up with urology since October 24 and is on finasteride and tamsulosin for benign prostatic hyperplasia. The patient reports a 7-pound weight loss and is on a low-fat diet and exercise regimen. He has not been taking Trulicity or Jardiance due to insurance issues but is considering switching to Mounjaro. The patient uses a CPAP machine regularly and reports no issues with breathing, although he uses an albuterol inhaler as needed. Health Maintenance - Tetanus vaccination discussed, last received in 2013, due for renewal - Colonoscopy last performed in 2018 - Encouraged low-fat diet and regular exercise for weight management Social History - Reports following a low-fat diet and engaging in regular exercise - Insurance issues affecting medication adherence Review of Systems - Respiratory: Denies fever, reports using albuterol inhaler as needed - General: Reports 7-pound weight loss Physical Exam Results - Ultrasound (November 04): Bilateral nephrolithiasis with 3 mm stones, left renal cyst Plan The patient will continue to manage hypertension with amlodipine and valsartan, and coronary artery disease with aspirin. For diabetes management, the plan in cludes switching from Trulicity to Mounjaro, with Jardiance to be reintroduced pending insurance approval. The patient is advised to maintain a low-fat diet and regular exercise to aid in weight management and overall health improvement. For benign prostatic hyperplasia, the patient will continue with finasteride and tamsulosin, and follow up with urology as needed. The patient is encouraged to stay hydrated to facilitate the passage of kidney stones and will continue using CPAP for obstructive sleep apnea. A tetanus booster is recommended, as the last vaccination was in 2013. Patient was informed and verbally consented to the use of an ambient scribe for clinic note documentation during this visit. Discussion Notes I discussed with the patient the management of his chronic conditions, including hypertension, diabetes, and coronary artery disease. We reviewed the potential switch from Trulicity to Mounjaro for better diabetes control, considering his insurance coverage. I advised him on the importance of maintaining a low-fat diet and regular exercise to support weight management and overall health. We also discussed the need for a tetanus booster, as his last vaccination was in 2013. I recommended staying hydrated to help pass kidney stones and emphasized the continued use of CPAP for sleep apnea management. Patient Instructions - Continue taking amlodipine and valsartan for blood pressure management. - Start Mounjaro for diabetes management and follow up on Jardiance with insurance. - Maintain a low-fat diet and regular exercise routine. - Stay hydrated to help pass kidney stones. - Continue using CPAP machine nightly. - Schedule a tetanus booster as the last one was in 2013. Orders: Orders PFT pulmonary function test Today R06.02 - Shortness of breath XR elbow RT 2V Today M25.521 - Pain in right elbow Medications: New tirzepatide (Mounjaro) for 4 weeks 2.5 mg (0.5 mL) subcut QWEEK 2 mL 3RF E11.65 - Type 2 diabetes mellitus with hyperglycemia Refilled empagliflozin 25 mg PO DAILY 90 tabs 0RF 90 days E11.65 - Type 2 diabetes mellitus with hyperglycemia Discontinued dulaglutide (Trulicity) Discontinued Reason: Insurance Denied 0.75 mg (0.5 mL) subcut QWEEK 2 mL 4RF E11.65 - Type 2 diabetes mellitus with hyperglycemia
[2024-12-04 09:58] VITALS: BP 120/70; PULSE 74; TEMP 36.2; O2SAT 95; BMI 49.1
== END 2024-12-04 10:48 | disposition home or self-care (01) ==
LOC: HO.HMCH 09:48
PROVIDERS: PCP Internal Medicine; Visit Provider Internal Medicine
DX: E11.65 Type 2 diabetes mellitus with hyperglycemia (principal); E66.01 Morbid (severe) obesity due to excess calories; Z68.42 Body mass index [BMI] 45.0-49.9, adult; K76.0 Fatty (change of) liver, not elsewhere classified; N20.0 Calculus of kidney; N40.1 Benign prostatic hyperplasia with lower urinary tract symptoms; N13.8 Other obstructive and reflux uropathy; I10 Essential (primary) hypertension; I25.10 Atherosclerotic heart disease of native coronary artery without angina pectoris; E78.00 Pure hypercholesterolemia, unspecified; F41.1 Generalized anxiety disorder; M25.521 Pain in right elbow

== ENCOUNTER 2024-12-13 08:43 | Outpatient (AMB) | payer OTHER, SELFPAY ==
--- NOTE | 2024-12-13 08:44 | MHC.OFFVIS ---
Intake Visit Reasons: 1y/US/PSA Intake Note: Patient is Present for:1yr follow up Urology Med: Finasteride, Tamsulosin Blood Thinner: Aspirin labs done 12/04/24: psa 0.84 ultrasound done: 11/04/24 pvr: 0 mls Aviation Manager Required: No Accompanied by: Self / Same As Patient Allergies metformin Adverse Reaction (Intermediate, Verified 12/13/24 08:58) Diarrhea HPI Comments Details: Michael JO is a very pleasant male. They are a patient of Dr Hurtado. They are seen in the office today for the following urologic conditions. - elevated PSA - lower urinary tract symptoms - erectile dysfunction PSA maintained in normal range Remains on tamsulosin with finasteride Reduced finasteride dose to Monday, Monday, Monday Good response to sildenafil 100 mg - does not need at this point in time UA did show 2+ blood, spec gravity 1.030 Elevated PSA/Abnormal KESHAV: check in 6 months He presents for further evaluation of elevated - s/p TRUS - negative. Current management is observation. Laboratory investigations include 02/07 4.0 10/09 2.7 11/09 2.9 12/11 6.6, 06/14 1.6 on finasteride, 11/11 1.4, 06/15 1.3, 11/12 1.0, 01/14 9.3, 10/15 1.0, 12/16 1.0 Imaging investigations include a transrectal ultrasound Yes Date 02/2017 Prostate Volume 60 Individualized Prostate Cancer Risk Calculator 5-10% high risk,. A TRUS biopsy has been performed and is negative 03/10 Symptoms include nocturia, x 3, and are stable. Therapeutic plan will be continued surveillance Lower Urinary Tract Symptoms: Current visit is for further evaluation of, predominate obstructive symptoms. Current treatment includes medication, alpha teresa - good response. Prostate Symptom Score Mild (0-8), Bother 3. Symptoms include 09/08 , weak stream, and are progressing 11/08 improved voiding. Prior Prostate Score unknown. Prostate volume 30-50gm. Testing at next visit will include bladder scan. Treatment plan continue with current medications . Erectile dysfunction: Good response to 100 mg sildenafil He presents today for for continued evaluation and management of erectile dysfunction. Symptoms have been present for/since ongoing. Current treatment includes medications. At this time he experiences erections are partial and adequate for vaginal penetration, that undergo rapid detumesence after penetration, YOLA 8-11 Moderate ED. Currently they are in a stable relationship. Therapeutic plan includes increasing dose of oral medication PFSH Medical History PVCs (premature ventricular contractions) Morbid obesity Impaired glucose tolerance Erectile dysfunction Nephrolithiasis Insomnia Coronary artery disease Obstructive sleep apnea BPH (benign prostatic hyperplasia) Hypercholesterolemia Hypertension Surgical History History of prostate biopsy History of colonoscopy History of carpal tunnel surgery of left wrist Family History (Updated 12/04/24 @ 09:56 by NATHALY Clayton) Father S/P CABG x 1 Prostate cancer Diabetes Hypertension Mother Diabetes Hypertension Sister Hypertension FH: ovarian cancer Social History Housing: House Alcohol intake: never Patient Tobacco Use Status: Never used Tobacco e-Cigarette/Vaping Use: Never Used Second Hand Smoke Exposure: No service: No Current occupational status: employed Cognitive needs: No Hearing needs: No Vision needs: Yes (Glasses) Review of Systems Const Denies chills and Denies fever(s) Card Reports no additional complaints and Denies syncope Resp Denies cough GI Denies abdominal pain and Denies heartburn Reports as per HPI and Denies change in libido Neuro Denies syncope Psych Denies change in libido Endo Denies change in libido Physical Exam Const General: cooperative, healthy appearing, comfortable and no acute distress Orientation/consciousness: patient oriented x3 HEENT Face and sinus: Yes normal facial exam Mouth: moist mucous membranes Neck Neck: Yes normal visual inspection, Yes full ROM and Yes trachea midline Chest Chest palpation & inspection: normal inspection of the chest Resp Effort & Inspection: normal respiratory effort, able to speak in complete sentences and no respiratory distress GI Inspection: Yes normal to inspection Back/Spine/Pelvis Cervical Spine: normal cervical lordosis Thoracic/Lumbar Spine: thoracic and lumbar spine normal to inspection Skin General skin exam: no rashes or lesions noted Neuro General: patient oriented x3, gait normal, tone normal and moves all extremities Extrem General: Yes normal to inspection and Yes capillary refill normal Office Procedures Post Void Residual Post Residual Void Post Void Residual (PVR): 0 [id number] Void Residual by ultrasound Results AMB Urinalysis, Automated UA Leukoctes 70 Randal/uL Last Edit by TRINA Costello on 12/13/24 09:11 UA Nitrite Negative Last Edit by TRINA Costello on 12/13/24 09:11 UA Urobilinogen 0.2 mg/dL Last Edit by TRINA Costello on 12/13/24 09:11 UA Protein 300 mg/dL Last Edit by TRINA Costello on 12/13/24 09:11 UA pH 5.5 Last Edit by TRINA Costello on 12/13/24 09:11 UA Blood 80 Jian/uL Last Edit by TRINA Costello on 12/13/24 09:11 UA Specific [place] 1.030 Last Edit by TRINA Costello on 12/13/24 09:11 UA Ketone Negative Last Edit by TRINA Costello on 12/13/24 09:11 UA Bilirubin 0 mg/dL Last Edit by TRINA Costello on 12/13/24 09:11 UA Glucose 0 mg/dL Last Edit by TRINA Costello on 12/13/24 09:11 Results Reviewed Results Reviewed: Laboratory Last Values Urine pH (Auto) 5.5 12/13/24 09:11 Specific [place] (Auto) 1.030 12/13/24 09:11 Urine Protein (Auto) 300 mg/dL 12/13/24 09:11 Glucose (UA)(Auto) 0 mg/dL 12/13/24 09:11 Urine Ketones (Auto) Negative 12/13/24 09:11 Urine Blood (Auto) 80 Jian/uL 12/13/24 09:11 Urine Nitrite (Auto) Negative 12/13/24 09:11 Urine Bilirubin (Auto) 0 mg/dL 12/13/24 09:11 Urine Urobilinogen (Auto) 0.2 mg/dL 12/13/24 09:11 Leukocyte Esterase (Auto) 70 Randal/uL 12/13/24 09:11 Assessment & Plan Assessment & Plan (1) BPH w urinary obs/LUTS: Comment: Benign prostate biopsy March [address]23 Dr. Aguirre Code(s): N40.1 - Benign prostatic hyperplasia with lower urinary tract symptoms; N13.8 - Other obstructive and reflux uropathy Category: Medical (2) Nephrolithiasis: Code(s): N20.0 - Calculus of kidney Category: Medical (3) Erectile dysfunction associated with type 2 diabetes mellitus: Code(s): E11.69 - Type 2 diabetes mellitus with other specified complication; N52.1 - Erectile dysfunction due to diseases classified elsewhere Category: Medical Plan Twelve month follow-up PSA and ultrasound Orders: Orders AMB Post Void Residual by ultrasound Today N13.8 - Other obstructive and reflux uropathy, N40.1 - Benign prostatic hyperplasia with lower urinary tract symptoms AMB Urinalysis Automated Today Z13.9 - Encounter for screening, unspecified US renal BI 12 Months N20.0 - Calculus of kidney Prostate Specific Antigen 12 Months N13.8 - Other obstructive and reflux uropathy, N40.1 - Benign prostatic hyperplasia with lower urinary tract symptoms Patient Instructions: This note is constructed using voice recognition software. While every effort has been made to ensure accuracy culinary assistant errors may have been included. Imaging studies, laboratory and physical exam results were discussed and reviewed in detail. No major barriers to patient understanding were identified. An opportunity to ask questions regarding the treatment plan was provided. All questions were answered. The patient expressed understanding and agreement with the above treatment plan. The patient is aware they should contact our office by phone for worsening of their current condition or the appearance of new urologic symptoms. Compliance is encouraged with any medications and followup testing that is ordered. It is a privilege to participate in the urologic care of your patient. If you have any questions or concerns regarding treatment for the above conditions, or other urologic issues, please do not hesitate to contact me. The office telephone contact is [phone]. Sincerely, Dr Melchor Aguirre MD, [facility] - Urology Compassionate Specialist Care for the Genitourinary System Coding Level of Care Code Est Pt Level 4 (29359) Diagnoses BPH w urinary obs/LUTS N40.1; N13.8 Nephrolithiasis N20.0 Erectile dysfunction associated with type 2 diabetes mellitus E11.69; N52.1 CPT Codes Post Residual Void - PVR CPT Code: 34137-Nuxb Void Residual by ultrasound ([id number])
--- OUTSIDE RECORDS SUMMARY | 2024-12-13 08:56 | XMS_ITS | Clinical Summary ---
Author Organization [facility] Address [address] [id number] Phone Care Team Providers Care Bag Loader Name Role Phone Mara Hurtado MD Primary Care Provider Allergies No known active allergies Medications albuterol [...] Sigmoidoscopy 09/05/2016 Influenza Vaccine (#1) 2024 Insurance [facility] [place] [id number] [facility] [place] [address] Care Teams Bag Loader Relationship Specialty Start Date End Date Mara Hurtado MD [facility] [address] [place], [place] PCP - General Internal Medicine 11/25/22
== END 2024-12-13 09:23 | disposition home or self-care (01) ==
LOC: HO.HUSH 08:44
PROVIDERS: PCP Internal Medicine; Visit Provider Urology
DX: N40.1 Benign prostatic hyperplasia with lower urinary tract symptoms (principal); N13.8 Other obstructive and reflux uropathy; N20.0 Calculus of kidney; E11.69 Type 2 diabetes mellitus with other specified complication; N52.1 Erectile dysfunction due to diseases classified elsewhere; Z13.9 Encounter for screening, unspecified
CPT/HCPCS: 99214

== ENCOUNTER → 2024-12-13 08:43 | Outpatient (BNVA) | payer OTHER, SELFPAY | PROVIDERS: PCP Internal Medicine; Visit Provider Urology | DX: R97.20 Elevated prostate specific antigen [PSA] (principal); N40.1 Benign prostatic hyperplasia with lower urinary tract symptoms; N13.8 Other obstructive and reflux uropathy | CPT/HCPCS: 51798; 81003 ==

== ENCOUNTER 2024-12-17 08:18 | Outpatient (AMB) | payer OTHER, SELFPAY ==
--- NOTE | 2024-12-17 08:21 | MHC.OFFVIS ---
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 He has been doing well from cardiac perspective. He has not been able to lose much weight in his waiting to get GLP 1 approved by his insurance plans. However says at work he is active and moving around has no exertional symptoms of chest pain or shortness of breath. He denies any heart failure symptoms of orthopnea, PND, leg edema. No prolonged palpitation irregular heartbeat. His blood pressure is generally well controlled. He has been using his CPAP regularly. [facility] Medical History PVCs (premature ventricular contractions) Morbid obesity Impaired glucose tolerance Erectile dysfunction Nephrolithiasis Insomnia Coronary artery disease Obstructive sleep apnea BPH (benign prostatic hyperplasia) Hypercholesterolemia Hypertension Surgical History History of prostate biopsy History of colonoscopy History of carpal tunnel surgery of left wrist Family History Father S/P CABG x 1 Prostate cancer Diabetes Hypertension Mother Diabetes Hypertension Sister Hypertension FH: ovarian cancer Social History Housing: House Alcohol intake: never Patient Tobacco Use Status: Never used Tobacco e-Cigarette/Vaping Use: Never Used Second Hand Smoke Exposure: No service: No Current occupational status: employed Cognitive needs: No Hearing needs: No Vision needs: Yes (Glasses) Review of Systems ENT Reports dizziness Card Denies chest pain, Denies chest pain at rest, Denies chest pain with activity, Denies rapid heart rate, Denies pedal edema, Denies edema, Denies leg edema, Denies lightheadedness, Denies palpitations, Denies dyspnea, Denies dyspnea on exertion and Denies orthopnea Resp Denies cough, Denies dyspnea and Denies dyspnea on exertion GI Denies hematochezia and Denies change in stool character Musc Denies abnormal gait, Reports limited range of motion, Reports muscle cramps, Denies muscle weakness, Denies numbness, Denies radiating pain into limb, Denies stiffness and Denies tingling Neuro Denies abnormal gait, Reports dizziness, Denies numbness and Denies tingling Endo Denies palpitations Physical Exam Vital Signs: Last Vital Signs Pulse 70 12/17/24 08:22 BP 120/62 12/17/24 08:22 BMI result Body Mass Index 49.3 Const General: cooperative, comfortable, no acute distress, alert and awake Nutritional Appearance: obese morbidly obese Orientation/consciousness: patient oriented x3 Limitations: no limitations Neck Neck: Yes trachea midline, Yes supple and Yes no JVD Resp Effort & Inspection: normal respiratory effort Auscultation: clear to auscultation bilaterally Cardio Jugular venous distension: no JVD Palpation: normal PMI Rate: regular rate Rhythm: regular rhythm Heart sounds: S1 normal heart sound present and S2 normal heart sound present GI Inspection: Yes obesity Auscultation: normal bowel sounds Skin General skin exam: no rashes or lesions noted Neuro General: patient oriented x3 and no focal motor deficits Extrem General: Yes no clubbing, cyanosis or edema Office Procedures EKG Details: EKG shows normal sinus rhythm with normal EKG [id number], Complete Assessment & Plan Assessment & Plan (1) Coronary artery disease: Comment: Echo June 2018 EF 55-60% nuclear stress negative June 2018, Holter February 23 1019- Code(s): I25.10 - Atherosclerotic heart disease of [place] coronary artery without angina pectoris Category: Medical Qualifiers: Coronary Disease-Associated Artery/Lesion type: [place] artery [place] vs. transplanted heart: [place] heart Associated angina: without angina Qualified Code(s): I25.10 - Atherosclerotic heart disease of [place] coronary artery without angina pectoris Plan: Nonobstructive CAD with no new concerning symptoms in his middle-aged man with multiple risk factors. His primary comorbidities obesity. We addressed this issue. He said he is working on it. We discussed about various options. Consider bariatric referral if he is interested. Continue low-dose aspirin therapy. Continue high-intensity statin therapy with target goal LDL less than 70 mg/dL. Blood pressure is currently well optimized on current therapy. Continue aggressive diabetes management goal hemoglobin A1c less than 7%. Agree with GLP 1 antagonist. Continue high-intensity statin therapy. Encouraged to maintain activity level as tolerated. (2) PVCs (premature ventricular contractions): Code(s): I49.3 - Ventricular premature depolarization Category: Medical Plan: Symptomatic PVCs in the past which are now controlled on current medical therapy. He has not had any significant symptoms related to it. No change in therapy. No pharmacotherapy indicated. Benign nature of isolated PVCs were discussed. Avoidance of stimulants was discussed. Stress mitigation strategies were discussed. Will follow up in the clinic in 2 years time, sooner p.r.n.. Thank you for allowing me to partake in his care Coding Level of Care Code Est Pt Level 4 (42821) Complex EM visit Add On G2211 Diagnoses Coronary artery disease involving [place] coronary artery of [place] heart without angina pectoris I25.10 Coronary Disease-Associated Artery/Lesion type: [place] artery [place] vs. transplanted heart: [place] heart Associated angina: without angina PVCs (premature ventricular contractions) I49.3 CPT Codes EKG - CPT: 54096-[id number], Complete ([id number])
[2024-12-17 08:22] VITALS: BP 120/62; PULSE 70; BMI 49.3
--- OUTSIDE RECORDS SUMMARY | 2024-12-17 08:27 | XMS_ITS | Clinical Summary ---
Author Organization [facility] Address [address] [address] Phone Care Team Providers Care Legal Cashier Name Role Phone Mara Hurtado MD Primary Care Provider [phone] Allergies No known active allergies Medications albuterol [...] Sigmoidoscopy 09/05/2016 Influenza Vaccine (#1) 2024 Insurance [facility] Medicaid [facility] Medicaid Care Teams Legal Cashier Relationship Specialty Start Date End Date Mara Hurtado MD [facility] [id number] [place], [place] PCP - General Internal Medicine 11/25/22
== END 2024-12-17 08:41 | disposition home or self-care (01) ==
LOC: HO.HCS 08:19
PROVIDERS: PCP Internal Medicine; Visit Provider Internal Medicine Cardiovascular Disease
DX: I25.10 Atherosclerotic heart disease of native coronary artery without angina pectoris (principal); I49.3 Ventricular premature depolarization
CPT/HCPCS: 93010; 99214

== ENCOUNTER → 2024-12-17 08:18 | Outpatient (BNVA) | payer OTHER, SELFPAY | PROVIDERS: PCP Internal Medicine; Visit Provider Internal Medicine Cardiovascular Disease | DX: I25.10 Atherosclerotic heart disease of native coronary artery without angina pectoris (principal); I49.3 Ventricular premature depolarization | CPT/HCPCS: 93005 ==